=== PATIENT | female | born 1955 | race Caucasian/White ===

== ENCOUNTER 2017-12-24 11:31 | Inpatient (IN) | payer MEDICARE, OTHER ==
[~2017-12-24] VITALS: Ht 167.6 cm; Wt 54.0 kg
[~2017-12-24 11:31] MED LIST: ALBUTEROL SULF8.5 GM; BENZONATATE100 MG PO; CENESTIN0.625 MG; CIALIS10 MG PO; CITALOPRAM HBR10 MG PO; CITALOPRAM HBR20 MG PO; DOXYCYCLINE HY100 M2 IV; LINZESS PO; MEDROXYPROGEST2.5 MG; MIRALAX; PREDNISONE20 MG PO; VITAMIN D3 PO; ZEGERID 20 MG1 EACH PO; ZEGRID; [UNRECOGNIZED DRUG - OTHER]
--- OUTSIDE RECORDS SUMMARY | 2017-12-24 11:34 | XMS REPORT | Clinical Summary ---
Author Author [facility] Address Unknown Phone Unavailable Care Team Providers Care Civil Engineering Director Name Role Phone PCP Unavailable Allergies Not on File Current Medications Not on file Active Problems Not on file Social History Tobacco Use Types Packs/Day Years Used Date Never Assessed Sex Assigned at Date Recorded Not on file Last Filed Vital Signs Not on file Plan of Treatment Not on file Results Not on fileafter 12/23/2016
[2017-12-24] MEDS ORDERED: GLUCAGON FOR INJ 1 MG VIAL IV ONE (11:45)
[2017-12-24] MEDS ORDERED: LIDOCAINE VISC 2% SOLN 15 ML UDC ONE (12:06)
[2017-12-24] MEDS ORDERED: BELLADONNA ALK/PHENOBARBITAL 5 ML UDC ONE (12:06)
[2017-12-24] MEDS ORDERED: MAGNESIUM/ALUMINUM/SIMETHICONE 30 ML UDC ONE (12:07)
[2017-12-24] MEDS ORDERED: DONNATAL/LIDOCAINE/MAALOX 30 ML SUSP PO ONE (12:20)
[2017-12-24] MEDS ORDERED: ONDANSETRON HCL INJ 2 MG/ML VIAL IV STA (13:05)
[2017-12-24 13:23] LABS: BASOPHILS # (AUTO) 0.1 (0.0-0.1); BASOPHILS % 0.4 % (0.0-1.0); EOSINOPHILS % 0.1 % (0.0-6.0); HEMATOCRIT 50.1 % (34.2-44.1); HEMOGLOBIN 17.1 g/dL (12.0-16.0); LYMPHOCYTES # (AUTO) 0.8 (1.0-3.2); MEAN CORPUSCULAR HEMOGLOBIN 32.4 pg (28-32); MEAN CORPUSCULAR HGB CONC 34.1 g/dL (31-35); MEAN CORPUSCULAR VOLUME 94.9 fL (81-99); MONOCYTES # (AUTO) 0.7 (0.2-0.8); MONOCYTES % 3.6 % (4.4-11.3); NEUTROPHILS # (AUTO) 17.8 (2.1-6.9); NEUTROPHILS % 91.3 % (38.7-80.0); PLATELET COUNT 260 x10e3/uL (140-360); RED BLOOD COUNT 5.28 x10e6/uL (3.6-5.1); RED CELL DISTRIBUTION WIDTH 15.1 % (11.7-14.4)
[2017-12-24] MEDS: MORPHINE SULFATE INJ 4 MG/ML INJ IV PRN ×3 (13:37→19:40)
[2017-12-24 13:42] LABS: ALANINE AMINOTRANSFERASE 28 IU/L (0-55); ALBUMIN/GLOBULIN RATIO 1.3 (0.8-2.0); ALKALINE PHOSPHATASE 158 IU/L (40-150); ANION GAP 15.8 mmol/L (8-16); BLOOD UREA NITROGEN 11 mg/dL (7-26); BUN/CREATININE RATIO 12 (6-25); CALCIUM 10.5 mg/dL (8.4-10.2); CARBON DIOXIDE 23 mmol/L (22-29); CHLORIDE 101 mmol/L (98-107); CREATINE KINASE 40 IU/L (29-168); EST GLOMERULAR FILTRATION RATE > 60 ML/MIN (60-); GLUCOSE 222 mg/dL (74-118); POTASSIUM 3.8 mmol/L (3.5-5.1); SODIUM 136 mmol/L (136-145)
[2017-12-24] MEDS ORDERED: MORPHINE SULFATE 2 MG/ML SYR IV NR (15:22)
[2017-12-24] MEDS ORDERED: PROMETHAZINE 12.5MG/ NACL 0.9% 12.5 MG/50 ML BAG IV NR (15:30)
--- NOTE | 2017-12-24 17:22 | Diagnostic Imaging Report ---
EXAM: CT Abdomen and Pelvis WITH contrast INDICATION: Abdominal pain. Acid reflux. ^abd pain COMPARISON: None. TECHNIQUE: Abdomen and pelvis were scanned utilizing a multidetector helical scanner from the lung base to the pubic symphysis after administration of IV contrast. Coronal and sagittal reformations were obtained. Routine protocol was performed. Scan was performed during portal venous phase. IV CONTRAST: 100 mL of Isovue-370 ORAL CONTRAST: Water COMPLICATIONS: None RADIATION DOSE: Total DLP: 168.2 mGy*cm Estimated effective dose: (DLP x 0.015 x size factor) mSv CTDIvol has been reviewed. It is below the limits set by the Radiation Protocol Committee (RPC). FINDINGS: LINES and TUBES: None. LOWER THORAX: Left lower lobe calcified granuloma. HEPATOBILIARY: No focal hepatic lesions. No biliary ductal dilation. GALLBLADDER: Absent SPLEEN: No splenomegaly. PANCREAS: Low attenuating 2 cm lesion measures 43 HU and located in the pancreatic neck, indeterminate. No ductal dilatation. ADRENALS: No adrenal nodules KIDNEYS/URETERS: Kidneys enhance symmetrically. No hydronephrosis. No cystic or solid mass lesions. No stones. GI TRACT: Fluid within the esophagus which may be related to reflux or incomplete passage of water enteric contrast to the stomach. No abnormal distention, wall thickening, or evidence of bowel obstruction. Moderate amount of stool in the colon. Appendix is not clearly identified. There is however no fat stranding or adenopathy in the right lower quadrant to suggest appendicitis. PELVIC ORGANS/BLADDER: No evidence of the left gonadal vein and adnexal vessels which can be seen with pelvic congestion. LYMPH NODES: No lymphadenopathy. VESSELS: There is moderate atherosclerotic disease in the aorta and major arterial branches. Fusiform nonaneurysmal dilatation of the infrarenal abdominal aorta. Severe narrowing of the left common iliac artery at its origin. PERITONEUM / RETROPERITONEUM: Small amount of free fluid within the pelvis, unexpected in a postmenopausal patient but nonspecific. No free air. BONES: Hemangioma in the L3 vertebral body. No acute osseous lesions. SOFT TISSUES: Unremarkable. IMPRESSION: 1. No acute abnormalities in the abdomen and pelvis. 2. Low attenuating 2 cm pancreatic lesion is indeterminate. Recommend further evaluation with CT abdomen (pancreas protocol) for further evaluation. 3. Small amount of free fluid in the pelvis, unexpected in a postmenopausal patient but nonspecific. Signed by: DR. Oscar Parker MD on 12/24/2017 5:18 PM
[2017-12-24] MEDS ORDERED: DONNATAL/LIDOCAINE/MAALOX 30 ML SUSP PO NR (18:45)
[2017-12-24] MEDS ORDERED: MORPHINE SULFATE 2 MG/ML SYR IV PRN (18:45)
--- OUTSIDE RECORDS SUMMARY | 2017-12-24 18:45 | XMS REPORT ---
Author Author [facility] Address Unknown Phone Unavailable Care Team Providers Care Lathing Supervisor Name Role Phone Feliciano DIAZ Unavailable Unavailable Problems This patient has no known problems. Allergies, Adverse Reactions, Alerts This patient has no known allergies or adverse reactions. Medications This patient has no known medications. Results Test Description Test Time Test Comments Text Results Atomic Results Result Comments CT ABDOMEN/PELVIS W 2017-12-24 17:05:00 [place] [id number] Patient Name: ESTRELLA MCKEON MR #: [id number] : 1955 Age/Sex: 62/F Req #: [id number] [facility] Physician: Ordered by: CURLY DIAZ MD Report #: [id number] Location: ER Room/Bed: Procedure: [id number] CT/CT ABDOMEN/PELVIS W Exam Date: Exam Time: REPORT STATUS: Signed EXAM: CT Abdomen and Pelvis WITH contrast INDICATION: Abdominal pain. Acid reflux. abd pain COMPARISON: None. TECHNIQUE: Abdomen and pelvis were scanned utilizing a multidetector helical scanner from the lung base to the pubic symphysis after administration of IV contrast. Coronal and sagittal reformations were obtained. Routine protocol was performed. Scan was performed during portal venous phase. IV CONTRAST: 100 mL of Isovue- 370 ORAL CONTRAST: Water COMPLICATIONS: None RADIATION DOSE: Total DLP: 168.2 mGy*cm Estimated effective dose: (DLP x 0.015 x size factor) mSv CTDIvol has been reviewed. It is below the limits set by the Radiation Protocol Committee (RPC). FINDINGS: LINES and TUBES: None. LOWER THORAX: Left lower lobe calcified granuloma. HEPATOBILIARY: No focal hepatic lesions. No biliary ductal dilation. GALLBLADDER: Absent SPLEEN: No splenomegaly. PANCREAS: Low attenuating 2 cm lesion measures 43 HU and located in the pancreatic neck, indeterminate. No ductal dilatation. ADRENALS: No adrenal nodules KIDNEYS/URETERS: Kidneys enhance symmetrically. No hydronephrosis. No cystic or solid mass lesions. No stones. GI TRACT: Fluid within the esophagus which may be related to reflux or incomplete passage of water enteric contrast to the stomach. No abnormal distention, wall thickening, or evidence of bowel obstruction. Moderate amount of stool in the colon. Appendix is not clearly identified. There is however no fat stranding or adenopathy in the right lower quadrant to suggest appendicitis. PELVIC ORGANS/BLADDER: No evidence of the left gonadal vein and adnexal vessels which can be seen with pelvic congestion. LYMPH NODES: No lymphadenopathy. VESSELS: There is moderate atherosclerotic disease in the aorta and major arterial branches. Fusiform nonaneurysmal dilatation of the infrarenal abdominal aorta. Severe narrowing of the left common iliac artery at its origin. PERITONEUM / RETROPERITONEUM: Small amount of free fluid within the pelvis, unexpected in a postmenopausal patient but nonspecific. No free air. BONES: Hemangioma in the L3 vertebral body. No acute osseous lesions. SOFT TISSUES: Unremarkable. IMPRESSION: 1. No acute abnormalities in the abdomen and pelvis. 2. Low attenuating 2 cm pancreatic lesion is indetermi sharon. Recommend further evaluation with CT abdomen (pancreas protocol) for further evaluation. 3. Small amount of free fluid in the pelvis, unexpected in a postmenopausal patient but nonspecific. Signed by: DR. Oscar Ochoa MD on 12/24/2017 5:18 PM Dictated By: OSCAR OCHOA MD 17 Transcribed By: DANIEL on 12/24/171717 COPY TO: CURLY DIAZ MD
--- OUTSIDE RECORDS SUMMARY | 2017-12-24 18:45 | XMS REPORT | Clinical Summary ---
Author Author [facility] Address Unknown Phone Unavailable Care Team Providers Care Data Processing Supervisor Name Role Phone PCP Unavailable Allergies Not on File Current Medications Not on file Active Problems Not on file Social History Tobacco Use Types Packs/Day Years Used Date Never Assessed Sex Assigned at Date Recorded Not on file Last Filed Vital Signs Not on file Plan of Treatment Not on file Results Not on fileafter 12/23/2016
[2017-12-24] MEDS: ONDANSETRON HCL INJ 2 MG/ML VIAL IV PRN (19:40)
[2017-12-24 21:00] VITALS: BP 170/79
[2017-12-24 21:50] VITALS: BP 170/79
[2017-12-24] MEDS ORDERED: SODIUM CHLORIDE 0.9% 50ML 50 ML ONE (22:31)
[2017-12-24] MEDS ORDERED: IOPAMIDOL 370 MG/ML 200 ML INFUS..BTL INJ ONE (22:31)
[2017-12-24] MEDS ORDERED: PANTOPRAZOLE SOD 40 MG TABEC PO ONE (22:45)
[2017-12-24] MEDS: HYDROMORPHONE 2MG/ML 2 MG/ML ML IV PRN (22:55)
[2017-12-24] MEDS ORDERED: MIRALAX17 GM PO (23:38)
[2017-12-24] MEDS ORDERED: ZANTAC300 MG PO (23:38)
[2017-12-24] MEDS ORDERED: CIALIS20 MG PO (23:38)
[2017-12-25] VITALS (9 sets, daily range): BP systolic 57–119; BP diastolic 50–62
[2017-12-25] MEDS: ONDANSETRON HCL INJ 2 MG/ML VIAL IV PRN ×2 (03:53→11:30)
[2017-12-25] MEDS: HYDROMORPHONE 2MG/ML 2 MG/ML ML IV PRN (03:53)
[2017-12-25] MEDS ORDERED: NON-FORMULARY MEDICATION (Ranitidine Hcl (Zantac) 300 MG) PO PRN (04:00)
[2017-12-25] MEDS ORDERED: FAMOTIDINE 20 MG TAB PO PRN (04:15)
[2017-12-25] MEDS ORDERED: PROMETHAZINE 25MG/ NS 50ML (IV) IV PRN (05:15)
[2017-12-25 05:21] LABS: BASOPHILS # (AUTO) 0.1 (0.0-0.1); BASOPHILS % 0.4 % (0.0-1.0); EOSINOPHILS % 0.1 % (0.0-6.0); HEMATOCRIT 46.8 % (34.2-44.1); HEMOGLOBIN 15.9 g/dL (12.0-16.0); LYMPHOCYTES # (AUTO) 1.5 (1.0-3.2); LYMPHOCYTES % 9.2 % (18.0-39.1); MEAN CORPUSCULAR HEMOGLOBIN 32.3 pg (28-32); MEAN CORPUSCULAR VOLUME 95.1 fL (81-99); MONOCYTES # (AUTO) 1.5 (0.2-0.8); MONOCYTES % 9.4 % (4.4-11.3); NEUTROPHILS # (AUTO) 13.3 (2.1-6.9); NEUTROPHILS % 80.5 % (38.7-80.0); PLATELET COUNT 263 x10e3/uL (140-360); RED BLOOD COUNT 4.92 x10e6/uL (3.6-5.1); RED CELL DISTRIBUTION WIDTH 15.5 % (11.7-14.4)
[2017-12-25 05:49] LABS: ALBUMIN 3.9 g/dL (3.5-5.0); ALBUMIN/GLOBULIN RATIO 1.3 (0.8-2.0); ANION GAP 18.1 mmol/L (8-16); CALCIUM 10.4 mg/dL (8.4-10.2); CREATININE, SERUM 1.22 mg/dL (0.57-1.11); POTASSIUM 4.1 mmol/L (3.5-5.1)
[2017-12-25] MEDS ORDERED: SODIUM CHLORIDE 0.9% 1000ML 1,000 ML IV SCH ×2 (08:30)
[2017-12-25] MEDS: CITALOPRAM HYDROBROMIDE 20 MG TAB PO SCH (08:31)
[2017-12-25] MEDS: POLYETHYLENE GLYCOL 3350 17 GM PACK PO SCH (08:32)
[2017-12-25] MEDS: PANTOPRAZOLE SODIUM 40 MG SUSPDR.PKT PO SCH ×2 (08:32→16:22)
[2017-12-25] MEDS: TADALAFIL 20 MG PO SCH (08:32)
[2017-12-25] MEDS ORDERED: SODIUM BICARBONATE PO SCH (09:00)
[2017-12-25] MEDS ORDERED: NON-FORMULARY MEDICATION (Citalopram Hydrobromide (Citalopram Hbr) 10 MG) PO SCH (09:00)
[2017-12-25] MEDS ORDERED: OMEPRAZOLE PO SCH (09:00)
[2017-12-25] MEDS ORDERED: POLYETHYLENE GLYCOL PO SCH (09:00)
[2017-12-25] MEDS: MORPHINE SULFATE INJ 4 MG/ML INJ IV PRN (11:30)
--- NOTE | 2017-12-25 15:22 | Consultation ---
DATE OF CONSULTATION: December 25, 2017 GASTROENTEROLOGY CONSULTATION HISTORY OF PRESENT ILLNESS: This is a 62-year-old who presented to the hospital because of abdominal pain along with some nausea and vomiting. Patient denies any bleeding along with this problem. Her workup so far revealed that her liver enzymes were okay. Her WBC was high at 19,000 on admission. It is down to 16,000. She did have a CAT scan of the abdomen and pelvis which shows a 2 cm pancreatic lesion in the neck of the pancreas. There is small free fluid and air in the pelvis suspected. She has a history of scleroderma. ALLERGIES: NONE. CURRENT MEDICATIONS: Including morphine, MiraLAX, Protonix and Pepcid. SOCIAL HISTORY: No alcohol use. FAMILY HISTORY: Noncontributory. REVIEW OF SYSTEMS: Denies any chest pain or shortness of breath. Denies any dysphagia or odynophagia. Denies any dysuria, hematuria, or any kind of syncopal episode. PHYSICAL EXAMINATION GENERAL: The patient is awake, alert, appears to be stable. VITAL SIGNS: Afebrile currently. HEAD, EYES, EARS, NOSE AND THROAT: Normocephalic and atraumatic. Sclera is anicteric. NECK: Supple. HEART: Exam is regular. LUNGS: Exam clear. ABDOMEN: Soft. There is some tenderness in the epigastric area. There is no rebound or mass. EXTREMITIES: No clubbing or cyanosis. LAB VALUES: Significant for CMP appears to be normal, BUN of ____, ____ ____. WBC 16.46, hemoglobin of 15.9, hematocrit of 46.8. IMPRESSION 1. Abdominal pain, nausea and vomiting. 2. Pancreatic lesion. 3. Scleroderma. RECOMMENDATIONS: Continue on the current care at this point. I will add some Carafate at this point. Obtain CA19-9 and CEA. Patient will need to have an EGD and possible EUS with FNA. Job#: [id number] EV cc:NEGRA ROWE MD
[2017-12-25] MEDS ORDERED: DIPHENHYDRAMINE HCL 25 MG CAP PO ONE (16:15)
[2017-12-25] MEDS: SUCRALFATE 1 GM TAB PO SCH ×2 (16:22→20:25)
[2017-12-26] VITALS (8 sets, daily range): BP systolic 105–135; BP diastolic 56–73
[2017-12-26] MEDS: MORPHINE SULFATE INJ 4 MG/ML INJ IV PRN ×3 (00:52→19:22)
[2017-12-26] MEDS: ONDANSETRON HCL INJ 2 MG/ML VIAL IV PRN ×3 (00:52→19:22)
[2017-12-26 05:19] LABS: BASOPHILS # (AUTO) 0.1 (0.0-0.1); BASOPHILS % 0.8 % (0.0-1.0); EOSINOPHILS # (AUTO) 0.5 (0.0-0.4); EOSINOPHILS % 4.2 % (0.0-6.0); HEMATOCRIT 40.5 % (34.2-44.1); HEMOGLOBIN 13.6 g/dL (12.0-16.0); LYMPHOCYTES # (AUTO) 2.3 (1.0-3.2); LYMPHOCYTES % 19.7 % (18.0-39.1); MEAN CORPUSCULAR HEMOGLOBIN 32.5 pg (28-32); MEAN CORPUSCULAR HGB CONC 33.6 g/dL (31-35); MEAN CORPUSCULAR VOLUME 96.7 fL (81-99); MONOCYTES # (AUTO) 1.5 (0.2-0.8); MONOCYTES % 12.5 % (4.4-11.3); NEUTROPHILS # (AUTO) 7.4 (2.1-6.9); NEUTROPHILS % 62.5 % (38.7-80.0); PLATELET COUNT 185 x10e3/uL (140-360); RED BLOOD COUNT 4.19 x10e6/uL (3.6-5.1); RED CELL DISTRIBUTION WIDTH 15.5 % (11.7-14.4)
[2017-12-26] MEDS: SUCRALFATE 1 GM TAB PO SCH ×2 (07:30→12:24)
[2017-12-26] MEDS: TADALAFIL 20 MG PO SCH (09:00)
[2017-12-26] MEDS: CITALOPRAM HYDROBROMIDE 20 MG TAB PO SCH (09:57)
[2017-12-26] MEDS: PANTOPRAZOLE SODIUM 40 MG SUSPDR.PKT PO SCH ×2 (09:57→17:47)
[2017-12-26] MEDS: POLYETHYLENE GLYCOL 3350 17 GM PACK PO SCH (09:57)
--- NOTE | 2017-12-26 19:16 | Progress Note ---
DATE: December 26, 2017 SUBJECTIVE: Patient reports no vomiting; however, she still continues to have intermittent nausea. She is able to tolerate cardiac diet. REVIEW OF SYSTEMS GENERAL: No fever or chills. CVS: No chest pain or palpitation. RESPIRATORY: No cough or expectoration. MEDICATIONS: Reviewed as per MAY. She is on sucralfate, polyethylene glycol, pantoprazole 40 mg twice daily, citalopram, morphine sulfate 4 mg IV q.4 hours as needed, Zofran, famotidine 40 mg p.o. daily as needed. PHYSICAL EXAMINATION VITAL SIGNS: Temperature 98.6, pulse 84, respirations 18, and pulse ox 94 on room air. GENERAL: Not in any acute distress. HEENT: Oral mucosa is moist. Anicteric sclerae. ABDOMEN: Soft. Mild epigastric tenderness on deep palpation without rebound, rigidity, or guarding. Positive bowel sounds. LABS: WBC has come down to 11.89, hemoglobin 13.6, hematocrit 40.5, and platelet count 185. Sodium 138, potassium 4.1, chloride 102, bicarb 22, BUN 17, creatinine 1.22, and glucose 110. Liver enzymes normal. CT of the abdomen and pelvis with IV and oral contrast done on December 24, 2017 showed low attenuating 2 cm pancreatic lesion, located in the pancreatic neck, this is indeterminate. No acute intra-abdominal pathology. IMPRESSION 1. Nausea, vomiting, and epigastric pain. Nausea has resolved. Esophagogastroduodenoscopy has been planned on Thursday. Patient told me that she is taking 2 to 3 pills of ibuprofen every day for headache for any months. This puts her at risk of developing peptic ulcer disease. 2. A 2 cm hypoattenuating lesion in the pancreatic neck. This certainly needs further evaluation with endoscopic ultrasound and fine-needle aspiration cytology. This can be done electively as an outpatient. 3. Patient is on sucralfate, Zofran as well as morphine. This put her at the risk of constipation. Therefore, she should be on extending bowel regimen. Patient is also on famotidine as well as pantoprazole. I do not feel the need to continue on both; therefore, discontinuing famotidine. PLAN: Continue present management. Advance diet as tolerated. EGD on Thursday. NPO past Thursday midnight. EGD on Thursday by Dr. Dover. Job#: [id number] YOLANDA
[2017-12-26] MEDS: SENNA-S TABLET PO SCH (20:20)
[2017-12-27] VITALS (9 sets, daily range): BP systolic 114–141; BP diastolic 58–68
[2017-12-27] MEDS: POLYETHYLENE GLYCOL 3350 17 GM PACK PO SCH (08:40)
[2017-12-27] MEDS: MORPHINE SULFATE INJ 4 MG/ML INJ IV PRN ×3 (08:40→19:30)
[2017-12-27] MEDS: ONDANSETRON HCL INJ 2 MG/ML VIAL IV PRN ×3 (08:40→19:30)
[2017-12-27] MEDS: CITALOPRAM HYDROBROMIDE 20 MG TAB PO SCH (08:40)
[2017-12-27] MEDS: TADALAFIL 20 MG PO SCH (09:00)
[2017-12-27] MEDS: PANTOPRAZOLE SODIUM 40 MG SUSPDR.PKT PO SCH ×2 (09:00→16:42)
--- NOTE | 2017-12-27 20:00 | Progress Note ---
DATE: December 27, 2017 GI PROGRESS NOTE SUBJECTIVE: Patient reports occasional nausea without any vomiting. She was able to tolerate full liquid diet. Has had a very small bowel movement yesterday. REVIEW OF SYSTEMS GENERAL: No fever or chills. RESPIRATORY: No cough or expectoration. CVS: No chest pain or palpitation. MEDICATIONS: Pantoprazole 40 mg IV twice daily, morphine 4 mg IV q.4 hours as needed, Zofran 4 mg IV q.4 hours as needed, MiraLax 17 g daily, citalopram 10 mg daily, Senna with docusate 2 pills q.h.s. PHYSICAL EXAMINATION VITAL SIGNS: Temperature 96.8, pulse 71, respirations 18, blood pressure 141/67, oxygen saturation 97% on room air. GENERAL: Not in any acute distress. Oral mucosa is moist. Anicteric sclerae. ABDOMEN: Soft. Mild palpable epigastric tenderness. No other mass or hernia. Positive bowel sounds. IMPRESSION 1. Nausea and vomiting has resolved. 2. Epigastric pain, high suspicion of peptic ulcer disease given regular chronic use of ibuprofen. 3. Constipation, likely slow transit in nature. PLAN: Agreed to continue PPI twice daily. Avoid NSAIDs. Daily stranding bowel regimen to ensure 1 or 2 bowel movements daily. N.p.o. past midnight. EGD tomorrow by Dr. Dover. Job#: [id number] RTY
[2017-12-27] MEDS: SENNA-S TABLET PO SCH (20:40)
[2017-12-28] VITALS (7 sets, daily range): BP systolic 101–121; BP diastolic 51–65
[2017-12-28] MEDS: PANTOPRAZOLE SODIUM 40 MG SUSPDR.PKT PO SCH ×2 (09:00→17:00)
[2017-12-28] MEDS: POLYETHYLENE GLYCOL 3350 17 GM PACK PO SCH (09:00)
[2017-12-28] MEDS: TADALAFIL 20 MG PO SCH (09:00)
[2017-12-28] MEDS: CITALOPRAM HYDROBROMIDE 20 MG TAB PO SCH (09:00)
[2017-12-28] MEDS: MORPHINE SULFATE INJ 4 MG/ML INJ IV PRN ×3 (09:13→20:18)
[2017-12-28] MEDS: ONDANSETRON HCL INJ 2 MG/ML VIAL IV PRN ×2 (09:13→20:18)
[2017-12-28] MEDS ORDERED: MIDAZOLAM HCL 2 MG/2 ML VIAL ONE (18:28)
[2017-12-28] MEDS ORDERED: PROPOFOL IV EMULSION 10 MG/ML 20 ML VIAL ONE (19:03)
[2017-12-28] MEDS: SENNA-S TABLET PO SCH (20:17)
[2017-12-29] VITALS (7 sets, daily range): BP systolic 109–161; BP diastolic 55–82
[2017-12-29] MEDS: MORPHINE SULFATE INJ 4 MG/ML INJ IV PRN ×4 (07:49→21:49)
[2017-12-29] MEDS: POLYETHYLENE GLYCOL 3350 17 GM PACK PO SCH (09:00)
[2017-12-29] MEDS: PANTOPRAZOLE SODIUM 40 MG SUSPDR.PKT PO SCH ×2 (09:00→17:00)
[2017-12-29] MEDS: TADALAFIL 20 MG PO SCH (09:00)
[2017-12-29] MEDS: CITALOPRAM HYDROBROMIDE 20 MG TAB PO SCH (09:00)
[2017-12-29] MEDS: SENNA-S TABLET PO SCH (21:00)
[2017-12-29] MEDS: ONDANSETRON HCL INJ 2 MG/ML VIAL IV PRN (21:48)
[2017-12-30] VITALS: BP 96/56
[2017-12-30 04:00] VITALS: BP 120/66
[2017-12-30 06:14] LABS: BASOPHILS # (AUTO) 0.1 (0.0-0.1); BASOPHILS % 0.9 % (0.0-1.0); EOSINOPHILS # (AUTO) 0.4 (0.0-0.4); EOSINOPHILS % 6.5 % (0.0-6.0); HEMATOCRIT 41.5 % (34.2-44.1); HEMOGLOBIN 13.8 g/dL (12.0-16.0); LYMPHOCYTES # (AUTO) 1.8 (1.0-3.2); LYMPHOCYTES % 26.5 % (18.0-39.1); MEAN CORPUSCULAR HEMOGLOBIN 32.3 pg (28-32); MEAN CORPUSCULAR HGB CONC 33.3 g/dL (31-35); MEAN CORPUSCULAR VOLUME 97.2 fL (81-99); MONOCYTES # (AUTO) 0.6 (0.2-0.8); MONOCYTES % 8.7 % (4.4-11.3); NEUTROPHILS # (AUTO) 3.8 (2.1-6.9); NEUTROPHILS % 57.2 % (38.7-80.0); PLATELET COUNT 196 x10e3/uL (140-360); RED BLOOD COUNT 4.27 x10e6/uL (3.6-5.1); RED CELL DISTRIBUTION WIDTH 14.6 % (11.7-14.4)
[2017-12-30 06:40] LABS: ALANINE AMINOTRANSFERASE 26 IU/L (0-55); ALBUMIN 3.1 g/dL (3.5-5.0); ALBUMIN/GLOBULIN RATIO 1.2 (0.8-2.0); ALKALINE PHOSPHATASE 116 IU/L (40-150); ANION GAP 11.9 mmol/L (8-16); BLOOD UREA NITROGEN 6 mg/dL (7-26); BUN/CREATININE RATIO 8 (6-25); CALCIUM 9.5 mg/dL (8.4-10.2); CARBON DIOXIDE 24 mmol/L (22-29); CHLORIDE 104 mmol/L (98-107); CREATININE, SERUM 0.71 mg/dL (0.57-1.11); EST GLOMERULAR FILTRATION RATE > 60 ML/MIN (60-); GLUCOSE 81 mg/dL (74-118); POTASSIUM 3.9 mmol/L (3.5-5.1); SODIUM 136 mmol/L (136-145)
[2017-12-30 07:15] VITALS: BP 127/69
[2017-12-30] MEDS: PANTOPRAZOLE SODIUM 40 MG SUSPDR.PKT PO SCH (09:00)
[2017-12-30] MEDS: TADALAFIL 20 MG PO SCH (09:00)
[2017-12-30] MEDS: CITALOPRAM HYDROBROMIDE 20 MG TAB PO SCH (09:00)
[2017-12-30] MEDS: POLYETHYLENE GLYCOL 3350 17 GM PACK PO SCH (09:00)
[2017-12-30 09:06] VITALS: BP 127/69
[2017-12-30] MEDS: ONDANSETRON HCL INJ 2 MG/ML VIAL IV PRN (10:07)
[2017-12-30] MEDS: MORPHINE SULFATE INJ 4 MG/ML INJ IV PRN (10:08)
[2017-12-30 11:20] VITALS: BP 133/73
[2017-12-30 12:46] LABS: PLATELET ESTIMATE ADEQUATE; PLATELET MORPHOLOGY COMMENT FEW LARGE; RBC MORPHOLOGY COMMENT NORMAL
--- NOTE | 2018-03-06 19:43 | Discharge Summary ---
DISCHARGE DIAGNOSES 1. Abdominal pain. 2. Scleroderma. HISTORY OF PRESENT ILLNESS AND HOSPITAL COURSE: Patient is a 62-year-old with history of scleroderma, who presents with significant abdominal pain that was affecting her p.o. intake. She was brought in, placed on pain control, seen by GI who performed an EGD that just shows some mild gastritis, but otherwise unremarkable exam. He did some biopsies. I also did an upper GI. Please see report for full details. At the time of discharge, patient was feeling significantly better, being on a proton pump inhibitor. So, she was discharged home with continuation of that medication and follow up in 1 to 2 weeks with me as well as 1 [address] Dover of GI. Please see hospital chart for full details. Job#: [id number] CHIRAG
== END 2017-12-30 11:53 | disposition home or self-care (01) | DRG 384 ==
LOC: ER 11:31 → ERHOLD 18:32 → IMCU 20:52 → OBSVTOIN 12-27 06:53 → MED/SURG3 12-27 10:01
PROVIDERS: ADMIT Internal Medicine; ATTEND Internal Medicine
PROC: 0DB68ZX Excision of Stomach, Via Natural or Artificial Opening Endoscopic, Diagnostic (ICD-10-PCS; principal; 2017-12-27)
DX: K27.9 Peptic ulcer, site unspecified, unspecified as acute or chronic, without hemorrhage or perforation (principal); E44.1 Mild protein-calorie malnutrition; Z68.1 Body mass index [BMI] 19.9 or less, adult; R14.0 Abdominal distension (gaseous); K21.9 Gastro-esophageal reflux disease without esophagitis; K59.00 Constipation, unspecified; N18.3 Chronic kidney disease, stage 3 (moderate); M34.9 Systemic sclerosis, unspecified
CPT/HCPCS: 36415; 43239; 74177; 80053; 82378; 82550; 82553; 83690; 83735; 84484; 85025; 86301; 88305; 88312; 96374; 96375; 96376; 99284; G0378; J1610; J2250; J2270; J2405; J2550; J7030; Q9967

== ENCOUNTER → 2018-01-20 | Outpatient (CLI) | payer MEDICARE ==
[~2018-01-20] MED LIST changes: +CIALIS20 MG PO; +MIRALAX17 GM PO; +ZANTAC300 MG PO
--- NOTE | 2018-01-20 19:43 | Diagnostic Imaging Report ---
Solid-phase gastric emptying study Reason for examination: 62 F with scleroderma; persistent complaint of food gets stuck in her throat. Reports narrowing of the esophagus and dysfunction of the lower esophageal sphincter. The protocol used for this study is based on the Consensus Recommendations for Gastric Scintigraphy by the [place] [employer] Society and the Society of Nuclear Medicine. Clinical information: The patient is not diabetic. The patient has not had prior gastrointestinal surgery other than cholecystectomy in 1978. The patient is not on any medications expected to affect gastric motility. The patient has been fasting for at least 6 hours prior to this exam. Radiopharmaceutical: Tc-99m sulfur colloid 1 mCi Report: The radiopharmaceutical was added to 1/2 cup egg whites that were then prepared and served with 2 pieces of white bread toasted, 30 grams of jam and 4 ounces of water. The patient took the meal orally without difficulty. Images were obtained of the abdomen in the anterior and posterior projections at 10 minutes post the meal and at 1, 2, 3, and 4 hours. Uptake was determined from the geometric mean of the anterior and posterior counts and the counts were corrected for decay of the radiolabel. The percent gastric retention of the labeled meal at: 1 hour was 40% (normal 30-90%) 2 hours was 16% (normal <60%) 3 hours was 4% (normal <30%) 4 hours was 3% (normal <10%) Some tracer is seen in the esophagus on the initial baseline image and persists through one hour but is not present at 2 hours. Impression: Normal gastric emptying pattern. The findings do not support the clinical diagnosis of gastroparesis. Esophageal retention of some of the labeled meal is seen at baseline and decreases by one hour and is gone by the second hour. Signed by: Dr. Shakila Fiore M.D. on 01/20/2018 7:40 PM
== END ==
LOC: NM 09:46
PROVIDERS: ATTEND Internal Medicine Gastroenterology
DX: R10.13 Epigastric pain (principal); R19.09 Other intra-abdominal and pelvic swelling, mass and lump; Z68.1 Body mass index [BMI] 19.9 or less, adult
CPT/HCPCS: 78264; A9541

== ENCOUNTER 2018-12-01 12:19 | Emergency (ER) | payer MEDICARE, OTHER ==
[~2018-12-01] VITALS: Ht 167.6 cm; Wt 54.0 kg
--- OUTSIDE RECORDS SUMMARY | 2018-12-01 12:23 | XMS REPORT | Clinical Summary ---
Author Author [facility] Address Unknown Phone Unavailable Care Team Providers Care Aerial Gunner Superintendent Name Role Phone PCP Unavailable Allergies Not on File Medications Not on file Active Problems Not on file Social History Date Tobacco Use Types Packs/Day Years Used Never Assessed Sex Assigned at Date Recorded Not on file Industry Job Start Date Occupation Not on file Not on file Not on file Travel End Travel History Travel Start No recent travel history available. Last Filed Vital Signs Not on file Plan of Treatment Not on file Results Not on fileafter 11/30/2017
[2018-12-01 13:10] LABS: BASOPHILS # (AUTO) 0.1 (0.0-0.1); BASOPHILS % 1.1 % (0.0-1.0); EOSINOPHILS # (AUTO) 0.1 (0.0-0.4); EOSINOPHILS % 1.8 % (0.0-6.0); HEMATOCRIT 41.7 % (34.2-44.1); HEMOGLOBIN 13.6 g/dL (12.0-16.0); LYMPHOCYTES # (AUTO) 1.2 (1.0-3.2); MEAN CORPUSCULAR HEMOGLOBIN 30.1 pg (28-32); MEAN CORPUSCULAR HGB CONC 32.6 g/dL (31-35); MEAN CORPUSCULAR VOLUME 92.3 fL (81-99); MONOCYTES # (AUTO) 0.5 (0.2-0.8); MONOCYTES % 7.7 % (4.4-11.3); NEUTROPHILS # (AUTO) 4.7 (2.1-6.9); NEUTROPHILS % 71.2 % (38.7-80.0); PLATELET COUNT 240 x10e3/uL (140-360); RED BLOOD COUNT 4.52 x10e6/uL (3.6-5.1); RED CELL DISTRIBUTION WIDTH 15.5 % (11.7-14.4)
[2018-12-01 13:22] LABS: INR 0.94; PROTHROMBIN TIME 13.1 seconds (11.9-14.5)
[2018-12-01 13:23] LABS: PARTIAL THROMBOPLASTIN TIME 30.3 seconds (23.8-35.5)
[2018-12-01 13:48] LABS: ALANINE AMINOTRANSFERASE 40 IU/L (0-55); ALBUMIN 3.3 g/dL (3.5-5.0); ALBUMIN/GLOBULIN RATIO 0.9 (0.8-2.0); ALKALINE PHOSPHATASE 133 IU/L (40-150); ANION GAP 14.7 mmol/L (8-16); BLOOD UREA NITROGEN 14 mg/dL (7-26); BUN/CREATININE RATIO 18 (6-25); CALCIUM 9.4 mg/dL (8.4-10.2); CARBON DIOXIDE 22 mmol/L (22-29); CHLORIDE 102 mmol/L (98-107); CREATINE KINASE 45 IU/L (29-168); CREATININE, SERUM 0.79 mg/dL (0.57-1.11); EST GLOMERULAR FILTRATION RATE > 60 ML/MIN (60-); GLUCOSE 90 mg/dL (74-118); SODIUM 133 mmol/L (136-145)
[2018-12-01 13:59] LABS: POTASSIUM 5.7 mmol/L (3.5-5.1)
--- NOTE | 2018-12-01 14:53 | Diagnostic Imaging Report ---
EXAMINATION: CHEST 2 VIEWS INDICATION: Cough COMPARISON: Chest radiograph of 05/22/2016 FINDINGS: LINES/TUBES:None LUNGS:The lungs are well-inflated. No focal consolidation or pulmonary edema. Unchanged left lower lobe calcified granuloma PLEURA:No pleural effusion or pneumothorax. MEDIASTINUM:The cardiomediastinal silhouette appears normal in size and shape. Atherosclerotic calcifications of the thoracic aorta. BONES/SOFT TISSUES:No acute osseous injury. ABDOMEN:No free air under the diaphragm. IMPRESSION: No focal pneumonia or pulmonary edema. Signed by: Cristal Luz MD on 12/01/2018 2:49 PM
[2018-12-01] MEDS ORDERED: IPRATROPIUM BROMIDE 0.02% 2.5 ML NEB NEB STA (15:10)
[2018-12-01] MEDS ORDERED: METHYLPREDNISOLONE SOD SUCC 125 MG/2ML VIAL IV STA (15:10)
[2018-12-01] MEDS ORDERED: ALBUTEROL SULF 0.083% NEB SOLN 3 ML NEB NEB STA (15:10)
[2018-12-01] MEDS ORDERED: SODIUM CHLORIDE 0.9% 1000ML 1,000 ML IV STA (15:12)
[2018-12-01] MEDS ORDERED: SODIUM CHLORIDE 0.9% 1000ML 1,000 ML ONE (15:17)
== END 2018-12-01 17:20 | disposition home or self-care (01) ==
LOC: ER 12:19
DX: R05 Cough (principal); R06.02 Shortness of breath; J20.9 Acute bronchitis, unspecified; J44.9 Chronic obstructive pulmonary disease, unspecified; M34.9 Systemic sclerosis, unspecified; I73.00 Raynaud's syndrome without gangrene; F17.210 Nicotine dependence, cigarettes, uncomplicated
CPT/HCPCS: 36415; 71046; 80053; 82550; 82553; 84132; 84484; 85025; 85610; 85730; 87400; 94640; 99284; J2930; J7030

== ENCOUNTER 2019-07-01 12:24 | Inpatient (IN) | payer MEDICARE, OTHER ==
[~2019-07-01] VITALS: Ht 167.6 cm; Wt 54.1 kg
[2019-07-01 12:59] LABS: BASOPHILS # (AUTO) 0.1 (0.0-0.1); BASOPHILS % 0.6 % (0.0-1.0); EOSINOPHILS # (AUTO) 0.1 (0.0-0.4); EOSINOPHILS % 0.5 % (0.0-6.0); HEMATOCRIT 40.8 % (34.2-44.1); HEMOGLOBIN 13.5 g/dL (12.0-16.0); LYMPHOCYTES # (AUTO) 1.9 (1.0-3.2); MEAN CORPUSCULAR HEMOGLOBIN 28.2 pg (28-32); MEAN CORPUSCULAR HGB CONC 33.1 g/dL (31-35); MEAN CORPUSCULAR VOLUME 85.4 fL (81-99); MONOCYTES # (AUTO) 0.5 (0.2-0.8); MONOCYTES % 4.7 % (4.4-11.3); NEUTROPHILS # (AUTO) 8.5 (2.1-6.9); NEUTROPHILS % 76.8 % (38.7-80.0); PLATELET COUNT 303 x10e3/uL (140-360); RED BLOOD COUNT 4.78 x10e6/uL (3.6-5.1); RED CELL DISTRIBUTION WIDTH 15.8 % (11.7-14.4)
[2019-07-01] MEDS: MORPHINE SULFATE INJ 4 MG/ML INJ 1ML IV PRN ×3 (13:10→21:09)
[2019-07-01] MEDS: ONDANSETRON HCL INJ 2MG/ML 2ML 2 MG/ML VIAL IV PRN ×2 (13:10→21:08)
[2019-07-01 13:18] LABS: ALANINE AMINOTRANSFERASE 17 IU/L (0-55); ALBUMIN 3.8 g/dL (3.5-5.0); ALBUMIN/GLOBULIN RATIO 1.1 (0.8-2.0); ALKALINE PHOSPHATASE 139 IU/L (40-150); BLOOD UREA NITROGEN 12 mg/dL (7-26); BUN/CREATININE RATIO 16 (6-25); CALCIUM 10.3 mg/dL (8.4-10.2); CARBON DIOXIDE 26 mmol/L (22-29); CHLORIDE 100 mmol/L (98-107); CREATINE KINASE 67 IU/L (29-168); CREATININE, SERUM 0.77 mg/dL (0.57-1.11); EST GLOMERULAR FILTRATION RATE > 60 ML/MIN (60-); GLUCOSE 104 mg/dL (74-118); SODIUM 133 mmol/L (136-145)
[2019-07-01] MEDS ORDERED: FENTANYL CITRATE/PF 100MCG/2 ML INJ IV ONE (14:30)
[2019-07-01] MEDS ORDERED: FENTANYL CITRATE/PF 100MCG/2 ML INJ ONE (14:37)
--- NOTE | 2019-07-01 14:40 | NUR ---
ARRIVED VIA WC FROM ER, AA&OX3, RA, LUNCH TRAY SET UP, PT STATES "ONGOING PAIN ON LEFT FINGER", ORIENTED TO ROOM AND CALL LIGHT SYSTEM, CALL LIGHT WITHIN REACH
[2019-07-01 16:48] VITALS: BP 146/75
--- NOTE | 2019-07-01 17:00 | NUR ---
Dr. Moreau notified that the radiologist is reluctant to perform the ordered CTA and he was provided the radiolgy number and he will call and speak to them.
[2019-07-01] MEDS ORDERED: HEPARIN SOD (PORCINE) 5,000 UNIT/ML VIAL IV NR (17:45)
[2019-07-01] MEDS ORDERED: NIFEDIPINE CR 30 MG TAB PO SCH (18:15)
[2019-07-01 18:24] VITALS: BP 169/92
[2019-07-01 19:12] LABS: BASOPHILS # (AUTO) 0.1 (0.0-0.1); BASOPHILS % 0.7 % (0.0-1.0); EOSINOPHILS # (AUTO) 0.1 (0.0-0.4); EOSINOPHILS % 0.9 % (0.0-6.0); HEMATOCRIT 35.5 % (34.2-44.1); HEMOGLOBIN 11.7 g/dL (12.0-16.0); LYMPHOCYTES # (AUTO) 2.1 (1.0-3.2); LYMPHOCYTES % 25.3 % (18.0-39.1); MEAN CORPUSCULAR HEMOGLOBIN 28.1 pg (28-32); MEAN CORPUSCULAR VOLUME 85.3 fL (81-99); MONOCYTES # (AUTO) 0.8 (0.2-0.8); MONOCYTES % 9.6 % (4.4-11.3); NEUTROPHILS # (AUTO) 5.2 (2.1-6.9); NEUTROPHILS % 63.3 % (38.7-80.0); PLATELET COUNT 252 x10e3/uL (140-360); RED BLOOD COUNT 4.16 x10e6/uL (3.6-5.1); RED CELL DISTRIBUTION WIDTH 15.9 % (11.7-14.4)
--- NOTE | 2019-07-01 19:25 | NUR ---
Report to the oncoming nurse.
--- NOTE | 2019-07-01 19:30 | NUR ---
RECEIVED THE PATIENT IN REPORT.LYEING IN THE BED.BED LOCKED AND IN LOWEST POSITION.STABLE CONDITION.
[2019-07-01 20:00] VITALS: BP 136/74
[2019-07-01 20:08] LABS: INR 0.89; PARTIAL THROMBOPLASTIN TIME 30.4 seconds (23.8-35.5); PROTHROMBIN TIME 12.6 seconds (11.9-14.5)
[2019-07-01] MEDS: DEXTROSE 5% IV SCH (21:00)
[2019-07-01] MEDS: HEPARIN IV SCH (21:00)
--- NOTE | 2019-07-01 21:00 | NUR ---
HEPARIN DRIP STARTED @9.5 ML/HR.STABLE CONDITION.ASSESSMENT DONE.NO RESP.DISTRESS.PHONE AND CALL LIGHT WITHIN REACH.INSTRUCTED TO CALL FOR ASSISTANCE NEEDED.
[2019-07-01 21:01] VITALS: BP 136/74
--- NOTE | 2019-07-01 23:10 | Consultation ---
DATE OF CONSULTATION: 07/01/2019 Cardiology Consultation REQUESTING PHYSICIAN: Chon Reese MD. REASON FOR CONSULTATION: Ischemia of the right hand. HISTORY OF PRESENT ILLNESS: This is a 64-year-old woman with history of emphysema, scleroderma, and Raynaud, who presents with complaints of right middle finger pain and swelling. She states this began approximately one month ago. She was given oral antibiotics without improvement in her symptoms. She notes that she has had pallor and discoloration of the right middle finger for a couple of weeks, worse in the last few days. She therefore was sent to the ER for further evaluation. She denies any chest pain, shortness of breath, palpitations, edema, orthopnea or PND. REVIEW OF SYSTEMS: Negative except as per HPI. PAST MEDICAL HISTORY: 1. Emphysema. 2. Scleroderma. 3. Raynaud. PAST SURGICAL HISTORY: 1. 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 2. Tubal ligation. ALLERGIES: PLEASE SEE EMR. MEDICATIONS: Please see medication list. SOCIAL HISTORY: Smokes approximately 4 cigarettes a month. Denies any alcohol or illicit drugs. FAMILY HISTORY: Denies. PHYSICAL EXAMINATION: VITAL SIGNS: Temperature 97.8 degrees, pulse 67, respiratory rate 20, blood pressure 146/75, oxygen saturation 94%. GENERAL: Well-developed, thin woman, in no acute distress. Awake and alert. HEENT: Normocephalic, atraumatic. Pupils equal. No scleral icterus. NECK: Supple. No thyromegaly or cervical lymphadenopathy. No carotid bruits. LUNGS: Clear to auscultation bilaterally. No wheezes or crackles. HEART: Normal rate, regular rhythm. No murmur. Normal S1, S2. ABDOMEN: Soft, nontender. EXTREMITIES: No edema. Multiple finger amputations are noted. The right middle finger is noted to be pale and cool to palpation with discoloration of the tip. LABORATORY DATA: WBC 11.09, hemoglobin 13.5, hematocrit 40.8, platelets 303. Sodium 133, potassium 4, chloride 100, CO2 of 26, BUN 12, creatinine 0.77. IMPRESSION: 1. Ischemia of the right middle digit. 2. Scleroderma. 3. Raynaud. 4. Emphysema. RECOMMENDATIONS: Start the patient on heparin drip. We will obtain CT angiogram of the right upper extremity to evaluate for any stenosis or occlusion. The patient's blood pressure is elevated, we will start her on calcium channel blockers given her history of Raynaud. We will plan to start nifedipine. We would also like to place topical nitrates, however, the patient is on Cialis as an outpatient. We will avoid topical nitrates at this time. Monitor the hand. Further recommendations pending test results. Thank you for this consult. We will continue. Vanna Rowe MD ABS/MODL /[id number]
[2019-07-02] VITALS (7 sets, daily range): BP systolic 110–136; BP diastolic 61–83
[2019-07-02] MEDS: MORPHINE SULFATE INJ 4 MG/ML INJ 1ML IV PRN ×5 (01:20→17:47)
--- NOTE | 2019-07-02 03:30 | NUR ---
BLOOD TAHIR AND SENT TO THE LAB FOR PTT.
--- NOTE | 2019-07-02 05:00 | NUR ---
PTT IS 139.0.HELD HEPARIN INFUSION FOR 60 MTS.
[2019-07-02] MEDS: ONDANSETRON HCL INJ 2MG/ML 2ML 2 MG/ML VIAL IV PRN (05:02)
--- NOTE | 2019-07-02 06:00 | NUR ---
Heparin drip started 7.5 ml /hr.stable condition.
--- NOTE | 2019-07-02 07:04 | NUR ---
BED SIDE SHIFT REPORT GIVEN TO ONCOMING RN.STABLE CONDITION.
[2019-07-02] MEDS ORDERED: PROMETHAZINE 12.5MG/ NACL 0.9% 12.5 MG/50 ML BAG IV PRN (08:15)
[2019-07-02] MEDS: PROMETHAZINE HCL 25 MG TAB PO PRN ×3 (08:56→17:49)
[2019-07-02] MEDS: NIFEDIPINE CR 30 MG TAB PO SCH (09:00)
--- NOTE | 2019-07-02 10:30 | NUR ---
RECD PT IN BED ,C/O LT HAND PAIN LEVEL 3,
--- NOTE | 2019-07-02 10:36 | Progress Note ---
DATE: Cardiology Progress Note SUBJECTIVE: The patient continues to have pain in her right hand 3rd digit. She states this pain is quite severe and has kept her awake most of the night. Also, endorses some occasional fluttering of her heart. Denies any chest pain or shortness of breath. OBJECTIVE: VITAL SIGNS: Temperature 98.3, pulse 66, respiratory rate 16, blood pressure 118/65, oxygen saturation 91% on room air. GENERAL: Alert and oriented x3. Resting comfortably in bed. NECK: Supple. No JVD noted. LUNGS: Diminished breath sounds throughout. No wheezing. No rhonchi or crackles. CARDIOVASCULAR: Normal rate and rhythm. No murmurs, no gallops. ABDOMEN: Soft, nontender. EXTREMITIES: Lower extremity, no edema. Upper extremity, multiple finger amputations noted on the left hand. Right hand missing the 2nd digit. The 3rd digit on the right hand noted to be pale and cool on palpation and discoloration of the tip of it and severe pain upon touching. CARDIOVASCULAR MEDICATIONS: 1. Heparin IV drip. 2. Nifedipine 30 mg p.o. daily. LABORATORY DATA: Labs, PTT 139. IMPRESSION: 1. Ischemia of the right middle digit. 2. Scleroderma. 3. Raynaud syndrome. 4. Emphysema. RECOMMENDATIONS: Continue heparin drip. Plans to obtain a CT angiogram of the right upper extremity to evaluate any stenosis or occlusion. Ultrasound to her right upper extremity is pending. Order will be changed to be urgent. Continue calcium channel ameena, given her history of Raynaud and also elevated blood pressure. We would also like to place on topical nitrates, however, the patient is on Cialis outpatient. She reports her last dose was 2 days ago. Further recommendations will follow after testing. Dictated by Mikey Moreau MD MD LAKISHA Joe/BLAISEL /[id number]
--- NOTE | 2019-07-02 10:46 | Progress Note ---
DATE: SUBJECTIVE: The patient is a 64-year-old female, who came in with Raynaud's phenomenon with peripheral arterial disease. The patient has pain in the left middle digit, tender, 10/10 in intensity. She has been taking pain medications every 4 hours, asking for more, also nausea. Ongoing patient's current medication, heparin drip, nifedipine, Zofran and morphine. OBJECTIVE: VITAL SIGNS: Temperature is 98.3, pulse of 66, respirations 16, blood pressure is 118/65, pulse oximetry of 91% on room air. HEENT: Normocephalic, atraumatic. Pupils are reactive. CVS: S1 and S2 normal. Regular rate and rhythm. ABDOMEN: Nontender nondistended. EXTREMITIES: Multiple digits are missing in the upper extremities. Currently, the left upper extremity middle finger with tenderness. Small amount of increased hyperpigmentation with decreased pulses in the extremities. The patient is due for an arteriogram today and continues to been in pain. LABORATORY VALUES: White count is down to 18.5, hemoglobin of 11.7, hematocrit 35.3. Chemistry; sodium 133, potassium 4.0, calcium of 10.3. Arteriogram is pending. ASSESSMENT: Ms. Jennifer Waldrop with: 1. Raynaud's phenomenon. 2. Chronic obstructive pulmonary disease. 3. Scleroderma. 4. Emphysema. 5. Ischemia of the right middle digit. PLAN: Continue with heparin drip. CT angiogram to be done today. Calcium channel blockers and heparin on board. The patient continues to be in pain and will go and increase the pain medication every 3 hours and also replace Zofran and alternate with Phenergan. MD MEDINA NoyolaJ/MODL /[id number]
[2019-07-02 11:42] LABS: BASOPHILS # (AUTO) 0.1 (0.0-0.1); BASOPHILS % 0.5 % (0.0-1.0); EOSINOPHILS # (AUTO) 0.1 (0.0-0.4); EOSINOPHILS % 0.5 % (0.0-6.0); HEMATOCRIT 38.8 % (34.2-44.1); HEMOGLOBIN 12.6 g/dL (12.0-16.0); LYMPHOCYTES # (AUTO) 1.7 (1.0-3.2); LYMPHOCYTES % 14.5 % (18.0-39.1); MEAN CORPUSCULAR HEMOGLOBIN 28.1 pg (28-32); MEAN CORPUSCULAR HGB CONC 32.5 g/dL (31-35); MEAN CORPUSCULAR VOLUME 86.6 fL (81-99); MONOCYTES # (AUTO) 0.9 (0.2-0.8); MONOCYTES % 7.4 % (4.4-11.3); NEUTROPHILS # (AUTO) 8.9 (2.1-6.9); NEUTROPHILS % 76.8 % (38.7-80.0); PLATELET COUNT 264 x10e3/uL (140-360); RED BLOOD COUNT 4.48 x10e6/uL (3.6-5.1); RED CELL DISTRIBUTION WIDTH 15.9 % (11.7-14.4)
--- NOTE | 2019-07-02 12:00 | NUR ---
PTT 59,NO CHANGE IN RATE,ANOTHER PTT TO BE DRAWN AT 1800
--- NOTE | 2019-07-02 12:40 | NUR ---
PT C/O PAIN MEDICATED.
--- NOTE | 2019-07-02 17:04 | NUR ---
PT UP IN BED ,NO FUTHER C/O PAIN.
[2019-07-02] MEDS: DEXTROSE 5% IV SCH (17:45)
[2019-07-02] MEDS: HEPARIN IV SCH (17:45)
[2019-07-02] MEDS ORDERED: HEPARIN 25,000 UNIT DRIP IV ONE (17:57)
--- NOTE | 2019-07-02 18:59 | NUR ---
ptt 64.9 no changes ptt to be drawn at 0800 07/02
--- NOTE | 2019-07-02 20:02 | NUR ---
Received change of shift report from AM nurse. Walking rounds completed.
[2019-07-03] VITALS (8 sets, daily range): BP systolic 104–157; BP diastolic 59–81
--- NOTE | 2019-07-03 | NUR ---
Patient AAOx3. Nitro bid placed on mid finger right hand. Patient received pain meds as ordered by MD. Heprin drip at7.5 with a daily lab.IV intact to left FA. Continue monitor.
[2019-07-03] MEDS: MORPHINE SULFATE INJ 4 MG/ML INJ 1ML IV PRN ×3 (00:18→13:29)
[2019-07-03] MEDS: PROMETHAZINE HCL 25 MG TAB PO PRN ×4 (00:18→21:27)
--- NOTE | 2019-07-03 03:37 | NUR ---
Patient resting quitly at this time. Continue monitor.
[2019-07-03] MEDS: NITROGLYCERIN 2% OINT 1 GM PKT TOP SCH ×4 (05:13→19:04)
--- NOTE | 2019-07-03 07:10 | NUR ---
PT UP IN BED ,PAIN LEVEL 3 ,NO DISTRESS NOTED
[2019-07-03 08:06] LABS: BASOPHILS # (AUTO) 0.1 (0.0-0.1); BASOPHILS % 0.6 % (0.0-1.0); EOSINOPHILS # (AUTO) 0.1 (0.0-0.4); EOSINOPHILS % 0.5 % (0.0-6.0); HEMATOCRIT 39.5 % (34.2-44.1); HEMOGLOBIN 12.8 g/dL (12.0-16.0); LYMPHOCYTES # (AUTO) 2.1 (1.0-3.2); LYMPHOCYTES % 22.3 % (18.0-39.1); MEAN CORPUSCULAR HEMOGLOBIN 28.1 pg (28-32); MEAN CORPUSCULAR HGB CONC 32.4 g/dL (31-35); MEAN CORPUSCULAR VOLUME 86.8 fL (81-99); MONOCYTES # (AUTO) 0.9 (0.2-0.8); MONOCYTES % 9.3 % (4.4-11.3); NEUTROPHILS # (AUTO) 6.3 (2.1-6.9); NEUTROPHILS % 67.1 % (38.7-80.0); PLATELET COUNT 247 x10e3/uL (140-360); RED BLOOD COUNT 4.55 x10e6/uL (3.6-5.1); RED CELL DISTRIBUTION WIDTH 16.1 % (11.7-14.4)
[2019-07-03] MEDS: NIFEDIPINE CR 30 MG TAB PO SCH (09:00)
--- NOTE | 2019-07-03 09:59 | Progress Note ---
DATE: SUBJECTIVE: A 64-year-old female, who came in with Raynaud's phenomenon with peripheral arterial disease. The patient had right index finger ischemia. The patient has a Nitro-Bid paste on it. The patient is currently feeling better. Nausea is better. Pain is better on pain medication and also on nausea medications. No chest pain. No shortness of breath. PHYSICAL EXAMINATION: VITAL SIGNS: Temperature is 98.8, pulse of 76, respirations of 16, blood pressure is 126/70, and pulse oximetry of 95%. HEENT: Normocephalic, atraumatic. Pupils reactive to light and accommodation. CVS: S1 and S2 normal. Regular rate and rhythm. ABDOMEN: Nontender and nondistended. EXTREMITIES: Multiple missing digits on the right hand, index finger is tender, but decreased tenderness seen since yesterday. ASSESSMENT: 1. Ischemia of right middle digit. 2. Scleroderma. 3. Raynaud's phenomenon. 4. History of chronic obstructive pulmonary disease. PLAN: 1. Continue heparin drip. CT of the angiogram was not done yet. Upper extremity ultrasound studies pending. Plan, continue with Nitro-Bid paste. 2. Continue with heparin. 3. Pain medication, pain management, and further recommendation per clinical course and also depending on arteriogram. MD BIB Noyola/MODL /[id number]
--- NOTE | 2019-07-03 10:24 | Progress Note ---
DATE: SUBJECTIVE: The patient continues to have severe pain to her right middle finger. She is in tears this morning explaining how bad the pain is. Denies any chest pain or shortness of breath. OBJECTIVE: VITAL SIGNS: Temperature 98.6, pulse 79, respiratory rate 22, blood pressure 157/80, and oxygen saturation 93% on room air. GENERAL: Alert and oriented x3. Resting on the chair. Endorses pain at this time. NECK: Supple. No JVD noted. LUNGS: Diminished breath sounds throughout. No wheezing. No rhonchi or crackles. CARDIOVASCULAR: Normal rate and rhythm. No murmurs, no gallops. ABDOMEN: Soft and nontender. EXTREMITIES: Lower extremity, no edema. Upper extremity, multiple finger amputation on the left hand. On right hand, missing the 2nd digit. The 3rd digit on the right hand has noted to be improving in color, however, still remains slightly pale and also some ulcerated areas and noticed especially around the nail bed. Pain continues upon touching. CARDIOVASCULAR MEDICATIONS: Nitroglycerin topical every 6 hours, nifedipine 30 mg p.o. daily, and heparin IV drip. LABORATORY DATA: WBC 9.38, hemoglobin 12.8, hematocrit 39.5, platelets 247. Sodium 133, potassium 4.0, BUN 12, creatinine 0.77, PTT 56.6. IMAGING STUDIES: Right upper extremity ultrasound negative for any artery stenosis. IMPRESSION: 1. Ischemia of the right middle finger. 2. Scleroderma. 3. Raynaud's syndrome. 4. Emphysema. RECOMMENDATION: Continue heparin drip. At this point, there is no indication to obtain a CT angiogram, given ultrasound of the right upper extremity was negative for any stenosis or occlusion. We will continue medical therapy. Continue topical nitroglycerin and also pain management per primary care. If pain continues and no improvement of symptoms, we will recommend consulting a hand surgeon. Also repeat chest x-ray on her finger, monitor any indication of infection under the nail bed. Dictated by Lindsey Corey, [employer] MD ELDON JoeV/BLAISEL /[id number]
--- NOTE | 2019-07-03 11:08 | Diagnostic Imaging Report ---
RIGHT HAND X-RAY - 3 VIEWS HISTORY: ^R/O INFECTION RT INDEX FINGER ^[id number] ^[id number] ^Y COMPARISON: None available. FINDINGS: Bones: No acute displaced fracture. Status post amputation of the second digit with adjacent mild soft tissue swelling. No cortical irregularity at the stump to suggest osteomyelitis. Joints: The joint spaces are well-maintained. Soft tissues: 3 mm radiopaque foreign body/loose body within the soft tissues adjacent to the dorsal aspect of the distal right first and third digits with surrounding moderate soft tissue swelling. IMPRESSION: Status post amputation of the second digit with adjacent mild soft tissue swelling. No cortical irregularity at the stump to suggest osteomyelitis. Signed by: Dr. Lisy Fernandes M.D. on 07/03/2019 11:05 AM
--- NOTE | 2019-07-03 17:24 | NUR ---
PT IN BED RESTING NO S/S DISCOMFORT
--- NOTE | 2019-07-03 20:00 | NUR ---
Received change of shift report from AM nurse. Walking rounds completed.
[2019-07-03] MEDS: HYDROMORPHONE 1MG/1ML INJ IV PRN (21:26)
[2019-07-04] VITALS (8 sets, daily range): BP systolic 109–141; BP diastolic 65–91
[2019-07-04] MEDS: HYDROMORPHONE 1MG/1ML INJ IV PRN ×6 (01:05→20:54)
[2019-07-04] MEDS: PROMETHAZINE HCL 25 MG TAB PO PRN ×5 (01:05→16:18)
--- NOTE | 2019-07-04 04:10 | NUR ---
Received change of shift report from JUDI ford Walking rounds completed. Addendum: 07/04/19 at 2770 by Mary Jane Chacon RN error
[2019-07-04] MEDS: CEFEPIME 1GM/NS 0.9% 50 ML 50 ML IV SCH ×2 (05:30→18:16)
[2019-07-04 05:48] LABS: BASOPHILS # (AUTO) 0.1 (0.0-0.1); BASOPHILS % 0.4 % (0.0-1.0); EOSINOPHILS % 0.3 % (0.0-6.0); HEMATOCRIT 35.4 % (34.2-44.1); HEMOGLOBIN 11.6 g/dL (12.0-16.0); LYMPHOCYTES # (AUTO) 1.8 (1.0-3.2); LYMPHOCYTES % 14.7 % (18.0-39.1); MEAN CORPUSCULAR HGB CONC 32.8 g/dL (31-35); MEAN CORPUSCULAR VOLUME 85.3 fL (81-99); MONOCYTES # (AUTO) 1.4 (0.2-0.8); MONOCYTES % 11.3 % (4.4-11.3); NEUTROPHILS # (AUTO) 8.7 (2.1-6.9); PLATELET COUNT 231 x10e3/uL (140-360); RED BLOOD COUNT 4.15 x10e6/uL (3.6-5.1); RED CELL DISTRIBUTION WIDTH 15.7 % (11.7-14.4)
[2019-07-04] MEDS: NITROGLYCERIN 2% OINT 1 GM PKT TOP SCH ×4 (06:00→18:16)
--- NOTE | 2019-07-04 06:56 | NUR ---
Received bedside shift report from off going nurse. Patient is resting in bed. No acute distress noted. Call light within reach. Bed in the lowest position.
--- NOTE | 2019-07-04 07:50 | NUR ---
PTT 42.6, heparin rate increased by 100 units or 1 mL. New rate is 8.5. Repeat PTT in 6 hours.
[2019-07-04] MEDS: NIFEDIPINE CR 30 MG TAB PO SCH (08:36)
[2019-07-04] MEDS: HEPARIN IV SCH ×2 (12:05→17:45)
[2019-07-04] MEDS: DEXTROSE 5% IV SCH ×2 (12:05→17:45)
[2019-07-04] MEDS ORDERED: POLYETHYLENE GLYCOL 3350 17 GM PACK PO PRN (12:45)
--- NOTE | 2019-07-04 14:55 | NUR ---
PTT is 50.8, no new changes.
--- NOTE | 2019-07-04 19:15 | NUR ---
patient receivewd awake, alert, lying quietly in bed. vss. no c/o pain noted. pm assessment complete. patient instructed to call for assistance when needed.
--- NOTE | 2019-07-04 19:33 | NUR ---
Bedside shift report given to oncoming nurse. Patient is resting in bed. No acute distress noted. Call light within reach. Bed in the lowest position.
[2019-07-04] MEDS: ONDANSETRON HCL INJ 2MG/ML 2ML 2 MG/ML VIAL IV PRN (20:54)
--- NOTE | 2019-07-04 20:54 | NUR ---
Patient medicated with dilaudid 1mg and zofran 4mg ivp for c/o right hand pain 8/ to the right ac 22 gauge saline lock. patient c/o burning at site when pain medication was given. no signs of redness/swelling noted. offered to place another iv but patient refuses. will continue to monitor.
--- NOTE | 2019-07-04 21:42 | NUR ---
ptt 41.7 heparin drip increaed by 100 units/hr. next ptt in 6 hrs per heparin protocol.
[2019-07-05] VITALS (9 sets, daily range): BP systolic 109–162; BP diastolic 57–81
[2019-07-05] MEDS: HYDROMORPHONE 1MG/1ML INJ IV PRN ×6 (01:06→23:08)
[2019-07-05] MEDS: ONDANSETRON HCL INJ 2MG/ML 2ML 2 MG/ML VIAL IV PRN ×6 (01:06→23:08)
--- NOTE | 2019-07-05 01:07 | NUR ---
patient medicated with dilaudid 1mg and zofran 4mg ivp for c/o right hand pain 7/10 at this time to the right ac 22 gauge iv without difficulty.
--- NOTE | 2019-07-05 04:19 | NUR ---
ptt 66.5 no changes made in rate and next ptt in 6 hrs.
[2019-07-05] MEDS ORDERED: SODIUM CHLORIDE 0.9% 250ML 250 ML ONE (05:30)
[2019-07-05] MEDS: CEFEPIME 1GM/NS 0.9% 50 ML 50 ML IV SCH ×2 (05:30→17:38)
--- NOTE | 2019-07-05 05:30 | NUR ---
patient medicated with dilaudid 1mg and zofran 4mg ivp for c/o right hand pain 7/10 at this time.
[2019-07-05] MEDS: NITROGLYCERIN 2% OINT 1 GM PKT TOP SCH ×4 (05:45→17:41)
[2019-07-05 05:56] LABS: BASOPHILS # (AUTO) 0.1 (0.0-0.1); BASOPHILS % 0.8 % (0.0-1.0); EOSINOPHILS # (AUTO) 0.1 (0.0-0.4); HEMATOCRIT 38.4 % (34.2-44.1); HEMOGLOBIN 12.6 g/dL (12.0-16.0); LYMPHOCYTES % 28.7 % (18.0-39.1); MEAN CORPUSCULAR HEMOGLOBIN 28.5 pg (28-32); MEAN CORPUSCULAR HGB CONC 32.8 g/dL (31-35); MEAN CORPUSCULAR VOLUME 86.9 fL (81-99); MONOCYTES # (AUTO) 0.8 (0.2-0.8); MONOCYTES % 11.2 % (4.4-11.3); NEUTROPHILS # (AUTO) 4.1 (2.1-6.9); NEUTROPHILS % 57.9 % (38.7-80.0); PLATELET COUNT 228 x10e3/uL (140-360); RED BLOOD COUNT 4.42 x10e6/uL (3.6-5.1); RED CELL DISTRIBUTION WIDTH 15.9 % (11.7-14.4)
--- NOTE | 2019-07-05 07:00 | NUR ---
BESIDE SHIFT REPORT RECEIVED FROM FACILITY SERVICE MANAGER RN. PT DENIES NEEDS AT THIS TIME.
[2019-07-05] MEDS: NIFEDIPINE CR 30 MG TAB PO SCH (09:00)
[2019-07-05] MEDS: DEXTROSE 5% IV SCH (17:38)
[2019-07-05] MEDS: HEPARIN IV SCH (17:38)
--- NOTE | 2019-07-05 19:12 | NUR ---
RECEIVED BEDSIDE SHIFT REPORT FROM PREVIOUS NURSE. CALL LIGHT WITHIN REACH. PATIENT SITTING IN BED. PATIENT IN NO DISTRESS.
--- NOTE | 2019-07-05 23:26 | NUR ---
PATIENT'S PTT CAME BACK 57.5 SO WILL NO CHANGE THE RATE OF THE HEPARIN.
[2019-07-06] VITALS (8 sets, daily range): BP systolic 102–122; BP diastolic 59–73
[2019-07-06] MEDS: NITROGLYCERIN 2% OINT 1 GM PKT TOP SCH ×5 (00:37→23:23)
--- NOTE | 2019-07-06 03:28 | NUR ---
DID HOURLY ROUNDING. PATIENT ASLEEP IN BED. CALL LIGHT WITHIN REACH.
[2019-07-06] MEDS: CEFEPIME 1GM/NS 0.9% 50 ML 50 ML IV SCH ×2 (05:25→17:33)
[2019-07-06] MEDS: ONDANSETRON HCL INJ 2MG/ML 2ML 2 MG/ML VIAL IV PRN ×4 (05:32→20:24)
[2019-07-06] MEDS: HYDROMORPHONE 1MG/1ML INJ IV PRN ×4 (05:32→20:24)
[2019-07-06 05:49] LABS: BASOPHILS # (AUTO) 0.1 (0.0-0.1); BASOPHILS % 0.7 % (0.0-1.0); EOSINOPHILS # (AUTO) 0.1 (0.0-0.4); EOSINOPHILS % 0.8 % (0.0-6.0); HEMATOCRIT 33.6 % (34.2-44.1); LYMPHOCYTES # (AUTO) 1.7 (1.0-3.2); LYMPHOCYTES % 22.7 % (18.0-39.1); MEAN CORPUSCULAR HEMOGLOBIN 27.6 pg (28-32); MEAN CORPUSCULAR HGB CONC 31.8 g/dL (31-35); MEAN CORPUSCULAR VOLUME 86.8 fL (81-99); MONOCYTES % 13.4 % (4.4-11.3); NEUTROPHILS # (AUTO) 4.8 (2.1-6.9); PLATELET COUNT 215 x10e3/uL (140-360); RED BLOOD COUNT 3.87 x10e6/uL (3.6-5.1); RED CELL DISTRIBUTION WIDTH 15.8 % (11.7-14.4)
[2019-07-06 06:25] LABS: HEMOGLOBIN 10.7 g/dL (12.0-16.0)
--- NOTE | 2019-07-06 06:34 | NUR ---
CALLED AND TALKED TO DR. ROWE ABOUT THE PATIENT'S HEMOGLOBIN BEING 10.7 TODAY AND IT WAS 12.6 YESTERDAY. HE DID NOT GIVE ANY ORDERS
--- NOTE | 2019-07-06 07:00 | NUR ---
BESIDE SHIFT REPORT RECEIVED FROM FITNESS PLAN COORDINATOR RN. PT DENIES NEEDS AT THIS TIME.
--- NOTE | 2019-07-06 07:06 | NUR ---
GAVE BEDSIDE SHIFT REPORT TO ONCOMING NURSE. CALL LIGHT WITHIN REACH. PATIENT IN BED.
[2019-07-06] MEDS: NIFEDIPINE CR 30 MG TAB PO SCH (08:59)
[2019-07-06] MEDS: DEXTROSE 5% IV SCH (17:35)
[2019-07-06] MEDS: HEPARIN IV SCH (17:35)
[2019-07-06] MEDS: ALPRAZOLAM 0.5 MG TAB PO PRN (18:48)
--- NOTE | 2019-07-06 18:52 | NUR ---
HEPARIN DRIP STOPPED AT THIS TIME.
--- NOTE | 2019-07-06 19:15 | NUR ---
RECEIVED REPORT FROM PREVIOUS NURSE. CALL LIGHT WITHIN REACH. PATIENT IN BED.
--- NOTE | 2019-07-06 20:56 | NUR ---
PATIENT COMPLAINING OF SHOOTING PAIN AFTER GIVEN DILAUDID AND WANTS SOMETHING ELSE FOR THE PAIN. CALLED AND TALKED TO DR. ROWE ABOUT THE PATIENT CONCERN AND HE ORDERED GABAPENTIN 100 MG TID.
[2019-07-06] MEDS: GABAPENTIN 100 MG CAP PO SCH (21:14)
--- NOTE | 2019-07-06 23:22 | NUR ---
PATIENT COMPLAINING OF PAIN THAT IS NOT GETTING BETTER AND WANTS A STRONGER PAIN MEDICATION. CALLED AND TALKED TO DR. ROWE AND HE ORDERED 2 MG Q3 DILAUDID.
[2019-07-06] MEDS: HYDROMORPHONE 2MG/ML 2 MG/ML ML IV PRN (23:27)
[2019-07-07] VITALS (9 sets, daily range): BP systolic 98–153; BP diastolic 55–93
--- NOTE | 2019-07-07 03:02 | NUR ---
DID HOURLY ROUNDING. PATIENT ASLEEP IN BED.
[2019-07-07] MEDS: ALPRAZOLAM 0.5 MG TAB PO PRN ×2 (04:10→21:25)
[2019-07-07] MEDS: ONDANSETRON HCL INJ 2MG/ML 2ML 2 MG/ML VIAL IV PRN ×2 (04:10→16:10)
[2019-07-07] MEDS: HYDROMORPHONE 2MG/ML 2 MG/ML ML IV PRN ×3 (04:10→16:10)
[2019-07-07] MEDS: CEFEPIME 1GM/NS 0.9% 50 ML 50 ML IV SCH ×2 (05:26→16:10)
[2019-07-07] MEDS: NITROGLYCERIN 2% OINT 1 GM PKT TOP SCH ×4 (05:40→21:25)
[2019-07-07 05:54] LABS: BASOPHILS # (AUTO) 0.1 (0.0-0.1); BASOPHILS % 0.7 % (0.0-1.0); EOSINOPHILS # (AUTO) 0.1 (0.0-0.4); EOSINOPHILS % 0.8 % (0.0-6.0); HEMOGLOBIN 11.4 g/dL (12.0-16.0); LYMPHOCYTES # (AUTO) 1.4 (1.0-3.2); LYMPHOCYTES % 19.8 % (18.0-39.1); MEAN CORPUSCULAR HEMOGLOBIN 27.7 pg (28-32); MEAN CORPUSCULAR HGB CONC 31.7 g/dL (31-35); MEAN CORPUSCULAR VOLUME 87.4 fL (81-99); MONOCYTES # (AUTO) 1.1 (0.2-0.8); MONOCYTES % 15.7 % (4.4-11.3); NEUTROPHILS # (AUTO) 4.5 (2.1-6.9); NEUTROPHILS % 62.7 % (38.7-80.0); PLATELET COUNT 228 x10e3/uL (140-360); RED BLOOD COUNT 4.12 x10e6/uL (3.6-5.1); RED CELL DISTRIBUTION WIDTH 15.9 % (11.7-14.4)
--- NOTE | 2019-07-07 07:00 | NUR ---
received bedside report. pt is alert sitting up in bed, no s/s of distress. pt c/o pain, dilaudid can be given in 15 min. call light within reach and instructed pt to call RN for help
--- NOTE | 2019-07-07 07:05 | NUR ---
GAVE BEDSIDE SHIFT REPORT TO ONCOMING NURSE. CALL LIGHT WITHIN REACH. PATIENT IN BED.
--- NOTE | 2019-07-07 08:58 | NUR ---
OR is on the unit to take patient for procedure
[2019-07-07] MEDS: GABAPENTIN 100 MG CAP PO SCH ×3 (09:00→21:24)
[2019-07-07] MEDS: NIFEDIPINE CR 30 MG TAB PO SCH (09:00)
[2019-07-07] MEDS ORDERED: MUPIROCIN 2% OINT 22 GM TUBE ONE (10:24)
[2019-07-07] MEDS ORDERED: BUPIVACAINE HCL 0.5% INJ 30 ML VIAL INJ ONE (10:24)
[2019-07-07] MEDS ORDERED: FENTANYL CITRATE/PF 100MCG/2 ML INJ ONE ×2 (11:40→18:34)
--- NOTE | 2019-07-07 12:55 | Operative Report ---
DATE OF PROCEDURE: 07/07/2019 SURGEON: Aron Johnston MD PREOPERATIVE DIAGNOSIS: Gangrene, right long finger. POSTOPERATIVE DIAGNOSIS: Gangrene, right long finger. PROCEDURE: Ray amputation, right long finger. ANESTHESIA: General. HISTORY: The patient is a 64-year-old female with severe ischemic necrosis of the right long finger to vaso-occlusive disorders. Risks, benefits, and alternatives of treatment were discussed with the patient and she is prepared to undergo the procedure as outlined. PROCEDURE IN DETAIL: The patient was marked preoperatively in the holding area. She was brought to the operating theater and after the induction of adequate general anesthesia, she was prepped and draped in a supine position and a time-out was performed. The right upper extremity was elevated for several minutes and then, the tourniquet inflated to a pressure of 250 mmHg. A racquet-type incision was marked out around the base of the right long finger. The incisions were made through the skin and subcutaneous tissue. Venous tributaries were controlled with the bipolar cautery. On the volar aspect of the finger, the radial and ulnar nerve vascular bundles were identified. The digital nerves are placed on stretch. They were transected sharply and the proximal ends were allowed to retract into the substance of the hand. The digital arteries are clamped and then transected and tied with 4-0 Vicryl sutures. At this point, the flexor tendon was transected and the tendon allowed to retract into the palm of the hand. Dorsally, the extensor tendon was transected and it was also allowed to retract. At this point, the collateral ligaments on both the radial and ulnar side of the MP joint are released from the base of the proximal phalanx and then the entire ray digit was removed and sent for permanent pathologic examination. The wound was irrigated with bacteriostatic saline and then the skin was closed with 4-0 nylon in an interrupted horizontal mattress fashion. A Marcaine field block was performed at the operative site. Tourniquet was deflated. The remaining fingers pinked up nicely and a sterile bulking conforming bandage was applied. The patient returned to recovery room in satisfactory condition and then admitted to the hospital for further care and treatment. Aron Johnston MD ER/MODL /[id number]
--- NOTE | 2019-07-07 13:50 | Consultation ---
DATE OF CONSULTATION: 07/06/[address] Chon Reese. Consult requested to Aron Johnston MD, Hand Surgery. CHIEF COMPLAINT: Right long finger ischemia. HISTORY OF PRESENT ILLNESS: The patient is a 64-year-old [id number] female with a very long history of vascular occlusive diseases. She is status post amputations of the index, middle, and ring fingers on the left hand as well as amputations of the right index finger of the right hand. She carries a diagnosis of Raynaud disease and scleroderma. She is maintained on vasodilators. Her most recent event includes admission on 06/30, for severe pain and ischemia of the right long finger. Vascular studies were obtained and they show that the entire digit has significant small vessel disease with almost no flow. The patient has had sympathectomies in the past as well as vascular bypasses to try to improve the circulation to the digits. She states that she has been in severe pain for the past several weeks and it is increasing in severity. She went to the emergency room on the and was admitted. She was started on heparin, but despite all of these maneuvers, the finger remains very painful and symptomatic. Consultation is now requested by Hand Surgery for evaluation. PAST MEDICAL HISTORY: As noted above. PAST SURGICAL HISTORY: As noted above. PERTINENT PHYSICAL EXAMINATION: The right long finger is pale. It is mottled in appearance. It is cool to the touch. There is no capillary refill. There is no radial pulse. There is no ulnar pulse on the right side. LABORATORY DATA: White blood cell count is 7. IMPRESSION: Severe ischemic changes of the right long finger due to vaso-occlusive disease. PLAN: I have discussed with the patient the functional limitations that would be placed on the right hand if she were to lose the long finger ray. She is aware of this. States that the pain is significant and she can end up with amputation anyway, so she feels that she would like to go ahead and have the ray amputated in the a.m. We will keep the patient n.p.o. over midnight. We will stop the heparin and we will consent the patient. Thank you for allowing me to participate in the care your patient. Aron Johnston MD ER/MODL /[id number]
--- NOTE | 2019-07-07 15:47 | NUR ---
Nutrition Intervention Note RD Recommendation(s) for Physician: -Ensure Enlive BID for added nutrition -Recommend liberalizing diet to regular diet The patient meets criteria for MODERATE protein-calorie malnutrition. Plan of Care: RD following, monitoring for tolerance and adequacy Nutrition reason for involvement: Length of stay RD Assessment (07/07/19) Pt is a 64 year old female admitted with Raynauds syndrome. Pt had her right long middle finger amputated today. Pt reports eating <50% of her meals for >1 month. It is recorded that pt consumed 50% of meals yesterday. No weight loss reported and pt mentioned she usually weighs 120 lbs. No N/V/D/C or chewing/swallowing issues at this time. Pt mentioned she usually drinks 1-2 meal replacement shakes. Recommend Ensure Enlive BID for added nutrition and informed RN. Will continue to monitor. Principal Problems/Diagnoses: Raynauds syndrome PMH: emphysema, scleroderma, Raynauds syndrome GI: last recorded BM 07/05 Skin: intact Labs: (06/30) Na 133, Ca 10.3 Meds: cefepime, zofran, Miralax Ht: 66 inches Wt: 119 lbs BMI: 19.3 kg/m2 IBW: 130 lbs Malnutrition Evaluation (07/07/19) The patient meets criteria for MODERATE protein-calorie malnutrition. Energy intake: <75% of estimated energy requirements for >1 month per pt report Weight loss: No weight loss reported Fat loss: pt showed some fat loss in tricep region Muscle loss: pt showed signs of moderate muscle depletion in clavicle region and mild depletion in temporal region Supporting Evidence: Fluid accumulation: no edema per MD note Functional Status: unable to evaluate Nutrition Prescription (Diet Order): cardiac Estimated Nutritional Needs: [id number] calories/day (25-35 kcal/kg CBW) 54-81g protein/day (1.0-1.5 g pro/kg CBW) Diet Adequacy: Not meeting calorie needs, Not meeting protein needs Tolerance: Tolerating PO Diet Education Needs Assessment: Diet education not indicated Nutrition Care Level: low Nutrition Diagnosis: Moderate protein kcal-malnutrition related to h/o inadequate energy intake related pt meeting <75% of estimated energy needs for > 1 month and moderate muscle depletion and mild fat depletion. Goal: Patient will meet 75-100% of estimated needs by follow up Progress: N/A Interventions: -General healthful diet, Commercial beverage, Commercial food, Recommended Modifications, Collaboration with other providers Monitoring/Evaluation: -Total energy intake, Total protein intake, Liquid supplement, Weight change Signed: Angie Womack RD, LD
--- NOTE | 2019-07-07 15:49 | NUR ---
mobile development manager recommends Ensure Enlive BID with meals
[2019-07-07] MEDS ORDERED: PROPOFOL IV EMULSION 10 MG/ML 20 ML VIAL ONE (18:34)
[2019-07-07] MEDS ORDERED: KETOROLAC TROMETHAMINE 30 MG/ML VIAL ONE (18:34)
[2019-07-07] MEDS ORDERED: SEVOFLURANE INHAL SOLN 250 ML PEN BTL ONE (18:34)
[2019-07-07] MEDS ORDERED: ONDANSETRON HCL INJ 2MG/ML 2ML 2 MG/ML VIAL ONE (18:34)
[2019-07-07] MEDS ORDERED: MIDAZOLAM HCL 2 MG/2 ML VIAL ONE (18:34)
[2019-07-07] MEDS ORDERED: LIDOCAINE HCL 2% LOCAL INJ 5 ML SDV VIAL INJ ONE (18:34)
[2019-07-07] MEDS ORDERED: DEXAMETHASONE SOD PHOS INJ 4 MG/ML VIAL ONE (18:34)
[2019-07-08] MEDS: HYDROMORPHONE 2MG/ML 2 MG/ML ML IV PRN ×3 (00:27→10:20)
[2019-07-08 04:47] VITALS: BP 153/79
[2019-07-08] MEDS: CEFEPIME 1GM/NS 0.9% 50 ML 50 ML IV SCH (04:50)
[2019-07-08] MEDS: NITROGLYCERIN 2% OINT 1 GM PKT TOP SCH (04:51)
[2019-07-08 07:59] VITALS: BP 144/67
[2019-07-08 08:00] VITALS: BP 144/67
--- NOTE | 2019-07-08 09:00 | NUR ---
Dr. Johnston cleared the patient for discharge and left prescription. left instructions for pt to keep dressing clean and dry and to follow up in office next week
[2019-07-08] MEDS: GABAPENTIN 100 MG CAP PO SCH (09:27)
[2019-07-08] MEDS: NIFEDIPINE CR 30 MG TAB PO SCH (09:28)
[2019-07-08] MEDS: ALPRAZOLAM 0.5 MG TAB PO PRN (09:30)
--- NOTE | 2019-07-08 09:34 | NUR ---
informed Dr. Reese that Dr. Johnston has cleared the patient for discharge. waiting for orders
--- NOTE | 2019-07-08 09:41 | NUR ---
Dr. Reese approved patient to be discharged
--- NOTE | 2019-07-10 12:11 | Discharge Summary ---
DISCHARGE DIAGNOSES: 1. Ischemic right second finger. 2. Raynaud phenomenon. 3. Tobacco abuser. 4. Hypertension. HOSPITAL PROCEDURES: 1. The patient did have an amputation of the right second finger by Dr. Johnston, no complications. 2. Cellulitis of the right second finger. HISTORY OF PRESENT ILLNESS AND HOSPITAL COURSE: See hospital chart for full details. The patient is a lady with continuous smoking history despite having Raynaud phenomenon with history of prior amputations of the fingers on both hands, who presented with an ischemic right second finger as well as possible cellulitis. She was brought in and placed on IV antibiotics, given IV heparin and topical nitroglycerin. She had arterial studies done that showed no stenotic areas of the large vessels, and she was seen by Dr. Johnston, hand surgeon, who confirmed that the finger was the ischemic, the patient was adamant that she wanted to have it to be amputated, which was performed without complications with significant improvement in her overall pain, and then postoperatively the next day, the patient was able to be discharged home in good condition and will follow up with me in 1 to 2 weeks as well as Dr. Johnston. The patient states she will quit smoking at this time despite my previous multiple lectures and she will continue with her home medications. Please see hospital chart for full details. MD ABRAM Alfred/SHAY /[id number]
== END 2019-07-08 10:42 | disposition home or self-care (01) | DRG 256 ==
LOC: ER 12:24 → ERHOLD 12:53 → MED/SURG3 14:58
PROVIDERS: ADMIT Internal Medicine; ATTEND Internal Medicine
PROC: 0X6Q0Z0 Detachment at Right Middle Finger, Complete, Open Approach (ICD-10-PCS; principal; 2019-07-07 10:22)
DX: I99.8 Other disorder of circulatory system (principal); E44.1 Mild protein-calorie malnutrition; Z68.1 Body mass index [BMI] 19.9 or less, adult; I73.00 Raynaud's syndrome without gangrene; L03.011 Cellulitis of right finger; M34.9 Systemic sclerosis, unspecified; J43.9 Emphysema, unspecified; I10 Essential (primary) hypertension; F41.9 Anxiety disorder, unspecified; F17.200 Nicotine dependence, unspecified, uncomplicated; Z91.19 Patient's noncompliance with other medical treatment and regimen
CPT/HCPCS: 36415; 80053; 82550; 82553; 82948; 83605; 84484; 85025; 85610; 85730; 87040; 87635; 88304; 88305; 88311; 88313; 93930; 99284; J0692; J1100; J1170; J1644; J1885; J2001; J2250; J2270; J2405; J3010; J7050

== ENCOUNTER 2019-09-06 19:35 | Inpatient (IN) | payer MEDICARE, OTHER ==
[~2019-09-06] VITALS: Ht 167.6 cm; Wt 54.4 kg
[2019-09-06] MEDS ORDERED: CEFEPIME 1GM/NS 0.9% 50 ML 50 ML IV SCH (21:00)
--- NOTE | 2019-09-06 21:16 | Emergency Department Note ---
History of Present Illnes History of Present Illness Chief Complaint: General Medicine Complaints History of Present Illness This is a 64 year old female arrives to the ED with right hand pain after recent amputation. Patient with history of Raynaud's disease requiring multiple finger amputations. Onset (how long ago): day(s) Severity: mild Duration (how long): day(s) Timing of current episode: constant Progression: worsening Context: Reports recent surgery Relieving factors: none Exacerbating factors: none Past Medical/Family History Physician Review I have reviewed the patient's past medical and family history. Any updates have been documented here. Past Medical History Recent Fever: No Clinical Suspicion of Infectio: No New/Unexplained Change in Ment: No Past Medical History: COPD Other Medical History: SCLERODERMA, REYNAULD'S, OCCASSIONAL SMOKER (JUST WANTED) Past Surgical History: Cholecysctectomy Other Surgery: AMPUTATION 3 FINGERS ON L. HAND, R. INDEX FINGER, Family History Family history of heart diseas: No Other Last Tetanus: 2016 Review of Systems Review of Systems Constitutional: Reports no symptoms EENTM: Reports no symptoms Cardiovascular: Reports no symptoms Respiratory: Reports no symptoms Gastrointestinal: Reports no symptoms Genitourinary: Reports no symptoms Musculoskeletal: Reports as per HPI, Reports joint pain, Reports joint swelling Integumentary: Reports no symptoms Neurological: Reports no symptoms Psychological: Reports no symptoms Endocrine: Reports no symptoms Hematological/Lymphatic: Reports no symptoms Physical Exam Related Data Allergies: Coded Allergies: codeine (Verified Adverse Reaction, Unknown, nausea/vomiting, 07/01/19) Triage Vital Signs Vital Signs Date Time Temp Pulse Resp B/P (MAP) Pulse Ox O2 Delivery O2 Flow Rate FiO2 09/06/19 20:21 98.0 77 18 195/103 97 Vital signs reviewed: Yes Physical Exam CONSTITUTIONAL Constitutional: Present well-developed, Present well-nourished HENT HENT: Present normocephalic, Present atraumatic, Present oropharynx clear/m oist, Present nose normal HENT L/R: Present left ext ear normal, Present right ext ear normal EYES Eyes: Reports PERRL, Reports conjunctivae normal NECK Neck: Present ROM normal PULMONARY Pulmonary: Present effort normal, Present breath sounds normal CARDIOVASCULAR Cardiovascular: Present regular rhythm, Present heart sounds normal, Present capillary refill normal, Present normal rate GASTROINTESTINAL Abdominal: Present soft, Present nontender, Present bowel sounds normal GENITOURINARY Genitourinary: Present exam deferred SKIN Skin: Present warm, Present dry, Present other (discharge noted from amputation site of right middle index finger superimposed cellulitis) MUSCULOSKELETAL Musculoskeletal: Present ROM normal NEUROLOGICAL Neurological: Present alert, Present oriented x 3, Present no gross motor or sensory deficits PSYCHOLOGICAL Psychological: Present mood/affect normal, Present judgement normal Results Laboratory Lab results reviewed: Yes Assessment & Plan Medical Decision Making MDM 64-year-old female arrived to the ED with drainage and cellulitis over her amputation site several months ago. Patient's x-ray was concerning for some erosion which may be consistent with osteomyelitis. Patient is an active smoker, has extensive ischemia in her distal extremity secondary to Raynauds. Case discussed with Dr. Johnston who accepted consult on patient admitted for IV antibiotics. Assessment & Plan Final Impression: (1) Raynauds syndrome (2) Cellulitis of hand Last Vital Signs Date Time Temp Pulse Resp B/P (MAP) Pulse Ox O2 Delivery O2 Flow Rate FiO2 09/06/19 20:21 98.0 77 18 195/103 97 Home Meds Reported Medications Doxycycline Hyclate (DOXYCYCLINE HYCLATE) 100 Mg Capsule, 100 MG PO Q12H, CAP 09/10/19 Tadalafil (CIALIS) 10 Mg Tablet, 10 MG PO DAILY 09/07/19 Polyethylene Glycol 3350 (MIRALAX) 17 Gm Powd.pack, 1 EACH PO DAILY 12/24/17 Ranitidine Hcl (ZANTAC) 300 Mg Tablet, 300 MG PO DAILY PRN for INDIGESTION 12/24/17 [Vitamin D3] No Conflict Check, PO DAILY 10/29/16 Omeprazole/Sodium Bicarbonate (ZEGERID 20 MG CAPSULE) 1 Each Capsule, 20 MG PO Q12H 10/29/16 Discontinued Reported Medications Tadalafil (CIALIS) 20 Mg Tablet, 10 MG PO DAILY 12/24/17 Citalopram Hydrobromide (CITALOPRAM HBR) 10 Mg Tablet, 10 MG PO DAILY 10/29/16 CURLY QUINTANA DO Sep 06, 2019 21:16
--- NOTE | 2019-09-06 21:24 | Diagnostic Imaging Report ---
HAND 3+ VIEWS RIGHT - 3 views HISTORY: Pain. COMPARISON: 07/03/2019 FINDINGS: Bones: No fracture. Unchanged amputation of the second digit through the metacarpal bone. New amputation of the third digit at the MCP joint. Questionable subtle osseous erosion of the third metacarpal head. Joints: No new joint degenerative change. Soft tissues: Unchanged small soft tissue ossific densities. Nonspecific soft tissue swelling about the third digit. IMPRESSION: Interval amputation of the third digit at the MCP joint. Questionable erosion of the third metacarpal head. Further evaluation with follow-up radiographs versus MRI is suggested. Signed by: Ej Clark MD on 09/06/2019 9:21 PM
[2019-09-06 22:42] LABS: BASOPHILS # (AUTO) 0.1 (0.0-0.1); BASOPHILS % 1.2 % (0.0-1.0); EOSINOPHILS # (AUTO) 0.4 (0.0-0.4); HEMATOCRIT 40.5 % (34.2-44.1); HEMOGLOBIN 13.1 g/dL (12.0-16.0); LYMPHOCYTES # (AUTO) 2.7 (1.0-3.2); LYMPHOCYTES % 31.5 % (18.0-39.1); MEAN CORPUSCULAR HEMOGLOBIN 27.6 pg (28-32); MEAN CORPUSCULAR HGB CONC 32.3 g/dL (31-35); MEAN CORPUSCULAR VOLUME 85.3 fL (81-99); MONOCYTES # (AUTO) 0.9 (0.2-0.8); MONOCYTES % 10.3 % (4.4-11.3); NEUTROPHILS # (AUTO) 4.6 (2.1-6.9); NEUTROPHILS % 52.7 % (38.7-80.0); PLATELET COUNT 282 x10e3/uL (140-360); RED BLOOD COUNT 4.75 x10e6/uL (3.6-5.1); RED CELL DISTRIBUTION WIDTH 17.8 % (11.7-14.4)
[2019-09-06] MEDS ORDERED: KETOROLAC TROMETHAMINE 30 MG/ML VIAL IV STA (22:54)
[2019-09-06 23:01] LABS: ALANINE AMINOTRANSFERASE 20 IU/L (0-55); ALBUMIN 3.9 g/dL (3.5-5.0); ALBUMIN/GLOBULIN RATIO 1.2 (0.8-2.0); ALKALINE PHOSPHATASE 157 IU/L (40-150); ANION GAP 12.3 mmol/L (8-16); BLOOD UREA NITROGEN 6 mg/dL (7-26); BUN/CREATININE RATIO 8 (6-25); CARBON DIOXIDE 20 mmol/L (22-29); CHLORIDE 104 mmol/L (98-107); CREATININE, SERUM 0.71 mg/dL (0.57-1.11); EST GLOMERULAR FILTRATION RATE > 60 ML/MIN (60-); GLUCOSE 83 mg/dL (74-118); POTASSIUM 3.3 mmol/L (3.5-5.1); SODIUM 133 mmol/L (136-145)
[2019-09-06 23:37] VITALS: BP 168/93
[2019-09-06 23:41] VITALS: BP 168/93
[2019-09-07] VITALS (9 sets, daily range): BP systolic 132–168; BP diastolic 69–93
[2019-09-07] MEDS ORDERED: CIALIS10 MG PO (00:11)
[2019-09-07] MEDS ORDERED: VANCOMYCIN 1GM/NS 250 ML 250 ML IV STA (02:05)
--- NOTE | 2019-09-07 02:05 | NUR ---
Patient's EMAR showing one time dose of Vancomycin which was not administered per ER nurse. Was unable to pull medication because pyxis profile was not showing the medication. Pharmacy called and they entered the Medication into the profile to be administered once as ordered. Patient has no allergies to Vancomycin and medication will be administered as ordered x 1 at this time.
[2019-09-07] MEDS: VANCOMYCIN 1GM/NS 250 ML 250 ML IV STA ×2 (02:11→02:12)
--- NOTE | 2019-09-07 04:55 | NUR ---
Physician consultation Called Dr. Johnston's office to notify them of the Routine consult. Message left with answering service.
--- NOTE | 2019-09-07 04:56 | NUR ---
Physician consultation Called Dr. Carmona's office to notify them of the Routine consult . Spoke to the answering service about the consult.
[2019-09-07 06:01] LABS: BASOPHILS # (AUTO) 0.1 (0.0-0.1); EOSINOPHILS # (AUTO) 0.4 (0.0-0.4); EOSINOPHILS % 6.1 % (0.0-6.0); HEMATOCRIT 39.7 % (34.2-44.1); HEMOGLOBIN 12.7 g/dL (12.0-16.0); LYMPHOCYTES # (AUTO) 2.1 (1.0-3.2); LYMPHOCYTES % 33.9 % (18.0-39.1); MEAN CORPUSCULAR HEMOGLOBIN 27.5 pg (28-32); MEAN CORPUSCULAR VOLUME 85.9 fL (81-99); MONOCYTES # (AUTO) 0.7 (0.2-0.8); MONOCYTES % 11.4 % (4.4-11.3); NEUTROPHILS % 47.3 % (38.7-80.0); PLATELET COUNT 267 x10e3/uL (140-360); RED BLOOD COUNT 4.62 x10e6/uL (3.6-5.1); RED CELL DISTRIBUTION WIDTH 17.8 % (11.7-14.4)
[2019-09-07 06:30] LABS: ALANINE AMINOTRANSFERASE 19 IU/L (0-55); ALBUMIN 3.3 g/dL (3.5-5.0); ALBUMIN/GLOBULIN RATIO 1.2 (0.8-2.0); ALKALINE PHOSPHATASE 141 IU/L (40-150); ANION GAP 10.6 mmol/L (8-16); BLOOD UREA NITROGEN 6 mg/dL (7-26); BUN/CREATININE RATIO 8 (6-25); CALCIUM 9.2 mg/dL (8.4-10.2); CARBON DIOXIDE 21 mmol/L (22-29); CHLORIDE 108 mmol/L (98-107); CREATININE, SERUM 0.71 mg/dL (0.57-1.11); EST GLOMERULAR FILTRATION RATE > 60 ML/MIN (60-); GLUCOSE 78 mg/dL (74-118); POTASSIUM 3.6 mmol/L (3.5-5.1); SODIUM 136 mmol/L (136-145)
--- NOTE | 2019-09-07 06:56 | NUR ---
RECEIVED BEDSIDE SHIFT REPORT FROM OFF GOING NURSE. PATIENT IS RESTING IN BED. NO ACUTE DISTRESS NOTED. CALL LIGHT WITHIN REACH. BED IN THE LOWEST POSITION.
[2019-09-07] MEDS ORDERED: IBUPROFEN 600 MG TAB PO PRN (08:00)
[2019-09-07] MEDS ORDERED: ACETAMINOPHEN 325 MG TAB PO PRN (08:00)
[2019-09-07] MEDS: AMLODIPINE BESYLATE 5 MG TAB PO SCH (08:00)
[2019-09-07] MEDS ORDERED: PANTOPRAZOLE 40 MG 10ML VIAL IV SCH (09:00)
[2019-09-07] MEDS: ONDANSETRON HCL 4 MG ORAL DISINTEGRATING TAB PO PRN ×2 (12:20→18:36)
[2019-09-07] MEDS: HYDROCODONE/APAP 10MG-325MG TAB PO PRN ×3 (12:20→22:46)
--- NOTE | 2019-09-07 15:56 | NUR ---
Nutrition Screen Note RD Recommendation for Physician: - Continue current diet as ordered - If PO intake <50% of meals, offer Ensure Enlive Plan of Care: RD following, monitoring for tolerance and adequacy Nutrition reason for involvement: Nutrition Risk Trigger (MST 2) Primary Diagnose(s): cellulitis of hand PMH: emphysema, scleroderma, Raynauds syndrome Ht: 66 in Wt:119 lb BMI: 19.3 kg/m2 IBW:[address] Assessment: (09/07/19) Chart reviewed. Labs and meds reviewed. Pt is a 64 year old female admitted with cellulitis of her hand. Pt reports she typically eats 1 meal/day and drinks 2 nutrition supplements/day. Pt mentioned she ate almost all of her breakfast this morning. It is recorded that pt consumed 75% of breakfast. No weight loss reported and pt mentioned she usually weighs 122 lbs. Offered pt a nutrition supplement during admission, but pt declined. Will continue to monitor. Current Diet: cardiac Malnutrition Evaluation (09/07/19) The patient does not meet criteria for a specified degree of malnutrition at this time. Will re-evaluate at follow-up as appropriate. Energy intake: Adequate PO intake reported at this time Weight loss: No weight loss reported Fat loss: pt showed mild fat loss in tricep region Muscle loss: pt showed signs of moderate muscle depletion in clavicle region and mild depletion in temporal region Supporting Evidence: Fluid accumulation: unable to evaluate Functional Status: unable to evaluate Diet Education Needs Assessment: RD is available for diet education as needed Nutrition Care Level: low Signed: Angie Womack RD, SADIA
[2019-09-07] MEDS: PANTOPRAZOLE SOD 40 MG TABEC PO SCH (16:00)
--- NOTE | 2019-09-07 17:39 | NUR ---
PATIENT TRANSFERRED TO ROOM 206. REPORT GIVEN TO TAKING NURSE. PATIENT IS IN STABLE CONDITION. ALL PERSONAL ITEMS TAKEN TO ROOM.
--- NOTE | 2019-09-07 19:22 | NUR ---
PATIENT IS IN STABLE CONDITION WITH NO S/S OF RESPIRATORY DISTRESS. NO PAIN VOICED. TELEMETRY APPLIED. PATIENT REMINDED SHE WILL BE NPO AFTER MIDNIGHT. CALL LIGHT IS WITHIN REACH, PATIENT INSTRUCTED TO CALL FOR ASSISTANCE NEEDED. BEDSIDE REPORT GIVEN TO ONCOMING NURSE. REPORT GIVEN TO ONCOMING NURSE.
[2019-09-07] MEDS: CEFTRIAXONE SOD 1 GM/NS 50 ML 50 ML IV SCH (22:00)
--- NOTE | 2019-09-07 22:55 | Consultation ---
DATE OF CONSULTATION: REASON FOR CONSULTATION: Infection of the hand. HISTORY OF PRESENT ILLNESS: This patient is very pleasant but unfortunate 64-year-old, who has a history of severe scleroderma. She lost some of her fingers. She recently had amputation of the index finger and middle finger on the right, comes in with some drainage from the site of amputation. The patient is being admitted. She had an x-ray done, which showed amputation of the 3rd digit MCP joint with some erosion. The patient has had quite redness yesterday, but today she is doing better. She is going for debridement tomorrow. PHYSICAL EXAMINATION: GENERAL: She is currently alert, oriented. VITAL SIGNS: Stable. Currently afebrile. HEENT: She is not icteric. NECK: Supple. CHEST: Clear. HEART: S1 and S2. ABDOMEN: Soft. LABORATORY DATA: Reviewed. Chart reviewed. IMPRESSION: 1. Status post amputation, concerned about underlying osteomyelitis. She is currently on cefepime. There are really no bacteria at present time. I would suggest to give her Rocephin and vancomycin, get a PICC line, arrange for 2 weeks of IV antibiotic, obtain MRI of the hand, but she is going for surgery tomorrow, can probably proceed with obtaining a culture and biopsy to modify after. We will discuss with Hand Surgery. 2. Scleroderma. 3. We will follow. MD BETHANY Blevins/SHAY /[id number]
[2019-09-08] VITALS (8 sets, daily range): BP systolic 108–157; BP diastolic 60–96
[2019-09-08] MEDS: VANCOMYCIN 1GM/NS 250 ML 250 ML IV SCH (02:00)
[2019-09-08] MEDS: PANTOPRAZOLE SOD 40 MG TABEC PO SCH ×2 (07:30→16:08)
--- NOTE | 2019-09-08 07:40 | NUR ---
PATIENT OFF THE UNIT TO OR FOR PROCEDURE TODAY. PRIOR TO LEAVING THE UNIT, PATIENT IN STABLE CONDITION WITH NO S/S OF RESPIRATORY DISTRESS. NO PAIN VOICED. TELEMETRY APPLIED.
[2019-09-08] MEDS ORDERED: PROMETHAZINE HCL (IM) 25 MG/ML VIAL ONE (08:04)
[2019-09-08] MEDS ORDERED: BACITRACIN 50,000 UNIT VIAL ONE (08:15)
[2019-09-08] MEDS ORDERED: BUPIVACAINE HCL 0.5% INJ 30 ML VIAL INJ ONE (08:15)
[2019-09-08] MEDS ORDERED: MUPIROCIN 2% OINT 22 GM TUBE ONE (08:15)
[2019-09-08] MEDS ORDERED: FENTANYL CITRATE/PF 100MCG/2 ML INJ ONE ×2 (09:25→15:15)
[2019-09-08] MEDS ORDERED: HYDROMORPHONE 1MG/1ML INJ ONE (09:38)
[2019-09-08] MEDS: AMLODIPINE BESYLATE 5 MG TAB PO SCH (10:42)
[2019-09-08] MEDS: ONDANSETRON HCL 4 MG ORAL DISINTEGRATING TAB PO PRN ×2 (12:06→20:42)
[2019-09-08] MEDS: HYDROCODONE/APAP 10MG-325MG TAB PO PRN ×2 (12:06→20:42)
--- NOTE | 2019-09-08 12:49 | Operative Report ---
DATE OF PROCEDURE: 09/08/2019 SURGEON: Aron Johnston MD PREOPERATIVE DIAGNOSIS: Wound dehiscence, right hand. POSTOPERATIVE DIAGNOSIS: Wound dehiscence, right hand. PROCEDURE: Debridement and secondary to closure of wound dehiscence, right hand. ANESTHESIA: General. HISTORY: The patient is a 64-year-old female, right-hand dominant, who has severe vasculitis. She underwent a ray amputation of the right index finger approximately two months ago. She returned to the emergency room on September 05 with erythema of the surgical site and obvious wound dehiscence. She was admitted and started on intravenous antibiotics and Hand Surgery was consulted yesterday. The plan is to take it to the OR, debride the wound and perform a secondary closure. The risks, benefits, and alternatives of surgery were discussed with the patient. She is prepared to undergo the procedure as outlined. PROCEDURE IN DETAIL: The patient was marked preoperatively in the holding area. She was brought to the operating theater and after the induction of adequate general anesthesia, she was prepped and draped in a supine position. A time-out was performed. The wound and its devitalized edges were marked out with a 3 mm margin. The incision was then made through the skin and subcutaneous tissue. Bleeding was controlled with bipolar cautery. The skin was undermined in the deep subcutaneous plane and then the wound was irrigated with antibiotic containing solution. Cultures had been taken prior to the irrigation for aerobic and anaerobic studies. The wound was then closed with 4-0 nylon in interrupted horizontal mattress fashion. A Marcaine field block was performed at the operative site. Bactroban ointment, Xeroform gauze, and a sterile dressing were applied. The estimated blood loss of procedure was minimal. The patient returned to recovery room in satisfactory condition and readmitted to our hospital bed for further care and treatment. Aron Johnston MD ER/MODL /[id number]
[2019-09-08] MEDS: LORAZEPAM INJ 2 MG/ML VIAL IV PRN (13:46)
[2019-09-08] MEDS ORDERED: MIDAZOLAM HCL 2 MG/2 ML VIAL ONE (15:15)
--- NOTE | 2019-09-08 17:50 | Progress Note ---
DATE: SUBJECTIVE: The patient is seen and evaluated. Discussed with the patient. Please refer to chart for more information. Discussed with Dr. Carmona in details. REVIEW OF SYSTEMS: Complaining of pain at her right hand at the surgical site. PHYSICAL EXAMINATION: VITAL SIGNS: Temperature 97.9, pulse is 72, respiration 19, and blood pressure 131/96. GENERAL: Alert and oriented. No acute distress. CV: S1 and S2. CHEST: Equal expansion. Clear to auscultation. No acute distress. ABDOMEN: Soft and nontender. No distention. HEENT: Moist. No pallor. No JVD. EXTREMITIES: Right hand dressed, surgical site. The patient also has old amputation of the fingers on her left hand as well. MEDICATIONS: The patient remains on vancomycin IV and Rocephin. LABORATORY STUDIES: White count of 6.25 and platelet 267. Creatinine 0.71. Serology; coronavirus PCR pending. MICROBIOLOGY: Blood culture negative. Wound culture pending. IMAGING: No new radiology studies available. ASSESSMENT AND PLAN: 1. Status post amputation of fingers on the right hand. 2. Status post debridement and secondary closure of right hand amputation, dehisced area. 3. Pain. 4. History of Raynaud disease. 5. Hypertension. 6. Gastroesophageal reflux disease. Continue with antibiotics. Monitor the patient clinically and follow with the labs. Follow with vancomycin level. Please refer to chart for more information. Dictated by Mike Kelly PA-C (Al) Chelsea Carmona MD /MODL /[id number]
--- NOTE | 2019-09-08 19:10 | NUR ---
PATIENT IS IN STABLE CONDITION WITH NO S/S OF RESPIRATORY DISTRESS. NO PAIN VOICED. TELEMETRY APPLIED. RIGHT HAND WRAPPED IN HEIDY BANDAGE S/P PROCEDURE TODAY. CALL LIGHT IS WITHIN REACH, PATIENT INSTRUCTED TO CALL FOR ASSISTANCE NEEDED. BED ALARM APPLIED. REPORT GIVEN TO ONCOMING NURSE.
--- NOTE | 2019-09-08 19:10 | NUR ---
Received patient awake, not in distress, call light within easy reach, advised to call anytime when needed, will continue to monitor patient
[2019-09-08] MEDS ORDERED: PROPOFOL IV EMULSION 10 MG/ML 20 ML VIAL ONE (20:16)
[2019-09-08] MEDS ORDERED: LIDOCAINE HCL 2% LOCAL INJ 5 ML SDV VIAL INJ ONE (20:16)
[2019-09-08] MEDS ORDERED: ONDANSETRON HCL INJ 2MG/ML 2ML 2 MG/ML VIAL ONE (20:16)
[2019-09-08] MEDS ORDERED: SEVOFLURANE INHAL SOLN 250 ML PEN BTL ONE (20:16)
[2019-09-08] MEDS: CEFTRIAXONE SOD 1 GM/NS 50 ML 50 ML IV SCH (20:42)
[2019-09-09] VITALS (8 sets, daily range): BP systolic 102–131; BP diastolic 56–68
[2019-09-09] MEDS: HYDROMORPHONE 1MG/1ML INJ IV PRN ×3 (00:02→16:58)
[2019-09-09] MEDS: VANCOMYCIN 1GM/NS 250 ML 250 ML IV SCH (01:44)
[2019-09-09] MEDS ORDERED: KETOROLAC TROMETHAMINE 30 MG/ML VIAL IV STA (04:33)
[2019-09-09] MEDS: PANTOPRAZOLE SOD 40 MG TABEC PO SCH ×2 (08:45→16:58)
[2019-09-09] MEDS: LORAZEPAM INJ 2 MG/ML VIAL IV PRN (08:55)
[2019-09-09] MEDS: AMLODIPINE BESYLATE 5 MG TAB PO SCH (09:00)
--- NOTE | 2019-09-09 09:43 | Progress Note ---
DATE: SUBJECTIVE: The patient is seen and evaluated. Available labs and notes reviewed. Discussed with Dr. Carmona. Please refer to chart for more information. REVIEW OF SYSTEMS: Pain is better controlled today. No nausea, vomiting, fever, chills, chest pain, shortness of breath, headache, rash, or dysuria. PHYSICAL EXAMINATION: VITAL SIGNS: Temperature 97.2, pulse 72, respirations 16, and blood pressure 118/64. GENERAL: Alert and oriented. No acute distress. CV: S1 and S2. CHEST: Equal expansion. Clear to auscultation. No acute distress. ABDOMEN: Soft and nontender. No distention. HEENT: Moist. No pallor. No JVD. EXTREMITIES: Right has surgical site dressed with surgical dressing. MEDICATIONS: Reviewed and from ID point of view, the patient is on vancomycin IV and Rocephin. LABORATORY STUDIES: White count 6.25. Creatinine 0.71. Serology; coronavirus PCR pending. MICROBIOLOGY: Wound culture negative 24 hours from 09/08/2019. Blood culture negative from 09/06/2019. ASSESSMENT AND PLAN: 1. Status post amputation of right hand digits. 2. Status post debridement and secondary closure of the right hand amputation dehisced site. 3. Hypertension. 4. History of Raynaud disease. 5. Pain, better controlled. 6. Gastroesophageal reflux disease. 7. Continue with antibiotics. Discussed with staff. We will follow up with vancomycin trough. Please refer to chart for more information. Dictated by Mike Kelly PA-C (Al) Chelsea Carmona MD /MODL /[id number]
[2019-09-09] MEDS: HYDROCODONE/APAP 10MG-325MG TAB PO PRN ×2 (11:53→21:35)
[2019-09-09] MEDS: ONDANSETRON HCL 4 MG ORAL DISINTEGRATING TAB PO PRN (13:01)
--- NOTE | 2019-09-09 19:37 | NUR ---
Patient received sitting up in bed. AAO x 3. Patient had no complaints of pain. Respirations even and non-labored. Safety measures in place. Patient instructed to call for assistance when needed. Call light within reach.
[2019-09-09] MEDS: CEFTRIAXONE SOD 1 GM/NS 50 ML 50 ML IV SCH (21:27)
[2019-09-10] VITALS: BP 130/70
--- NOTE | 2019-09-10 01:54 | NUR ---
Blood sample sent to lab for analysis of vancomycin level.
[2019-09-10] MEDS: HYDROMORPHONE 1MG/1ML INJ IV PRN ×3 (01:55→13:59)
[2019-09-10] MEDS: VANCOMYCIN 1GM/NS 250 ML 250 ML IV SCH (03:06)
[2019-09-10 04:00] VITALS: BP 125/80
--- NOTE | 2019-09-10 07:52 | Progress Note ---
DATE: SUBJECTIVE: The patient comes in with cellulitis of the right hand, status post amputation by Dr. Johnston. The patient is doing well. No complaints. No chest pain. No shortness of breath. Wants to go home. MEDICATIONS: She is on vancomycin, hydromorphone, hydrocodone, Rocephin, Zofran, lorazepam, amlodipine, and acetaminophen. OBJECTIVE: VITAL SIGNS: Temperature is 98.6, pulse of 87, respirations of 20, and pulse oximetry of 94%. HEENT: Normocephalic and atraumatic. Pupils are reactive to light and accommodation. LUNGS: Good air entry. ABDOMEN: Soft. EXTREMITIES: Right hand in a guaze covered. The patient has no seepage noted. LABORATORY VALUES: White count is 6.25 on 09/06. Chemistries; sodium 136, CO2 of 21, BUN of 6, and creatinine of 0.71. Toxicology; vancomycin trough of 6.9 today. MICROBIOLOGY: Gram stain and blood cultures are negative. ASSESSMENT: Ms. Jennifer Waldrop with status post amputation of the right hand digits, status post debridement, history of Raynaud phenomenon with peripheral arterial disease and gastroesophageal reflux. PLAN: Continue with antibiotic. Continue with vancomycin. The patient can be discharged with PICC line when okay with ID and when okay with Dr. Johnston. This is Dr. Pantoja covering for Dr. Reese. MD BIB Noyola/BLAISEL /[id number]
[2019-09-10 07:57] VITALS: BP 134/70
[2019-09-10 08:20] VITALS: BP 134/70
[2019-09-10] MEDS: PANTOPRAZOLE SOD 40 MG TABEC PO SCH (08:44)
[2019-09-10] MEDS: HYDROCODONE/APAP 10MG-325MG TAB PO PRN ×2 (10:15→16:30)
[2019-09-10 11:24] VITALS: BP 128/69
[2019-09-10] MEDS ORDERED: VANCOMYCIN 1GM/NS 250 ML 250 ML IV SCH ×2 (11:30→14:00)
[2019-09-10] MEDS: AMLODIPINE BESYLATE 5 MG TAB PO SCH (13:50)
[2019-09-10 16:47] VITALS: BP 166/77
--- NOTE | 2019-09-10 17:56 | NUR ---
patient is requesting to be discharged or says she will leave AMA and "call Dr. Reese on Thursday". I explained to the patient that Dr Pantoja plans on discharging her in the morning. Patient insists on leaving tonight. Called and spoke again to Dr. Pantoja he said if there are prescriptions on the chart for abx then patient can dc home tonight.
--- NOTE | 2019-09-10 18:01 | NUR ---
RX in chart
[2019-09-10] MEDS ORDERED: DOXYCYCLINE HY100 MG PO (18:02)
--- NOTE | 2019-09-10 18:33 | NUR ---
Discharge instructions and prescriptions were given to the patient, she verbalized understanding. IV to the left forearm was removed with tip intact.
== END 2019-09-10 18:44 | disposition home or self-care (01) | DRG 513 ==
LOC: ER 23:10 → ERHOLD 23:13 → MED/SURG3 23:15 → MED/SURG2 09-07 17:20
PROVIDERS: ADMIT Internal Medicine; ATTEND Internal Medicine
PROC: 0JQJ0ZZ Repair Right Hand Subcutaneous Tissue and Fascia, Open Approach (ICD-10-PCS; principal; 2019-09-06)
DX: T87.81 Dehiscence of amputation stump (principal); M31.8 Other specified necrotizing vasculopathies; I73.00 Raynaud's syndrome without gangrene; K21.9 Gastro-esophageal reflux disease without esophagitis; F41.9 Anxiety disorder, unspecified; Z89.021 Acquired absence of right finger(s); L03.011 Cellulitis of right finger; F17.200 Nicotine dependence, unspecified, uncomplicated; I73.9 Peripheral vascular disease, unspecified; I10 Essential (primary) hypertension; Z11.59 Encounter for screening for other viral diseases; T87.41 Infection of amputation stump, right upper extremity; J44.9 Chronic obstructive pulmonary disease, unspecified
CPT/HCPCS: 36415; 80053; 80202; 83605; 85025; 87040; 87071; 87075; 87186; 87205; 87635; 99284; J0692; J0696; J1170; J1885; J2001; J2060; J2250; J2405; J2550; J3010; J3370; Q0162

== ENCOUNTER → 2019-10-11 | Day surgery (SDC) | payer MEDICARE, OTHER ==
[~2019-10-11] MED LIST changes: +BUPIVACAINE HCL 0.5% INJ 30 ML VIAL INJ ONE; +CEFAZOLIN SOD 1 GM/NS 50ML 50 ML IV ONE; +DEXAMETHASONE SOD PHOS INJ 4 MG/ML VIAL ONE; +DOXYCYCLINE HY100 MG PO; +KETOROLAC TROMETHAMINE 30 MG/ML VIAL ONE; +METOCLOPRAMIDE HCL 10 MG/2ML VIAL ONE; +MORPHINE SULFATE 2 MG/ML SYR 1ML ONE; +MULTI-VITAMIN1 EACH PO; +MUPIROCIN 2% OINT 22 GM TUBE ONE; +ONDANSETRON HCL INJ 2MG/ML 2ML 2 MG/ML VIAL ONE; +SEVOFLURANE INHAL SOLN 250 ML PEN BTL ONE; +VITAMIN A8000 UNIT PEG; +VITAMIN B122500 MCG PO
[2019-10-11 12:00] VITALS: BP 171/84
--- NOTE | 2019-10-11 13:43 | Operative Report ---
DATE OF PROCEDURE: 10/11/2019 SURGEON: Aron Johnston MD PREOPERATIVE DIAGNOSES: 1. Disruption of surgical incision, right hand. 2. 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 POSTOPERATIVE DIAGNOSES: 1. Disruption of surgical incision, right hand. 2. 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 PROCEDURES: Ray resection, right long finger metacarpal to a secondary closure of surgical wound. ANESTHESIA: General. HISTORY: The patient is a 64-year-old [id number] female, who underwent amputation of the right long finger in July. The patient presented to the office several days ago with complete dehiscence and disruption of the surgical incision with exposed metacarpal head. The metacarpal head is now has evidence of superficial colonization consistent with the beginning of osteomyelitis. The risks, benefits, and alternatives were discussed with the patient. She is prepared to undergo the procedure as outlined. PROCEDURE IN DETAIL: The patient was marked preoperatively in the holding area. She was brought to the operating theater and after the induction of adequate general anesthesia, she was prepped and draped in a supine position and a time-out was performed. The right upper extremity was exsanguinated and the tourniquet was inflated to a pressure of 250 mmHg. The remaining portion of the surgical incision was incised through the skin and subcutaneous tissues. Bleeding was controlled using the bipolar cautery. The dissection continues directly onto the remaining head of the metacarpal and metacarpal neck and shaft. At this point, the dorsal and volar structures were incised directly onto the metacarpal shaft and neck and then are excised. The interface between the shaft and the metacarpal neck was then sawed with a Powered Sagittal saw and the head of the metacarpal were completely removed. The end of the metacarpal shaft was then rasped until the end was smoothed around. At this point, the wound was copiously irrigated with an antibiotic containing solution. Several 100 mL were used. At this point, the skin and soft tissues are sharply debrided of devitalized colonized tissue and then closed with 4-0 PDS suture in an interrupted horizontal mattress fashion. A Marcaine field block was performed at the operative site. The tourniquet was deflated. The remaining fingers pinked up nicely and a sterile bulky conforming bandage was applied. The patient tolerated the procedure well and was brought to recovery room in satisfactory condition and discharged with a postoperative instruction sheet as well as a followup appointment. MD ARJUN Coronel/SHAY /[id number]
== END | disposition home or self-care (01) ==
LOC: OR 08:40
PROVIDERS: ATTEND Plastic Surgery
DX: T81.33XA Disruption of traumatic injury wound repair, initial encounter (principal); M86.9 Osteomyelitis, unspecified; Z89.021 Acquired absence of right finger(s); M34.9 Systemic sclerosis, unspecified; I73.00 Raynaud's syndrome without gangrene; J44.9 Chronic obstructive pulmonary disease, unspecified; Y83.8 Other surgical procedures as the cause of abnormal reaction of the patient, or of later complication, without mention of misadventure at the time of the procedure; Z88.6 Allergy status to analgesic agent; Z01.810 Encounter for preprocedural cardiovascular examination; Z01.812 Encounter for preprocedural laboratory examination; Z11.59 Encounter for screening for other viral diseases; Z87.891 Personal history of nicotine dependence
CPT/HCPCS: 26910; 93005; J0690; J1100; J1885; J2270; J2405; J2765; U0002

== ENCOUNTER 2020-03-25 14:29 | Emergency (ER) | payer MEDICARE ==
[~2020-03-25] VITALS: Ht 167.6 cm; Wt 54.4 kg
[~2020-03-25 14:29] MED LIST changes: -BUPIVACAINE HCL 0.5% INJ 30 ML VIAL INJ ONE; -CEFAZOLIN SOD 1 GM/NS 50ML 50 ML IV ONE; -DEXAMETHASONE SOD PHOS INJ 4 MG/ML VIAL ONE; -KETOROLAC TROMETHAMINE 30 MG/ML VIAL ONE; -METOCLOPRAMIDE HCL 10 MG/2ML VIAL ONE; -MORPHINE SULFATE 2 MG/ML SYR 1ML ONE; -MUPIROCIN 2% OINT 22 GM TUBE ONE; -ONDANSETRON HCL INJ 2MG/ML 2ML 2 MG/ML VIAL ONE; -SEVOFLURANE INHAL SOLN 250 ML PEN BTL ONE
[2020-03-25] MEDS ORDERED: BACTRIM DS TAB1 EACH PO (15:48)
[2020-03-25] MEDS ORDERED: NORCO 7.5-3251 EACH PO (15:48)
[2020-03-25 16:05] VITALS: BP 127/74
[2020-03-25] MEDS ORDERED: HYDROCODONE/APAP 10MG-325MG TAB PO ONE (16:30)
[2020-03-25] MEDS ORDERED: PROMETHAZINE HCL 25 MG TAB PO ONE (16:30)
== END 2020-03-25 16:06 | disposition home or self-care (01) ==
LOC: ER 15:49
DX: L03.011 Cellulitis of right finger (principal); I73.00 Raynaud's syndrome without gangrene; J44.9 Chronic obstructive pulmonary disease, unspecified; M34.9 Systemic sclerosis, unspecified
CPT/HCPCS: 99282

== ENCOUNTER → 2020-05-03 | Day surgery (SDC) | payer MEDICARE ==
[~2020-05-03] MED LIST changes: +BACTRIM DS TAB1 EACH PO; +CEFAZOLIN SOD 1 GM/NS 50ML 50 ML IV ONE; +DEXAMETHASONE SOD PHOS INJ 4 MG/ML VIAL ONE; +FENTANYL CITRATE/PF 100MCG/2 ML INJ ONE; +HYDROCODON-ACE1 EA12 PO; +LIDOCAINE HCL 2% LOCAL INJ 5 ML SDV VIAL INJ ONE; +MIDAZOLAM HCL 2 MG/2 ML VIAL ONE; +MUPIROCIN 2% OINT 22 GM TUBE ONE; +NIFEDIPINE10 MG PO; +NORCO 7.5-3251 EACH PO; +ONDANSETRON HCL INJ 2MG/ML 2ML 2 MG/ML VIAL ONE; +PROAIR HFA INH8.5 GM INH; +PROMETHAZINE12.5 M1 PO; +PROPOFOL IV EMULSION 10 MG/ML 20 ML VIAL ONE; +SCOPOLAMINE 1.5 MG PATCH ONE; +SEVOFLURANE INHAL SOLN 250 ML PEN BTL ONE; +VICODIN HP 10-1 EAC1 PO; -VITAMIN A8000 UNIT PEG; +VITAMIN A8000 UNIT PO
[2020-05-03 08:48] VITALS: BP 138/71
== END | disposition home or self-care (01) ==
LOC: OR 05:32
PROVIDERS: ATTEND Plastic Surgery
DX: I73.01 Raynaud's syndrome with gangrene (principal); M34.9 Systemic sclerosis, unspecified; J44.9 Chronic obstructive pulmonary disease, unspecified; I10 Essential (primary) hypertension; F41.9 Anxiety disorder, unspecified; Z01.812 Encounter for preprocedural laboratory examination; Z01.818 Encounter for other preprocedural examination; Z20.822 Contact with and (suspected) exposure to COVID-19; Z87.891 Personal history of nicotine dependence
CPT/HCPCS: 26952; 71046; 88305; 88311; J0690; J1100; J2001; J2405; J2704; U0002; 88304; J2250; J3010

== ENCOUNTER → 2020-06-05 | Day surgery (SDC) | payer MEDICARE ==
[2020-06-01 12:13] LABS: BASOPHILS # (AUTO) 0.1 (0.0-0.1); BASOPHILS % 1.1 % (0.0-1.0); EOSINOPHILS # (AUTO) 0.3 (0.0-0.4); EOSINOPHILS % 3.2 % (0.0-6.0); HEMATOCRIT 42.6 % (34.2-44.1); HEMOGLOBIN 13.2 g/dL (12.0-16.0); LYMPHOCYTES # (AUTO) 1.6 (1.0-3.2); LYMPHOCYTES % 17.5 % (18.0-39.1); MEAN CORPUSCULAR HEMOGLOBIN 26.4 pg (28-32); MEAN CORPUSCULAR VOLUME 85.2 fL (81-99); MONOCYTES # (AUTO) 0.6 (0.2-0.8); MONOCYTES % 6.3 % (4.4-11.3); NEUTROPHILS # (AUTO) 6.6 (2.1-6.9); NEUTROPHILS % 71.5 % (38.7-80.0); PLATELET COUNT 88 x10e3/uL (140-360)
[2020-06-01 13:29] LABS: EOSINOPHILS % (MANUAL) 3 % (0-7); LYMPHOCYTES % (MANUAL) 15 % (19-48); MONOCYTES % (MANUAL) 6 % (3.4-9.0); NEUTROPHILS % (MANUAL) 76 % (40-74)
[~2020-06-05] MED LIST changes: +BUPIVACAINE HCL 0.5% INJ 30 ML VIAL INJ ONE; -LIDOCAINE HCL 2% LOCAL INJ 5 ML SDV VIAL INJ ONE; +METOCLOPRAMIDE HCL 10 MG/2ML VIAL ONE; -PROPOFOL IV EMULSION 10 MG/ML 20 ML VIAL ONE
[2020-06-05 08:48] VITALS: BP 126/68
== END | disposition home or self-care (01) ==
LOC: OR 05:25
PROVIDERS: ATTEND Plastic Surgery
DX: I73.01 Raynaud's syndrome with gangrene (principal); M34.9 Systemic sclerosis, unspecified; J44.9 Chronic obstructive pulmonary disease, unspecified; I10 Essential (primary) hypertension; F17.210 Nicotine dependence, cigarettes, uncomplicated; F41.9 Anxiety disorder, unspecified; Z88.6 Allergy status to analgesic agent; Z01.812 Encounter for preprocedural laboratory examination; Z20.822 Contact with and (suspected) exposure to COVID-19; Z89.429 Acquired absence of other toe(s), unspecified side
CPT/HCPCS: 26910; 36415; 85025; 88304; 88311; 93005; J0690; J1100; J2250; J2405; J2765; J3010; U0002

== ENCOUNTER 2020-08-30 08:54 | Inpatient (IN) | payer MEDICARE ==
[~2020-08-30] VITALS: Ht 167.6 cm; Wt 51.3 kg
[~2020-08-30 08:54] MED LIST changes: -BUPIVACAINE HCL 0.5% INJ 30 ML VIAL INJ ONE; -CEFAZOLIN SOD 1 GM/NS 50ML 50 ML IV ONE; -DEXAMETHASONE SOD PHOS INJ 4 MG/ML VIAL ONE; -FENTANYL CITRATE/PF 100MCG/2 ML INJ ONE; -METOCLOPRAMIDE HCL 10 MG/2ML VIAL ONE; -MIDAZOLAM HCL 2 MG/2 ML VIAL ONE; -MUPIROCIN 2% OINT 22 GM TUBE ONE; -ONDANSETRON HCL INJ 2MG/ML 2ML 2 MG/ML VIAL ONE; -SCOPOLAMINE 1.5 MG PATCH ONE; -SEVOFLURANE INHAL SOLN 250 ML PEN BTL ONE
[2020-08-30] MEDS ORDERED: MAGNESIUM/ALUMINUM/SIMETHICONE 30 ML UDC PO ONE (09:30)
[2020-08-30] MEDS ORDERED: BELLADONNA ALK/PHENOBARBITAL 5 ML UDC PO ONE (09:30)
[2020-08-30] MEDS ORDERED: LIDOCAINE VISC 2% SOLN 15 ML UDC PO ONE (09:30)
[2020-08-30 09:53] LABS: BASOPHILS # (AUTO) 0.1 (0.0-0.1); BASOPHILS % 0.5 % (0.0-1.0); EOSINOPHILS # (AUTO) 0.1 (0.0-0.4); EOSINOPHILS % 0.5 % (0.0-6.0); HEMATOCRIT 32.7 % (34.2-44.1); HEMOGLOBIN 10.5 g/dL (12.0-16.0); LYMPHOCYTES # (AUTO) 0.7 (1.0-3.2); LYMPHOCYTES % 5.5 % (18.0-39.1); MEAN CORPUSCULAR HEMOGLOBIN 25.9 pg (28-32); MEAN CORPUSCULAR HGB CONC 32.1 g/dL (31-35); MEAN CORPUSCULAR VOLUME 80.7 fL (81-99); MONOCYTES # (AUTO) 1.2 (0.2-0.8); MONOCYTES % 8.9 % (4.4-11.3); NEUTROPHILS # (AUTO) 11.2 (2.1-6.9); NEUTROPHILS % 84.1 % (38.7-80.0); PLATELET COUNT 367 x10e3/uL (140-360); RED BLOOD COUNT 4.05 x10e6/uL (3.6-5.1); RED CELL DISTRIBUTION WIDTH 18.4 % (11.7-14.4)
[2020-08-30] MEDS ORDERED: ONDANSETRON HCL INJ 2MG/ML 2ML 2 MG/ML VIAL IV STA (10:21)
[2020-08-30] MEDS ORDERED: MORPHINE SULFATE INJ 4 MG/ML INJ 1ML IV STA (10:21)
[2020-08-30 10:25] LABS: ANION GAP 11.4 mmol/L (8-16); CALCIUM 8.9 mg/dL (8.4-10.2); CREATININE, SERUM 1.06 mg/dL (0.57-1.11); POTASSIUM 4.4 mmol/L (3.5-5.1)
[2020-08-30 10:29] LABS: MAGNESIUM 1.9 MG/DL (1.3-2.1)
[2020-08-30 10:35] LABS: CREATINE KINASE MB 1.3 ng/mL (0-5.0)
[2020-08-30 10:48] LABS: INR 0.99; PROTHROMBIN TIME 13.7 seconds (11.9-14.5)
[2020-08-30 10:49] LABS: PARTIAL THROMBOPLASTIN TIME 29.2 seconds (23.8-35.5)
[2020-08-30] MEDS ORDERED: ENOXAPARIN SOD INJ 60 MG/0.6 ML SYR SC ONE (11:00)
[2020-08-30] MEDS ORDERED: SODIUM CHLORIDE 0.9% 500ML 500 ML IV ONE (11:00)
[2020-08-30] MEDS ORDERED: IOPAMIDOL 370 MG/ML 200 ML INFUS..BTL INJ ONE ×2 (11:22→20:36)
[2020-08-30] MEDS ORDERED: SODIUM CHLORIDE 0.9% 50ML 50 ML ONE ×2 (11:22→20:35)
[2020-08-30] MEDS: FAMOTIDINE 20 MG/2 ML VIAL IV SCH ×2 (11:52→21:33)
[2020-08-30 13:51] VITALS: BP 153/72
[2020-08-30 15:35] VITALS: BP 136/75
[2020-08-30] MEDS: MORPHINE SULFATE INJ 2 MG/ML SYR IV PRN ×2 (16:01→21:40)
[2020-08-30] MEDS: ONDANSETRON HCL INJ 2MG/ML 2ML 2 MG/ML VIAL IV PRN ×2 (16:01→21:57)
[2020-08-30 17:13] LABS: CREATINE KINASE MB 1.3 ng/mL (0-5.0)
[2020-08-30 17:15] VITALS: BP 136/75
[2020-08-30 20:05] VITALS: BP 121/60
[2020-08-30 21:00] VITALS: BP 121/60
[2020-08-31] VITALS (7 sets, daily range): BP systolic 106–158; BP diastolic 55–75
[2020-08-31 05:31] LABS: BASOPHILS # (AUTO) 0.1 (0.0-0.1); BASOPHILS % 1.2 % (0.0-1.0); EOSINOPHILS # (AUTO) 0.2 (0.0-0.4); EOSINOPHILS % 2.1 % (0.0-6.0); HEMATOCRIT 30.3 % (34.2-44.1); HEMOGLOBIN 9.5 g/dL (12.0-16.0); LYMPHOCYTES # (AUTO) 2.1 (1.0-3.2); MEAN CORPUSCULAR HEMOGLOBIN 25.9 pg (28-32); MEAN CORPUSCULAR HGB CONC 31.4 g/dL (31-35); MEAN CORPUSCULAR VOLUME 82.6 fL (81-99); MONOCYTES % 12.5 % (4.4-11.3); NEUTROPHILS # (AUTO) 4.3 (2.1-6.9); NEUTROPHILS % 55.9 % (38.7-80.0); PLATELET COUNT 299 x10e3/uL (140-360); RED BLOOD COUNT 3.67 x10e6/uL (3.6-5.1); RED CELL DISTRIBUTION WIDTH 18.4 % (11.7-14.4)
[2020-08-31] MEDS ORDERED: HYDROCODONE/APAP 7.5MG-325MG 1 EA TAB PO PRN (05:45)
[2020-08-31] MEDS: MORPHINE SULFATE INJ 2 MG/ML SYR IV PRN ×3 (05:54→22:58)
[2020-08-31 05:58] LABS: ALBUMIN 2.5 g/dL (3.5-5.0); ALBUMIN/GLOBULIN RATIO 0.9 (0.8-2.0); ANION GAP 10.4 mmol/L (8-16); CALCIUM 8.6 mg/dL (8.4-10.2); CHOL/HDL RATIO 3.7 (3.0-3.6); CREATININE, SERUM 1.01 mg/dL (0.57-1.11); POTASSIUM 4.4 mmol/L (3.5-5.1)
[2020-08-31] MEDS ORDERED: NIFEDIPINE 10 MG CAP PO SCH (09:00)
[2020-08-31] MEDS ORDERED: ASPIRIN 81 MG ENTERIC COATED PO SCH (09:00)
[2020-08-31] MEDS ORDERED: CITALOPRAM HYDROBROMIDE 20 MG TAB PO SCH (09:00)
[2020-08-31] MEDS: FAMOTIDINE 20 MG/2 ML VIAL IV SCH ×2 (10:20→21:00)
[2020-08-31] MEDS ORDERED: REGADENOSON 0.4 MG/5 ML SYR IV ONE (14:35)
[2020-09-01] VITALS: BP 140/74
[2020-09-01 04:00] VITALS: BP 162/78
[2020-09-01 08:00] VITALS: BP 141/83
[2020-09-01 08:38] VITALS: BP 141/83
[2020-09-01] MEDS ORDERED: CLOPIDOGREL BISULFATE 75 MG TAB PO SCH (09:00)
[2020-09-01] MEDS ORDERED: NIFEDIPINE CR 30 MG TAB PO SCH (21:00)
[2020-09-01] MEDS ORDERED: ATORVASTATIN 20 MG TAB PO SCH (21:00)
== END 2020-09-01 11:41 | disposition home or self-care (01) | DRG 313 ==
LOC: ER 09:41 → ERHOLD 11:04 → MED/SURG2 13:25
PROVIDERS: ADMIT Internal Medicine; ATTEND Internal Medicine
PROC: 02HV33Z Insertion of Infusion Device into Superior Vena Cava, Percutaneous Approach (ICD-10-PCS; principal; 2020-08-30)
DX: R07.89 Other chest pain (principal); E44.1 Mild protein-calorie malnutrition; Z68.1 Body mass index [BMI] 19.9 or less, adult; M34.0 Progressive systemic sclerosis; I10 Essential (primary) hypertension; J44.9 Chronic obstructive pulmonary disease, unspecified; K21.9 Gastro-esophageal reflux disease without esophagitis; K22.4 Dyskinesia of esophagus; I73.00 Raynaud's syndrome without gangrene; Z88.5 Allergy status to narcotic agent; Z82.49 Family history of ischemic heart disease and other diseases of the circulatory system; D64.9 Anemia, unspecified; Z89.021 Acquired absence of right finger(s); Z20.822 Contact with and (suspected) exposure to COVID-19; I25.10 Atherosclerotic heart disease of native coronary artery without angina pectoris
CPT/HCPCS: 36415; 36569; 71045; 71260; 78452; 80053; 80061; 82550; 82553; 83690; 83735; 83880; 84484; 85025; 85379; 85610; 85730; 93005; 93017; 93306; 99284; A9502; J1650; J2270; J2405; J7040; Q9967; U0002

== ENCOUNTER → 2020-10-25 | Day surgery (SDC) | payer MEDICARE ==
[~2020-10-25] MED LIST changes: +AMLODIPINE BESYL5 MG PO; +BUMETANIDE2 MG PO; +BUPIVACAINE HC 0.75% PF 10ML VIAL INJ ONE; +CITALOPRAM HBR40 MG PO; +FENTANYL CITRATE/PF 100MCG/2 ML INJ ONE; +HYDROCODON-ACE1 EAC9 PO; +LIDOCAINE HCL 1% LOCAL INJ 20 ML VIAL ONE; +MUPIROCIN 2% OINT 22 GM TUBE ONE; +SODIUM CHLORIDE 0.9% 50ML 50 ML ONE; +VIAGRA25 MG PO
[2020-10-25 09:40] VITALS: BP 130/63
== END | disposition home or self-care (01) ==
LOC: OR 06:54
PROVIDERS: ATTEND Plastic Surgery
DX: I73.01 Raynaud's syndrome with gangrene (principal); J44.9 Chronic obstructive pulmonary disease, unspecified; I10 Essential (primary) hypertension; K21.9 Gastro-esophageal reflux disease without esophagitis; M34.9 Systemic sclerosis, unspecified; F41.9 Anxiety disorder, unspecified; F17.210 Nicotine dependence, cigarettes, uncomplicated; Z88.6 Allergy status to analgesic agent; Z01.812 Encounter for preprocedural laboratory examination; Z20.822 Contact with and (suspected) exposure to COVID-19; Z89.022 Acquired absence of left finger(s); Z89.021 Acquired absence of right finger(s)
CPT/HCPCS: 26910; 88305; 88311; 93005; J0690; J3010; U0002; 88304; J2001

== ENCOUNTER → 2020-12-27 | Day surgery (SDC) | payer MEDICARE ==
[~2020-12-27] MED LIST changes: -BUPIVACAINE HC 0.75% PF 10ML VIAL INJ ONE; -FENTANYL CITRATE/PF 100MCG/2 ML INJ ONE; -LIDOCAINE HCL 1% LOCAL INJ 20 ML VIAL ONE; -MUPIROCIN 2% OINT 22 GM TUBE ONE; -SODIUM CHLORIDE 0.9% 50ML 50 ML ONE
[2020-12-27 08:40] VITALS: BP 112/55
== END | disposition home or self-care (01) ==
LOC: OR 06:32
PROVIDERS: ATTEND Internal Medicine Gastroenterology
DX: T18.128A Food in esophagus causing other injury, initial encounter (principal); K44.9 Diaphragmatic hernia without obstruction or gangrene; K29.50 Unspecified chronic gastritis without bleeding; K20.90 Esophagitis, unspecified without bleeding; K31.89 Other diseases of stomach and duodenum; K21.9 Gastro-esophageal reflux disease without esophagitis; M34.9 Systemic sclerosis, unspecified; J44.9 Chronic obstructive pulmonary disease, unspecified; I73.00 Raynaud's syndrome without gangrene; I10 Essential (primary) hypertension; F41.9 Anxiety disorder, unspecified; F17.210 Nicotine dependence, cigarettes, uncomplicated; X58.XXXA Exposure to other specified factors, initial encounter; Z88.6 Allergy status to analgesic agent; Z01.812 Encounter for preprocedural laboratory examination; Z20.822 Contact with and (suspected) exposure to COVID-19
CPT/HCPCS: 43233; 43239; U0002

== ENCOUNTER 2022-01-05 13:50 | Inpatient (IN) | payer MEDICARE ==
[~2022-01-05] VITALS: Ht 167.6 cm; Wt 54.4 kg
[~2022-01-05 13:50] MED LIST changes: +CEPHALEXIN500 MG PO; +ULTRAM 50MG50 MG PO
[2022-01-05 15:02] LABS: BASOPHILS # (AUTO) 0.1 (0.0-0.1); BASOPHILS % 1.1 % (0.0-1.0); EOSINOPHILS # (AUTO) 0.1 (0.0-0.4); EOSINOPHILS % 0.8 % (0.0-6.0); HEMOGLOBIN 10.6 g/dL (12.0-16.0); LYMPHOCYTES # (AUTO) 1.2 (1.0-3.2); LYMPHOCYTES % 13.3 % (18.0-39.1); MEAN CORPUSCULAR HEMOGLOBIN 24.5 pg (28-32); MEAN CORPUSCULAR HGB CONC 30.3 g/dL (31-35); MONOCYTES # (AUTO) 0.3 (0.2-0.8); MONOCYTES % 3.6 % (4.4-11.3); NEUTROPHILS # (AUTO) 7.4 (2.1-6.9); NEUTROPHILS % 80.9 % (38.7-80.0); PLATELET COUNT 426 x10e3/uL (140-360); RED BLOOD COUNT 4.32 x10e6/uL (3.6-5.1); RED CELL DISTRIBUTION WIDTH 22.3 % (11.7-14.4)
[2022-01-05 15:16] LABS: INR 0.95; PROTHROMBIN TIME 13.6 seconds (11.9-14.5)
[2022-01-05 15:26] LABS: ALBUMIN 3.9 g/dL (3.5-5.0); CREATININE, SERUM 1.81 mg/dL (0.57-1.11)
[2022-01-05 15:33] LABS: CREATINE KINASE MB 5.8 ng/mL (0-5.0)
[2022-01-05 16:32] LABS: CLARITY,URINE CLEAR (CLEAR); COLOR,URINE YELLOW (YELLOW); KETONES,URINE NEGATIVE (NEGATIVE); LEUKOCYTE ESTERASE ,URINE NEGATIVE (NEGATIVE); NITRITE,URINE NEGATIVE (NEGATIVE); PROTEIN,URINE DIPSTICK NEGATIVE (NEGATIVE); URINE UROBILINOGEN 0.2 mg/dL (0.2 - 1)
[2022-01-05 16:42] LABS: WBC,URINE (MAN) 0-5 /HPF (0-5)
[2022-01-05 16:43] LABS: BACTERIA,URINE RARE /HPF; EPITHELIAL CELLS,URINE RARE /LPF
[2022-01-05] MEDS ORDERED: ALBUTEROL/IPRATROPIUM 3 ML NEB NEB STA (16:52)
[2022-01-05] MEDS ORDERED: ASPIRIN 81 MG CHEW TAB PO STA (16:52)
[2022-01-05] MEDS ORDERED: METHYLPREDNISOLONE SOD SUCC 125 MG/2ML VIAL IV STA (16:52)
[2022-01-05] MEDS ORDERED: ONDANSETRON HCL INJ 2MG/ML 2ML 2 MG/ML VIAL IV PRN (17:00)
[2022-01-05] MEDS: FAMOTIDINE 20 MG/2 ML VIAL IV SCH (17:16)
[2022-01-05] MEDS: ALBUTEROL/IPRATROPIUM 3 ML NEB NEB SCH ×2 (18:01→22:30)
[2022-01-05] MEDS: HYDROCODONE/APAP 10MG-325MG TAB PO PRN (19:26)
[2022-01-05 19:44] LABS: CREATINE KINASE MB 4.8 ng/mL (0-5.0)
[2022-01-05 21:00] VITALS: BP 151/77
[2022-01-05 23:20] VITALS: BP 151/77
[2022-01-05 23:51] VITALS: BP 151/77
[2022-01-06] VITALS (9 sets, daily range): BP systolic 138–170; BP diastolic 76–97
[2022-01-06] MEDS: HYDROCODONE/APAP 10MG-325MG TAB PO PRN ×3 (01:13→14:09)
[2022-01-06] MEDS ORDERED: CIALIS10 MG (02:05)
[2022-01-06] MEDS: ALBUTEROL/IPRATROPIUM 3 ML NEB NEB SCH ×6 (03:10→22:55)
[2022-01-06 03:49] LABS: CREATINE KINASE MB 4.4 ng/mL (0-5.0)
[2022-01-06] MEDS ORDERED: FUROSEMIDE INJ 10 MG/ML 2 ML VIAL IV ONE (04:00)
[2022-01-06] MEDS: FAMOTIDINE 20 MG/2 ML VIAL IV SCH ×2 (05:23→18:00)
[2022-01-06 06:03] LABS: ALBUMIN 3.3 g/dL (3.5-5.0); ANION GAP 18.3 mmol/L (8-16); CALCIUM 9.5 mg/dL (8.4-10.2); CHOL/HDL RATIO 2.5 (3.0-3.6); CREATININE, SERUM 2.04 mg/dL (0.57-1.11); POTASSIUM 4.3 mmol/L (3.5-5.1)
[2022-01-06 06:27] LABS: CREATINE KINASE MB 4.8 ng/mL (0-5.0)
[2022-01-06 06:28] LABS: BASOPHILS % 0.2 % (0.0-1.0); HEMATOCRIT 26.3 % (34.2-44.1); LYMPHOCYTES # (AUTO) 0.6 (1.0-3.2); LYMPHOCYTES % 12.9 % (18.0-39.1); MEAN CORPUSCULAR HEMOGLOBIN 24.4 pg (28-32); MEAN CORPUSCULAR HGB CONC 31.6 g/dL (31-35); MONOCYTES # (AUTO) 0.1 (0.2-0.8); MONOCYTES % 2.5 % (4.4-11.3); NEUTROPHILS # (AUTO) 4.1 (2.1-6.9); NEUTROPHILS % 84.2 % (38.7-80.0); PLATELET COUNT 289 x10e3/uL (140-360); RED CELL DISTRIBUTION WIDTH 21.4 % (11.7-14.4)
[2022-01-06 06:29] LABS: HEMOGLOBIN 8.3 g/dL (12.0-16.0); MEAN CORPUSCULAR VOLUME 77.4 fL (81-99)
[2022-01-06] MEDS ORDERED: ONDANSETRON HCL 4 MG ORAL DISINTEGRATING TAB PO PRN (09:45)
[2022-01-06] MEDS: ASPIRIN 81 MG ENTERIC COATED PO SCH (09:49)
[2022-01-06] MEDS: CITALOPRAM HYDROBROMIDE 20 MG TAB PO SCH (09:49)
[2022-01-06] MEDS: AMLODIPINE BESYLATE 5 MG TAB PO SCH (09:50)
[2022-01-06] MEDS: ONDANSETRON HCL 4 MG ORAL DISINTEGRATING TAB SL PRN (14:12)
[2022-01-06] MEDS ORDERED: DIPHENHYDRAMINE HCL 25 MG CAP PO PRN (14:15)
[2022-01-06] MEDS ORDERED: POLYETHYLENE GLYCOL 3350 17 GM PACK PO PRN (20:15)
[2022-01-06] MEDS ORDERED: PROMETHAZINE 25MG/ NS 50ML (IV) IV PRN (20:15)
[2022-01-07] VITALS (7 sets, daily range): BP systolic 141–151; BP diastolic 75–92
[2022-01-07] MEDS: ALBUTEROL/IPRATROPIUM 3 ML NEB NEB SCH ×6 (03:02→20:00)
[2022-01-07] MEDS: FAMOTIDINE 20 MG/2 ML VIAL IV SCH ×2 (06:09→18:00)
[2022-01-07 06:34] LABS: BASOPHILS # (AUTO) 0.1 (0.0-0.1); BASOPHILS % 0.9 % (0.0-1.0); EOSINOPHILS # (AUTO) 0.2 (0.0-0.4); EOSINOPHILS % 2.8 % (0.0-6.0); HEMATOCRIT 23.7 % (34.2-44.1); HEMOGLOBIN 7.7 g/dL (12.0-16.0); LYMPHOCYTES # (AUTO) 1.8 (1.0-3.2); LYMPHOCYTES % 22.5 % (18.0-39.1); MEAN CORPUSCULAR HEMOGLOBIN 26.4 pg (28-32); MEAN CORPUSCULAR HGB CONC 32.5 g/dL (31-35); MEAN CORPUSCULAR VOLUME 81.2 fL (81-99); MONOCYTES # (AUTO) 0.6 (0.2-0.8); NEUTROPHILS # (AUTO) 5.3 (2.1-6.9); NEUTROPHILS % 66.4 % (38.7-80.0); PLATELET COUNT 290 x10e3/uL (140-360); RED BLOOD COUNT 2.92 x10e6/uL (3.6-5.1); RED CELL DISTRIBUTION WIDTH 23.2 % (11.7-14.4)
[2022-01-07] MEDS: HYDROCODONE/APAP 10MG-325MG TAB PO PRN (06:57)
[2022-01-07 07:06] LABS: ALBUMIN 3.2 g/dL (3.5-5.0); ANION GAP 15.3 mmol/L (8-16); CALCIUM 8.9 mg/dL (8.4-10.2); CREATININE, SERUM 2.11 mg/dL (0.57-1.11); MAGNESIUM 2.1 MG/DL (1.3-2.1); POTASSIUM 4.3 mmol/L (3.5-5.1)
[2022-01-07 07:07] LABS: ALBUMIN/GLOBULIN RATIO 1.2 (0.8-2.0)
[2022-01-07] MEDS: CITALOPRAM HYDROBROMIDE 20 MG TAB PO SCH (09:09)
[2022-01-07] MEDS: ASPIRIN 81 MG ENTERIC COATED PO SCH (09:09)
[2022-01-07] MEDS: AMLODIPINE BESYLATE 5 MG TAB PO SCH (09:10)
[2022-01-07 11:16] LABS: % IRON SATURATION 3 % (15-50); IRON 11 ug/dL (50-170); TOTAL IRON BINDING CAPACITY 402 ug/dL (261-478); TRANSFERRIN 287 mg/dL (180-382)
[2022-01-07] MEDS: FUROSEMIDE INJ 10 MG/ML 4 ML VIAL IV SCH ×2 (11:45→21:52)
[2022-01-07] MEDS ORDERED: AZITHROMYCIN 250 MG TAB PO ONE (15:00)
[2022-01-07] MEDS ORDERED: SODIUM CHLORIDE 0.9% 0 ML ONE (16:11)
[2022-01-07] MEDS: IRON SUCROSE 100 MG in SODIUM CHLORIDE 0.9% 100 ML IV SCH (17:41)
[2022-01-07] MEDS: ATORVASTATIN 10 MG TAB PO SCH (21:52)
[2022-01-07] MEDS: METHYLPREDNISOLONE SOD SUCC 125 MG/2ML VIAL IV SCH (21:53)
[2022-01-08] VITALS (7 sets, daily range): BP systolic 138–164; BP diastolic 74–93
[2022-01-08] MEDS: ALBUTEROL/IPRATROPIUM 3 ML NEB NEB SCH ×6 (01:15→21:20)
[2022-01-08] MEDS: FAMOTIDINE 20 MG/2 ML VIAL IV SCH ×2 (06:24→17:45)
[2022-01-08 07:04] LABS: BASOPHILS % 0.2 % (0.0-1.0); HEMATOCRIT 26.2 % (34.2-44.1); LYMPHOCYTES # (AUTO) 0.2 (1.0-3.2); MEAN CORPUSCULAR HEMOGLOBIN 23.9 pg (28-32); MEAN CORPUSCULAR HGB CONC 30.5 g/dL (31-35); MONOCYTES % 0.6 % (4.4-11.3); NEUTROPHILS % 95.4 % (38.7-80.0); PLATELET COUNT 281 x10e3/uL (140-360); RED BLOOD COUNT 3.35 x10e6/uL (3.6-5.1); RED CELL DISTRIBUTION WIDTH 21.7 % (11.7-14.4)
[2022-01-08 07:06] LABS: MEAN CORPUSCULAR VOLUME 78.2 fL (81-99)
[2022-01-08 07:51] LABS: ALBUMIN 3.3 g/dL (3.5-5.0); ALBUMIN/GLOBULIN RATIO 1.2 (0.8-2.0); CALCIUM 9.2 mg/dL (8.4-10.2); CREATININE, SERUM 2.07 mg/dL (0.57-1.11)
[2022-01-08 08:04] LABS: LYMPHOCYTES % (MANUAL) 5 % (19-48); MONOCYTES % (MANUAL) 1 % (3.4-9.0); NEUTROPHILS % (MANUAL) 94 % (40-74)
[2022-01-08 08:05] LABS: ANISOCYTOSIS MODERATE; HYPOCHROMASIA MODERATE; MICROCYTOSIS MODERATE; OVALOCYTES FEW; PLATELET ESTIMATE ADEQUATE; PLATELET MORPHOLOGY COMMENT NORMAL; POLYCHROMASIA FEW; RBC MORPHOLOGY COMMENT ABNORMAL; TARGET CELLS FEW
[2022-01-08] MEDS ORDERED: METOPROLOL SUCCINATE 25 MG TAB XL PO SCH (09:00)
[2022-01-08] MEDS: FUROSEMIDE INJ 10 MG/ML 4 ML VIAL IV SCH ×2 (09:17→20:28)
[2022-01-08] MEDS: ASPIRIN 81 MG ENTERIC COATED PO SCH (09:18)
[2022-01-08] MEDS: METHYLPREDNISOLONE SOD SUCC 125 MG/2ML VIAL IV SCH (09:18)
[2022-01-08] MEDS: CITALOPRAM HYDROBROMIDE 20 MG TAB PO SCH (09:18)
[2022-01-08] MEDS: AZITHROMYCIN 250 MG TAB PO SCH (09:18)
[2022-01-08] MEDS: AMLODIPINE BESYLATE 5 MG TAB PO SCH (09:25)
[2022-01-08] MEDS: GUAIFENESIN 600 MG TAB PO SCH ×2 (10:41→17:45)
[2022-01-08] MEDS: HYDROCODONE/APAP 10MG-325MG TAB PO PRN (12:49)
[2022-01-08] MEDS: IRON SUCROSE 100 MG in SODIUM CHLORIDE 0.9% 100 ML IV SCH (16:25)
[2022-01-08] MEDS: MELATONIN 5 MG TABLET PO PRN (20:28)
[2022-01-08] MEDS: ATORVASTATIN 10 MG TAB PO SCH (20:28)
[2022-01-08] MEDS: METHYLPREDNISOLONE SOD SUCC 40 MG/ML VIAL 1ML IV SCH (20:28)
[2022-01-09] VITALS (7 sets, daily range): BP systolic 121–150; BP diastolic 79–89
[2022-01-09] MEDS: GUAIFENESIN 600 MG TAB PO SCH ×4 (00:39→18:00)
[2022-01-09] MEDS: FAMOTIDINE 20 MG/2 ML VIAL IV SCH (05:58)
[2022-01-09] MEDS: HYDROCODONE/APAP 10MG-325MG TAB PO PRN ×2 (05:58→18:13)
[2022-01-09] MEDS: ALBUTEROL/IPRATROPIUM 3 ML NEB NEB SCH ×5 (06:50→23:50)
[2022-01-09] MEDS ORDERED: ALPRAZOLAM 0.25 MG TAB PO PRN (07:00)
[2022-01-09 07:51] LABS: BASOPHILS % 0.1 % (0.0-1.0); HEMATOCRIT 26.5 % (34.2-44.1); LYMPHOCYTES # (AUTO) 0.8 (1.0-3.2); LYMPHOCYTES % 9.3 % (18.0-39.1); MEAN CORPUSCULAR HEMOGLOBIN 24.2 pg (28-32); MEAN CORPUSCULAR HGB CONC 30.2 g/dL (31-35); MEAN CORPUSCULAR VOLUME 80.3 fL (81-99); MONOCYTES # (AUTO) 0.6 (0.2-0.8); MONOCYTES % 6.4 % (4.4-11.3); NEUTROPHILS # (AUTO) 7.2 (2.1-6.9); NEUTROPHILS % 83.7 % (38.7-80.0); PLATELET COUNT 315 x10e3/uL (140-360)
[2022-01-09 08:00] LABS: ALBUMIN 3.5 g/dL (3.5-5.0); ALBUMIN/GLOBULIN RATIO 1.1 (0.8-2.0); ANION GAP 18.2 mmol/L (8-16); CALCIUM 9.8 mg/dL (8.4-10.2); CREATININE, SERUM 2.2 mg/dL (0.57-1.11); POTASSIUM 4.2 mmol/L (3.5-5.1)
[2022-01-09] MEDS: AZITHROMYCIN 250 MG TAB PO SCH (09:19)
[2022-01-09] MEDS: CITALOPRAM HYDROBROMIDE 20 MG TAB PO SCH (09:19)
[2022-01-09] MEDS: METOPROLOL SUCCINATE 25 MG TAB XL PO SCH (09:20)
[2022-01-09] MEDS: ASPIRIN 81 MG ENTERIC COATED PO SCH (09:21)
[2022-01-09] MEDS: METHYLPREDNISOLONE SOD SUCC 40 MG/ML VIAL 1ML IV SCH ×2 (09:21→21:50)
[2022-01-09] MEDS: FUROSEMIDE INJ 10 MG/ML 4 ML VIAL IV SCH ×2 (09:21→21:50)
[2022-01-09] MEDS: AMLODIPINE BESYLATE 5 MG TAB PO SCH (09:22)
[2022-01-09] MEDS: IRON SUCROSE 100 MG in SODIUM CHLORIDE 0.9% 100 ML IV SCH (16:00)
[2022-01-09] MEDS: FAMOTIDINE 20 MG TAB PO SCH (18:13)
[2022-01-09] MEDS: ATORVASTATIN 10 MG TAB PO SCH (21:50)
[2022-01-10] VITALS (8 sets, daily range): BP systolic 133–150; BP diastolic 65–81
[2022-01-10] MEDS: HYDROCODONE/APAP 10MG-325MG TAB PO PRN ×3 (00:52→21:42)
[2022-01-10] MEDS: ALBUTEROL/IPRATROPIUM 3 ML NEB NEB SCH ×6 (03:55→23:00)
[2022-01-10] MEDS: GUAIFENESIN 600 MG TAB PO SCH ×4 (05:08→17:23)
[2022-01-10] MEDS: FAMOTIDINE 20 MG TAB PO SCH ×2 (05:15→17:24)
[2022-01-10 06:17] LABS: BASOPHILS % 0.2 % (0.0-1.0); HEMOGLOBIN 7.8 g/dL (12.0-16.0); LYMPHOCYTES # (AUTO) 0.6 (1.0-3.2); LYMPHOCYTES % 8.9 % (18.0-39.1); MEAN CORPUSCULAR HEMOGLOBIN 24.7 pg (28-32); MEAN CORPUSCULAR HGB CONC 31.2 g/dL (31-35); MEAN CORPUSCULAR VOLUME 79.1 fL (81-99); MONOCYTES # (AUTO) 0.2 (0.2-0.8); NEUTROPHILS # (AUTO) 5.5 (2.1-6.9); NEUTROPHILS % 87.3 % (38.7-80.0); PLATELET COUNT 309 x10e3/uL (140-360); RED BLOOD COUNT 3.16 x10e6/uL (3.6-5.1); RED CELL DISTRIBUTION WIDTH 21.9 % (11.7-14.4)
[2022-01-10 06:39] LABS: ALBUMIN 3.4 g/dL (3.5-5.0); ALBUMIN/GLOBULIN RATIO 1.4 (0.8-2.0); ANION GAP 15.8 mmol/L (8-16); CALCIUM 9.2 mg/dL (8.4-10.2); CREATININE, SERUM 2.07 mg/dL (0.57-1.11); POTASSIUM 3.8 mmol/L (3.5-5.1)
[2022-01-10] MEDS: FUROSEMIDE INJ 10 MG/ML 4 ML VIAL IV SCH ×2 (09:00→20:51)
[2022-01-10] MEDS: METOPROLOL SUCCINATE 25 MG TAB XL PO SCH (09:00)
[2022-01-10] MEDS: AMLODIPINE BESYLATE 5 MG TAB PO SCH (09:00)
[2022-01-10] MEDS: AZITHROMYCIN 250 MG TAB PO SCH (09:00)
[2022-01-10] MEDS: ASPIRIN 81 MG ENTERIC COATED PO SCH (09:00)
[2022-01-10] MEDS: CITALOPRAM HYDROBROMIDE 20 MG TAB PO SCH (09:00)
[2022-01-10] MEDS: METHYLPREDNISOLONE SOD SUCC 40 MG/ML VIAL 1ML IV SCH ×2 (10:00→20:51)
[2022-01-10] MEDS ORDERED: SODIUM CHLORIDE 0.9% 250ML 250 ML ONE (14:13)
[2022-01-10] MEDS ORDERED: MIDAZOLAM HCL 2 MG/2 ML VIAL ONE (14:17)
[2022-01-10] MEDS ORDERED: FENTANYL CITRATE/PF 100MCG/2 ML INJ ONE (14:18)
[2022-01-10] MEDS ORDERED: CEFTRIAXONE 1 GM VIAL ONE (14:42)
[2022-01-10] MEDS: MELATONIN 5 MG TABLET PO PRN (20:51)
[2022-01-10] MEDS: ATORVASTATIN 10 MG TAB PO SCH (20:51)
[2022-01-11] VITALS (8 sets, daily range): BP systolic 137–167; BP diastolic 63–83
[2022-01-11] MEDS: GUAIFENESIN 600 MG TAB PO SCH ×4 (00:10→17:07)
[2022-01-11] MEDS: ALBUTEROL/IPRATROPIUM 3 ML NEB NEB SCH ×6 (03:00→23:00)
[2022-01-11] MEDS: HYDROCODONE/APAP 10MG-325MG TAB PO PRN ×4 (03:09→18:25)
[2022-01-11] MEDS: FAMOTIDINE 20 MG TAB PO SCH ×2 (06:11→17:07)
[2022-01-11] MEDS: METOPROLOL SUCCINATE 25 MG TAB XL PO SCH (09:00)
[2022-01-11] MEDS: AZITHROMYCIN 250 MG TAB PO SCH (09:00)
[2022-01-11] MEDS: AMLODIPINE BESYLATE 5 MG TAB PO SCH (09:00)
[2022-01-11] MEDS: METHYLPREDNISOLONE SOD SUCC 40 MG/ML VIAL 1ML IV SCH (09:00)
[2022-01-11] MEDS: ASPIRIN 81 MG ENTERIC COATED PO SCH (09:00)
[2022-01-11] MEDS: CITALOPRAM HYDROBROMIDE 20 MG TAB PO SCH (09:00)
[2022-01-11 11:16] LABS: BASOPHILS % 0.1 % (0.0-1.0); HEMATOCRIT 29.5 % (34.2-44.1); HEMOGLOBIN 8.7 g/dL (12.0-16.0); LYMPHOCYTES # (AUTO) 1.2 (1.0-3.2); LYMPHOCYTES % 15.4 % (18.0-39.1); MEAN CORPUSCULAR HEMOGLOBIN 24.4 pg (28-32); MEAN CORPUSCULAR HGB CONC 29.5 g/dL (31-35); MEAN CORPUSCULAR VOLUME 82.6 fL (81-99); MONOCYTES # (AUTO) 0.7 (0.2-0.8); MONOCYTES % 8.5 % (4.4-11.3); NEUTROPHILS # (AUTO) 5.9 (2.1-6.9); NEUTROPHILS % 75.6 % (38.7-80.0); PLATELET COUNT 353 x10e3/uL (140-360); RED BLOOD COUNT 3.57 x10e6/uL (3.6-5.1); RED CELL DISTRIBUTION WIDTH 23.4 % (11.7-14.4)
[2022-01-11 11:31] LABS: ANION GAP 16.6 mmol/L (8-16); CALCIUM 9.5 mg/dL (8.4-10.2); CREATININE, SERUM 1.89 mg/dL (0.57-1.11); POTASSIUM 3.6 mmol/L (3.5-5.1)
[2022-01-11] MEDS: FUROSEMIDE 40 MG TAB PO SCH (17:08)
[2022-01-11] MEDS: ATORVASTATIN 10 MG TAB PO SCH (21:36)
[2022-01-11] MEDS: HYDROMORPHONE 1MG/1ML INJ IV PRN (22:57)
[2022-01-11] MEDS: ONDANSETRON HCL 4 MG ORAL DISINTEGRATING TAB SL PRN (22:58)
[2022-01-11] MEDS: MELATONIN 5 MG TABLET PO PRN (22:58)
[2022-01-12] VITALS (8 sets, daily range): BP systolic 113–159; BP diastolic 60–85
[2022-01-12] MEDS: ALBUTEROL/IPRATROPIUM 3 ML NEB NEB SCH ×6 (01:49→22:18)
[2022-01-12] MEDS: GUAIFENESIN 600 MG TAB PO SCH ×4 (01:55→17:10)
[2022-01-12] MEDS: FUROSEMIDE 40 MG TAB PO SCH ×2 (05:58→17:10)
[2022-01-12] MEDS: METHYLPREDNISOLONE SOD SUCC 40 MG/ML VIAL 1ML IV SCH (05:58)
[2022-01-12] MEDS: FAMOTIDINE 20 MG TAB PO SCH ×2 (05:58→17:10)
[2022-01-12 07:14] LABS: ALBUMIN 3.4 g/dL (3.5-5.0); ALBUMIN/GLOBULIN RATIO 1.3 (0.8-2.0); ANION GAP 15.5 mmol/L (8-16); CALCIUM 9.1 mg/dL (8.4-10.2); CREATININE, SERUM 1.65 mg/dL (0.57-1.11); POTASSIUM 3.5 mmol/L (3.5-5.1)
[2022-01-12] MEDS ORDERED: METHYLPREDNISOLONE SOD SUCC 40 MG/ML VIAL 1ML IV SCH (07:30)
[2022-01-12 07:44] LABS: BASOPHILS % 0.4 % (0.0-1.0); EOSINOPHILS # (AUTO) 0.2 (0.0-0.4); EOSINOPHILS % 1.9 % (0.0-6.0); HEMATOCRIT 30.8 % (34.2-44.1); HEMOGLOBIN 8.9 g/dL (12.0-16.0); LYMPHOCYTES # (AUTO) 0.9 (1.0-3.2); LYMPHOCYTES % 10.7 % (18.0-39.1); MEAN CORPUSCULAR HEMOGLOBIN 24.3 pg (28-32); MEAN CORPUSCULAR HGB CONC 28.9 g/dL (31-35); MEAN CORPUSCULAR VOLUME 84.2 fL (81-99); MONOCYTES # (AUTO) 0.5 (0.2-0.8); MONOCYTES % 5.8 % (4.4-11.3); NEUTROPHILS # (AUTO) 6.7 (2.1-6.9); PLATELET COUNT 231 x10e3/uL (140-360); RED BLOOD COUNT 3.66 x10e6/uL (3.6-5.1); RED CELL DISTRIBUTION WIDTH 23.2 % (11.7-14.4)
[2022-01-12] MEDS: ASPIRIN 81 MG ENTERIC COATED PO SCH (10:00)
[2022-01-12] MEDS: AZITHROMYCIN 250 MG TAB PO SCH (10:00)
[2022-01-12] MEDS: AMLODIPINE BESYLATE 5 MG TAB PO SCH (10:00)
[2022-01-12] MEDS: METOPROLOL SUCCINATE 25 MG TAB XL PO SCH (10:00)
[2022-01-12] MEDS: CITALOPRAM HYDROBROMIDE 20 MG TAB PO SCH (10:02)
[2022-01-12] MEDS: HYDROCODONE/APAP 10MG-325MG TAB PO PRN ×2 (10:10→14:40)
[2022-01-12 17:09] LABS: DURATION, URINE COLLECTION 24 hrs
[2022-01-12 17:58] LABS: TOTAL VOLUME, URINE 700 ml/24hr (800-2000)
[2022-01-12 18:46] LABS: CREATININE 24 HOUR,URINE 35 mg/24hr (600-1800); CREATININE,URINE RANDOM < 5.00 mg/dL (47-110)
[2022-01-12] MEDS: HYDROMORPHONE 1MG/1ML INJ IV PRN (18:52)
[2022-01-12] MEDS: ATORVASTATIN 10 MG TAB PO SCH (22:06)
[2022-01-13] VITALS (7 sets, daily range): BP systolic 133–159; BP diastolic 66–86
[2022-01-13] MEDS: HYDROMORPHONE 1MG/1ML INJ IV PRN (01:30)
[2022-01-13] MEDS: ALBUTEROL/IPRATROPIUM 3 ML NEB NEB SCH ×6 (03:00→23:00)
[2022-01-13] MEDS: GUAIFENESIN 600 MG TAB PO SCH ×4 (05:59→17:07)
[2022-01-13] MEDS: METHYLPREDNISOLONE SOD SUCC 40 MG/ML VIAL 1ML IV SCH (05:59)
[2022-01-13] MEDS: FUROSEMIDE 40 MG TAB PO SCH ×2 (05:59→17:07)
[2022-01-13] MEDS: FAMOTIDINE 20 MG TAB PO SCH ×2 (05:59→17:07)
[2022-01-13 06:25] LABS: BASOPHILS % 0.3 % (0.0-1.0); EOSINOPHILS # (AUTO) 0.2 (0.0-0.4); EOSINOPHILS % 1.7 % (0.0-6.0); HEMATOCRIT 30.3 % (34.2-44.1); LYMPHOCYTES # (AUTO) 1.8 (1.0-3.2); LYMPHOCYTES % 21.1 % (18.0-39.1); MEAN CORPUSCULAR HEMOGLOBIN 24.9 pg (28-32); MEAN CORPUSCULAR HGB CONC 29.7 g/dL (31-35); MEAN CORPUSCULAR VOLUME 83.7 fL (81-99); MONOCYTES # (AUTO) 0.8 (0.2-0.8); MONOCYTES % 8.7 % (4.4-11.3); NEUTROPHILS # (AUTO) 5.9 (2.1-6.9); NEUTROPHILS % 67.7 % (38.7-80.0); PLATELET COUNT 257 x10e3/uL (140-360); RED BLOOD COUNT 3.62 x10e6/uL (3.6-5.1); RED CELL DISTRIBUTION WIDTH 23.6 % (11.7-14.4)
[2022-01-13 06:42] LABS: ALBUMIN 3.4 g/dL (3.5-5.0); ALBUMIN/GLOBULIN RATIO 1.4 (0.8-2.0); CALCIUM 8.9 mg/dL (8.4-10.2); CREATININE, SERUM 1.64 mg/dL (0.57-1.11); MAGNESIUM 1.9 MG/DL (1.3-2.1)
[2022-01-13] MEDS ORDERED: POTASSIUM CHLORIDE 20MEQ/100ML 100 ML IV ONE (09:00)
[2022-01-13] MEDS ORDERED: POTASSIUM CHLORIDE 20 MEQ TAB CR PO ONE (09:00)
[2022-01-13 09:09] LABS: ANISOCYTOSIS SLIGHT; PLATELET ESTIMATE ADEQUATE; PLATELET MORPHOLOGY COMMENT NORMAL; POIKILOCYTOSIS SLIGHT; RBC MORPHOLOGY COMMENT NORMAL
[2022-01-13] MEDS: ASPIRIN 81 MG ENTERIC COATED PO SCH (09:27)
[2022-01-13] MEDS: CITALOPRAM HYDROBROMIDE 20 MG TAB PO SCH (09:28)
[2022-01-13] MEDS: METOPROLOL SUCCINATE 25 MG TAB XL PO SCH (09:29)
[2022-01-13] MEDS: AMLODIPINE BESYLATE 5 MG TAB PO SCH (09:29)
[2022-01-13] MEDS: AZITHROMYCIN 250 MG TAB PO SCH (09:30)
[2022-01-13] MEDS: HYDROCODONE/APAP 10MG-325MG TAB PO PRN ×3 (09:31→21:53)
[2022-01-13] MEDS: MELATONIN 5 MG TABLET PO PRN (21:53)
[2022-01-13] MEDS: ATORVASTATIN 10 MG TAB PO SCH (21:53)
[2022-01-14] VITALS (7 sets, daily range): BP systolic 123–153; BP diastolic 62–88
[2022-01-14] MEDS: ALBUTEROL/IPRATROPIUM 3 ML NEB NEB SCH ×5 (03:00→23:05)
[2022-01-14 05:02] LABS: BASOPHILS % 0.1 % (0.0-1.0); EOSINOPHILS # (AUTO) 0.1 (0.0-0.4); EOSINOPHILS % 1.6 % (0.0-6.0); HEMATOCRIT 27.7 % (34.2-44.1); HEMOGLOBIN 8.5 g/dL (12.0-16.0); LYMPHOCYTES # (AUTO) 1.5 (1.0-3.2); LYMPHOCYTES % 22.2 % (18.0-39.1); MEAN CORPUSCULAR HEMOGLOBIN 24.9 pg (28-32); MEAN CORPUSCULAR HGB CONC 30.7 g/dL (31-35); MONOCYTES # (AUTO) 0.7 (0.2-0.8); NEUTROPHILS # (AUTO) 4.5 (2.1-6.9); NEUTROPHILS % 65.8 % (38.7-80.0); PLATELET COUNT 261 x10e3/uL (140-360); RED BLOOD COUNT 3.42 x10e6/uL (3.6-5.1); RED CELL DISTRIBUTION WIDTH 23.5 % (11.7-14.4)
[2022-01-14 05:33] LABS: ALBUMIN 3.1 g/dL (3.5-5.0); ALBUMIN/GLOBULIN RATIO 1.2 (0.8-2.0); ANION GAP 14.6 mmol/L (8-16); CALCIUM 9.2 mg/dL (8.4-10.2); CREATININE, SERUM 1.62 mg/dL (0.57-1.11); POTASSIUM 3.6 mmol/L (3.5-5.1)
[2022-01-14] MEDS: GUAIFENESIN 600 MG TAB PO SCH ×4 (06:00→17:18)
[2022-01-14] MEDS: FAMOTIDINE 20 MG TAB PO SCH ×2 (06:00→17:19)
[2022-01-14] MEDS: FUROSEMIDE 40 MG TAB PO SCH ×2 (06:00→17:18)
[2022-01-14] MEDS: ASPIRIN 81 MG ENTERIC COATED PO SCH (08:21)
[2022-01-14] MEDS: AZITHROMYCIN 250 MG TAB PO SCH (08:21)
[2022-01-14] MEDS: CITALOPRAM HYDROBROMIDE 20 MG TAB PO SCH (08:22)
[2022-01-14] MEDS: METOPROLOL SUCCINATE 25 MG TAB XL PO SCH (08:22)
[2022-01-14] MEDS: AMLODIPINE BESYLATE 5 MG TAB PO SCH (08:22)
[2022-01-14] MEDS: SODIUM CHLORIDE 0.9% 1000ML 1,000 ML IV SCH (10:21)
[2022-01-14] MEDS ORDERED: VERAPAMIL HCL 2.5 MG/ML 2 ML VIAL ONE (14:21)
[2022-01-14] MEDS ORDERED: HEPARIN SOD/SOD CHLORIDE 2,000 ML ONE (14:21)
[2022-01-14] MEDS ORDERED: HEPARIN SOD (PORCINE) 1000 UNIT/ML 30ML ONE (14:21)
[2022-01-14] MEDS ORDERED: SODIUM CHLORIDE 0.9% 500ML 500 ML ONE (14:22)
[2022-01-14] MEDS ORDERED: LIDOCAINE HCL 1% LOCAL INJ 20 ML VIAL ONE (14:22)
[2022-01-14] MEDS ORDERED: IOPAMIDOL 370 MG/ML 100 ML INFUS..BTL INJ ONE (14:22)
[2022-01-14] MEDS ORDERED: FENTANYL CITRATE/PF 100MCG/2 ML INJ ONE (14:49)
[2022-01-14] MEDS ORDERED: MIDAZOLAM HCL 2 MG/2 ML VIAL ONE ×2 (14:49→15:35)
[2022-01-14] MEDS: HYDROCODONE/APAP 10MG-325MG TAB PO PRN ×2 (17:20→22:12)
[2022-01-14] MEDS: ACETYLCYSTEINE 20% INHAL SOLN 30 ML VIAL PO SCH (21:00)
[2022-01-14] MEDS: ATORVASTATIN 10 MG TAB PO SCH (21:05)
[2022-01-14] MEDS: ONDANSETRON HCL 4 MG ORAL DISINTEGRATING TAB SL PRN (22:12)
[2022-01-15 00:37] VITALS: BP 144/64
[2022-01-15] MEDS: MELATONIN 5 MG TABLET PO PRN (00:44)
[2022-01-15] MEDS: SODIUM CHLORIDE 0.9% 1000ML 1,000 ML IV SCH ×2 (00:44→13:55)
[2022-01-15] MEDS: GUAIFENESIN 600 MG TAB PO SCH ×3 (00:44→13:12)
[2022-01-15 04:00] VITALS: BP 136/66
[2022-01-15] MEDS: ALBUTEROL/IPRATROPIUM 3 ML NEB NEB SCH ×4 (04:00→15:00)
[2022-01-15] MEDS: HYDROCODONE/APAP 10MG-325MG TAB PO PRN ×2 (05:04→13:14)
[2022-01-15] MEDS: FAMOTIDINE 20 MG TAB PO SCH (05:05)
[2022-01-15] MEDS: FUROSEMIDE 40 MG TAB PO SCH (05:05)
[2022-01-15 05:51] LABS: BASOPHILS # (AUTO) 0.1 (0.0-0.1); BASOPHILS % 0.6 % (0.0-1.0); EOSINOPHILS # (AUTO) 0.4 (0.0-0.4); EOSINOPHILS % 4.5 % (0.0-6.0); HEMOGLOBIN 9.2 g/dL (12.0-16.0); LYMPHOCYTES # (AUTO) 1.6 (1.0-3.2); LYMPHOCYTES % 19.6 % (18.0-39.1); MEAN CORPUSCULAR HEMOGLOBIN 24.9 pg (28-32); MEAN CORPUSCULAR HGB CONC 28.8 g/dL (31-35); MEAN CORPUSCULAR VOLUME 86.5 fL (81-99); MONOCYTES # (AUTO) 0.6 (0.2-0.8); NEUTROPHILS # (AUTO) 5.3 (2.1-6.9); PLATELET COUNT 259 x10e3/uL (140-360); RED CELL DISTRIBUTION WIDTH 24.6 % (11.7-14.4)
[2022-01-15 06:41] LABS: ALBUMIN 3.3 g/dL (3.5-5.0); ALBUMIN/GLOBULIN RATIO 1.2 (0.8-2.0); CALCIUM 9.3 mg/dL (8.4-10.2); CREATININE, SERUM 1.64 mg/dL (0.57-1.11)
[2022-01-15 08:10] VITALS: BP 151/76
[2022-01-15] MEDS: ACETYLCYSTEINE 20% INHAL SOLN 30 ML VIAL PO SCH ×2 (09:00→10:50)
[2022-01-15] MEDS: AMLODIPINE BESYLATE 5 MG TAB PO SCH (09:29)
[2022-01-15] MEDS: AZITHROMYCIN 250 MG TAB PO SCH (09:30)
[2022-01-15] MEDS: METOPROLOL SUCCINATE 25 MG TAB XL PO SCH (09:30)
[2022-01-15] MEDS: CITALOPRAM HYDROBROMIDE 20 MG TAB PO SCH (09:30)
[2022-01-15] MEDS: ASPIRIN 81 MG ENTERIC COATED PO SCH (09:30)
[2022-01-15 09:33] VITALS: BP 151/76
[2022-01-15 12:04] VITALS: BP 143/77
[2022-01-15] MEDS ORDERED: IOPAMIDOL 370 MG/ML 100 ML INFUS..BTL INJ ONE (14:24)
[2022-01-15 17:10] VITALS: BP 149/87
== END 2022-01-15 18:23 | disposition home or self-care (01) | DRG 280 ==
LOC: ER 14:15 → ERHOLD 16:57 → MED/SURG 20:56 → OBSVTOIN 01-07 13:43
PROVIDERS: ADMIT Internal Medicine; ATTEND Internal Medicine
PROC: 02HV33Z Insertion of Infusion Device into Superior Vena Cava, Percutaneous Approach (ICD-10-PCS; 2022-01-06)
PROC: 0T9030Z Drainage of Right Kidney with Drainage Device, Percutaneous Approach (ICD-10-PCS; 2022-01-10)
PROC: 4A023N7 Measurement of Cardiac Sampling and Pressure, Left Heart, Percutaneous Approach (ICD-10-PCS; principal; 2022-01-14)
PROC: B2111ZZ Fluoroscopy of Multiple Coronary Arteries using Low Osmolar Contrast (ICD-10-PCS; 2022-01-14)
PROC: B2151ZZ Fluoroscopy of Left Heart using Low Osmolar Contrast (ICD-10-PCS; 2022-01-14)
PROC: B241ZZ3 Ultrasonography of Multiple Coronary Arteries, Intravascular (ICD-10-PCS; 2022-01-14)
PROC: BT111ZZ Fluoroscopy of Right Kidney using Low Osmolar Contrast (ICD-10-PCS; 2022-01-15)
PROC: 0TP5X0Z Removal of Drainage Device from Kidney, External Approach (ICD-10-PCS; 2022-01-15)
DX: I13.0 Hypertensive heart and chronic kidney disease with heart failure and stage 1 through stage 4 chronic kidney disease, or unspecified chronic kidney disease (principal); I21.4 Non-ST elevation (NSTEMI) myocardial infarction; I50.21 Acute systolic (congestive) heart failure; N17.9 Acute kidney failure, unspecified; J44.1 Chronic obstructive pulmonary disease with (acute) exacerbation; N13.0 Hydronephrosis with ureteropelvic junction obstruction; E87.1 Hypo-osmolality and hyponatremia; N18.4 Chronic kidney disease, stage 4 (severe); M34.1 CR(E)ST syndrome; I73.00 Raynaud's syndrome without gangrene; I25.10 Atherosclerotic heart disease of native coronary artery without angina pectoris; E78.5 Hyperlipidemia, unspecified; R09.02 Hypoxemia; D50.9 Iron deficiency anemia, unspecified; I73.9 Peripheral vascular disease, unspecified; F41.9 Anxiety disorder, unspecified; I25.5 Ischemic cardiomyopathy; Z90.49 Acquired absence of other specified parts of digestive tract; Z88.5 Allergy status to narcotic agent; Z89.022 Acquired absence of left finger(s); Z89.021 Acquired absence of right finger(s); Z82.49 Family history of ischemic heart disease and other diseases of the circulatory system; Z87.891 Personal history of nicotine dependence; Z80.1 Family history of malignant neoplasm of trachea, bronchus and lung; Z84.89 Family history of other specified conditions; Z82.0 Family history of epilepsy and other diseases of the nervous system; Z95.820 Peripheral vascular angioplasty status with implants and grafts; Z20.822 Contact with and (suspected) exposure to COVID-19; N39.46 Mixed incontinence; Z87.440 Personal history of urinary (tract) infections
CPT/HCPCS: 36415; 50432; 71045; 74176; 74425; 74470; 76770; 76942; 80048; 80053; 80061; 81001; 82550; 82553; 82575; 82728; 83540; 83690; 83735; 83880; 84100; 84466; 84484; 84550; 85025; 85610; 85730; 86850; 86900; 87070; 87086; 87186; 87205; 92978; 93005; 93306; 93458; 94640; 94799; 99152; 99153; 99251; 99284; C1753; C1760; C1769; C1887; G0378; J0696; J1170; J1644; J1756; J1940; J2001; J2250; J2405; J2550; J2920; J2930; J3010; J3480; J7030; J7040; J7050; Q0162; Q9967

== ENCOUNTER → 2022-05-14 | Day surgery (SDC) | payer MEDICARE ==
[2022-05-13 12:07] LABS: BASOPHILS # (AUTO) 0.1 (0.0-0.1); BASOPHILS % 1.3 % (0.0-1.0); EOSINOPHILS # (AUTO) 0.1 (0.0-0.4); EOSINOPHILS % 1.1 % (0.0-6.0); HEMATOCRIT 34.1 % (34.2-44.1); LYMPHOCYTES # (AUTO) 1.1 (1.0-3.2); LYMPHOCYTES % 19.6 % (18.0-39.1); MEAN CORPUSCULAR HEMOGLOBIN 21.6 pg (28-32); MEAN CORPUSCULAR HGB CONC 29.3 g/dL (31-35); MEAN CORPUSCULAR VOLUME 73.8 fL (81-99); MONOCYTES # (AUTO) 0.4 (0.2-0.8); MONOCYTES % 7.8 % (4.4-11.3); NEUTROPHILS # (AUTO) 3.8 (2.1-6.9); PLATELET COUNT 250 x10e3/uL (140-360); RED BLOOD COUNT 4.62 x10e6/uL (3.6-5.1); RED CELL DISTRIBUTION WIDTH 23.1 % (11.7-14.4)
[2022-05-13 12:22] LABS: ANION GAP 16.8 mmol/L (8-16); CREATININE, SERUM 1.15 mg/dL (0.57-1.11); POTASSIUM 4.8 mmol/L (3.5-5.1)
[2022-05-13 12:45] LABS: ANISOCYTOSIS MODERATE; PLATELET ESTIMATE ADEQUATE; PLATELET MORPHOLOGY COMMENT NORMAL; RBC MORPHOLOGY COMMENT ABNORMAL
[2022-05-13 12:46] LABS: HYPOCHROMASIA MODERATE; MICROCYTOSIS MODERATE; TARGET CELLS FEW
[~2022-05-14] MED LIST changes: +ACETAMINOPHEN 1000 MG/100 ML 100 ML IV ONE; +BUMETANIDE1 MG PO; +CEFTRIAXONE 1 GM VIAL ONE; +CIALIS10 MG; +DEXAMETHASONE SOD PHOS INJ 4 MG/ML SDV ONE; +FENTANYL CITRATE/PF 100MCG/2 ML INJ ONE; +FLECTOR1 EACH PO; +FUROSEMIDE20 MG PO; +IOPAMIDOL 610MG/1ML 300 MG/ML VIAL IV ONE; +K-DUR10 MEQ PO; +LIDOCAINE HCL 2% LOCAL INJ 5 ML SDV VIAL INJ ONE; +ONDANSETRON HCL INJ 2MG/ML 2ML 2 MG/ML VIAL ONE; +PHENAZOPYRIDINE HCL 100 MG TAB ONE; +POVIDONE IODINE 0.05% 0.05 % ML PO ONE; +PROPOFOL IV EMULSION 10 MG/ML 20 ML VIAL ONE; +SEVOFLURANE INHAL SOLN 250 ML PEN BTL ONE; +VITAMIN B COMP1 EACH IM
[2022-05-14 13:20] VITALS: BP 150/68
== END | disposition home or self-care (01) ==
LOC: OR 08:46
PROVIDERS: ATTEND Urology
DX: N13.1 Hydronephrosis with ureteral stricture, not elsewhere classified (principal); N35.92 Unspecified urethral stricture, female; N32.89 Other specified disorders of bladder; R35.1 Nocturia; I12.9 Hypertensive chronic kidney disease with stage 1 through stage 4 chronic kidney disease, or unspecified chronic kidney disease; N18.9 Chronic kidney disease, unspecified; N81.6 Rectocele; N81.2 Incomplete uterovaginal prolapse; N95.2 Postmenopausal atrophic vaginitis; I25.2 Old myocardial infarction; J44.9 Chronic obstructive pulmonary disease, unspecified; J81.1 Chronic pulmonary edema; K21.9 Gastro-esophageal reflux disease without esophagitis; F41.9 Anxiety disorder, unspecified; Z88.6 Allergy status to analgesic agent; Z88.8 Allergy status to other drugs, medicaments and biological substances; Z01.812 Encounter for preprocedural laboratory examination; Z79.82 Long term (current) use of aspirin; Z79.899 Other long term (current) drug therapy
CPT/HCPCS: 36415; 52332; 52344; 74420; 80048; 85025; 87086; C1758; C1766; C1769; C2617; J0131; J0696; J1100; J2001; J2405; J2704; J3010; Q9967

== ENCOUNTER → 2022-06-25 | Day surgery (SDC) | payer MEDICARE ==
[2022-06-24 14:20] LABS: BASOPHILS # (AUTO) 0.1 (0.0-0.1); BASOPHILS % 1.3 % (0.0-1.0); EOSINOPHILS # (AUTO) 0.2 (0.0-0.4); EOSINOPHILS % 2.7 % (0.0-6.0); HEMATOCRIT 31.1 % (34.2-44.1); HEMOGLOBIN 9.3 g/dL (12.0-16.0); LYMPHOCYTES # (AUTO) 1.6 (1.0-3.2); LYMPHOCYTES % 23.1 % (18.0-39.1); MEAN CORPUSCULAR HEMOGLOBIN 21.2 pg (28-32); MEAN CORPUSCULAR HGB CONC 29.9 g/dL (31-35); MONOCYTES # (AUTO) 0.5 (0.2-0.8); MONOCYTES % 7.4 % (4.4-11.3); NEUTROPHILS # (AUTO) 4.6 (2.1-6.9); NEUTROPHILS % 65.4 % (38.7-80.0); PLATELET COUNT 284 x10e3/uL (140-360); RED BLOOD COUNT 4.38 x10e6/uL (3.6-5.1); RED CELL DISTRIBUTION WIDTH 20.6 % (11.7-14.4)
[2022-06-24 14:39] LABS: ANION GAP 14.9 mmol/L (8-16); CALCIUM 9.3 mg/dL (8.4-10.2); CREATININE, SERUM 1.23 mg/dL (0.57-1.11); POTASSIUM 3.9 mmol/L (3.5-5.1)
[~2022-06-25] MED LIST changes: -ACETAMINOPHEN 1000 MG/100 ML 100 ML IV ONE; +GENTAMICIN 80MG/NS 100 ML 200 ML IV ONE; -IOPAMIDOL 610MG/1ML 300 MG/ML VIAL IV ONE; +LACTATED RINGER'S 1,000 ML ONE; +MIDAZOLAM HCL 2 MG/2 ML VIAL ONE; +SCOPOLAMINE 1 MG PATCH ONE
[2022-06-25 11:00] VITALS: BP 138/68
== END | disposition home or self-care (01) ==
LOC: OR 06:42
PROVIDERS: ATTEND Urology
DX: N13.5 Crossing vessel and stricture of ureter without hydronephrosis (principal); Z46.6 Encounter for fitting and adjustment of urinary device; N81.10 Cystocele, unspecified; N81.6 Rectocele; N36.41 Hypermobility of urethra; N95.2 Postmenopausal atrophic vaginitis; Z01.810 Encounter for preprocedural cardiovascular examination; Z01.812 Encounter for preprocedural laboratory examination; Z79.899 Other long term (current) drug therapy
CPT/HCPCS: 36415; 52351; 74420; 80048; 84550; 85025; 87086; 93005; C1769; J0696; J1100; J1580; J2001; J2250; J2405; J2704; J3010; J7121

== ENCOUNTER → 2022-07-24 | Outpatient (CLI) | payer MEDICARE ==
[~2022-07-24] MED LIST changes: -CEFTRIAXONE 1 GM VIAL ONE; -DEXAMETHASONE SOD PHOS INJ 4 MG/ML SDV ONE; -FENTANYL CITRATE/PF 100MCG/2 ML INJ ONE; -GENTAMICIN 80MG/NS 100 ML 200 ML IV ONE; -LACTATED RINGER'S 1,000 ML ONE; -LIDOCAINE HCL 2% LOCAL INJ 5 ML SDV VIAL INJ ONE; -MIDAZOLAM HCL 2 MG/2 ML VIAL ONE; -ONDANSETRON HCL INJ 2MG/ML 2ML 2 MG/ML VIAL ONE; -PHENAZOPYRIDINE HCL 100 MG TAB ONE; -POVIDONE IODINE 0.05% 0.05 % ML PO ONE; -PROPOFOL IV EMULSION 10 MG/ML 20 ML VIAL ONE; -SCOPOLAMINE 1 MG PATCH ONE; -SEVOFLURANE INHAL SOLN 250 ML PEN BTL ONE
== END ==
LOC: NM 07:50
PROVIDERS: ATTEND Urology
DX: N13.30 Unspecified hydronephrosis (principal)
CPT/HCPCS: 78707; A9562

== ENCOUNTER → 2022-08-28 | Outpatient (CLI) | payer MEDICARE | LOC: CT 14:13 | PROVIDERS: ATTEND Internal Medicine Medical Oncology | DX: C48.0 Malignant neoplasm of retroperitoneum (principal) | CPT/HCPCS: 74176 ==

== ENCOUNTER 2022-09-01 13:44 | Inpatient (IN) | payer MEDICARE ==
[~2022-09-01] VITALS: Ht 167.6 cm; Wt 46.4 kg
[2022-09-01] MEDS ORDERED: ROPIVACAINE 0.5% 5 MG/ML 30 ML SDV ONE (13:46)
[2022-09-01 14:44] VITALS: BP 116/79; PULSE 76; RESP 18; TEMP 98; O2SAT 98
[2022-09-01] MEDS ORDERED: ONDANSETRON HCL INJ 2MG/ML 2ML 2 MG/ML VIAL IV PRN (16:45)
[2022-09-01] MEDS ORDERED: DIPHENHYDRAMINE HCL 25 MG CAP PO PRN (16:45)
[2022-09-01] MEDS ORDERED: HYDROCODONE/APAP 5MG-325MG TAB PO PRN (16:45)
[2022-09-01] MEDS: HYDROCODONE/APAP 10MG-325MG TAB PO PRN ×2 (17:33→21:56)
[2022-09-01] MEDS: SODIUM CHLORIDE 0.9% 1000ML 1,000 ML IV SCH (17:46)
[2022-09-01 20:00] VITALS: BP 140/70; PULSE 73; RESP 20; TEMP 98.1; O2SAT 95
[2022-09-01 21:00] VITALS: BP 140/70; PULSE 73; RESP 20; TEMP 98.1; O2SAT 95
[2022-09-02] VITALS (9 sets, daily range): BP systolic 119–139; BP diastolic 66–81; PULSE 65–73; RESP 18–20; TEMP 97.9–98.4; O2SAT 94–97
[2022-09-02] MEDS: HYDROCODONE/APAP 10MG-325MG TAB PO PRN ×2 (03:36→08:58)
[2022-09-02] MEDS ORDERED: ALBUTEROL SULFATE HFA 8GM INHALATION AEROSOL INH PRN (04:30)
[2022-09-02 06:27] LABS: BASOPHILS # (AUTO) 0.1 (0.0-0.1); BASOPHILS % 1.3 % (0.0-1.0); EOSINOPHILS # (AUTO) 0.3 (0.0-0.4); EOSINOPHILS % 3.1 % (0.0-6.0); HEMATOCRIT 31.6 % (34.2-44.1); HEMOGLOBIN 9.2 g/dL (12.0-16.0); LYMPHOCYTES # (AUTO) 1.4 (1.0-3.2); LYMPHOCYTES % 17.8 % (18.0-39.1); MEAN CORPUSCULAR HEMOGLOBIN 23.8 pg (28-32); MEAN CORPUSCULAR HGB CONC 29.1 g/dL (31-35); MEAN CORPUSCULAR VOLUME 81.9 fL (81-99); MONOCYTES # (AUTO) 0.7 (0.2-0.8); MONOCYTES % 8.7 % (4.4-11.3); NEUTROPHILS # (AUTO) 5.5 (2.1-6.9); NEUTROPHILS % 68.6 % (38.7-80.0); PLATELET COUNT 292 x10e3/uL (140-360); RED BLOOD COUNT 3.86 x10e6/uL (3.6-5.1); RED CELL DISTRIBUTION WIDTH 30.6 % (11.7-14.4)
[2022-09-02 06:59] LABS: ALBUMIN 2.6 g/dL (3.5-5.0); ALBUMIN/GLOBULIN RATIO 0.9 (0.8-2.0); ANION GAP 14.3 mmol/L (8-16); CALCIUM 8.7 mg/dL (8.4-10.2); CREATININE, SERUM 1.08 mg/dL (0.57-1.11); MAGNESIUM 1.9 MG/DL (1.3-2.1); POTASSIUM 4.3 mmol/L (3.5-5.1)
[2022-09-02] MEDS: CITALOPRAM HYDROBROMIDE 20 MG TAB PO SCH (08:56)
[2022-09-02] MEDS: AMLODIPINE BESYLATE 5 MG TAB PO SCH (08:57)
[2022-09-02 10:39] LABS: ANISOCYTOSIS MARKED; PLATELET ESTIMATE ADEQUATE; PLATELET MORPHOLOGY COMMENT NORMAL; RBC MORPHOLOGY COMMENT ABNORMAL
[2022-09-02 10:40] LABS: HYPOCHROMASIA SLIGHT; POLYCHROMASIA FEW
[2022-09-02] MEDS ORDERED: ONDANSETRON HCL 4 MG ORAL DISINTEGRATING TAB PO PRN (13:15)
[2022-09-02] MEDS: SODIUM CHLORIDE 0.9% 1000ML 1,000 ML IV SCH (14:57)
[2022-09-03] VITALS (8 sets, daily range): BP systolic 121–152; BP diastolic 64–79; PULSE 72–88; RESP 18–20; TEMP 98.5–98.9; O2SAT 94–100
[2022-09-03] MEDS ORDERED: HYDROMORPHONE 1MG/1ML INJ ONE ×2 (06:31→10:35)
[2022-09-03] MEDS ORDERED: SUGAMMADEX SODIUM 200 MG/2 ML VIAL IV ONE (06:31)
[2022-09-03] MEDS ORDERED: ACETAMINOPHEN 1000 MG/100 ML 100 ML IV ONE (06:32)
[2022-09-03] MEDS ORDERED: KETAMINE 50MG/5ML SYR ONE (06:32)
[2022-09-03] MEDS: CITALOPRAM HYDROBROMIDE 20 MG TAB PO SCH (09:00)
[2022-09-03] MEDS: AMLODIPINE BESYLATE 5 MG TAB PO SCH (09:00)
[2022-09-03] MEDS ORDERED: DIPHENHYDRAMINE HCL INJ 50 MG/ML VIAL IM PRN (09:45)
[2022-09-03] MEDS ORDERED: SODIUM CHLORIDE 0.9% 250ML IRRIG IR SCH (09:45)
[2022-09-03] MEDS ORDERED: NALOXONE HCL INJ 0.4 MG/ML AMP IV PRN (09:45)
[2022-09-03] MEDS ORDERED: ONDANSETRON HCL INJ 2MG/ML 2ML 2 MG/ML VIAL IV PRN (09:45)
[2022-09-03] MEDS ORDERED: ACETAMINOPHEN 1000 MG/100 ML IV PRN (09:45)
[2022-09-03] MEDS: MORPHINE SULFATE 1 MG/ML 30ML PCA IV PRN ×2 (09:50→21:03)
[2022-09-03 09:59] LABS: BASOPHILS # (AUTO) 0.1 (0.0-0.1); BASOPHILS % 0.5 % (0.0-1.0); EOSINOPHILS % 0.2 % (0.0-6.0); HEMATOCRIT 34.6 % (34.2-44.1); LYMPHOCYTES # (AUTO) 0.8 (1.0-3.2); LYMPHOCYTES % 4.7 % (18.0-39.1); MEAN CORPUSCULAR HEMOGLOBIN 24.4 pg (28-32); MEAN CORPUSCULAR HGB CONC 28.9 g/dL (31-35); MEAN CORPUSCULAR VOLUME 84.4 fL (81-99); MONOCYTES # (AUTO) 0.1 (0.2-0.8); MONOCYTES % 0.6 % (4.4-11.3); NEUTROPHILS # (AUTO) 16.2 (2.1-6.9); NEUTROPHILS % 93.2 % (38.7-80.0); PLATELET COUNT 269 x10e3/uL (140-360); RED CELL DISTRIBUTION WIDTH 31.4 % (11.7-14.4)
[2022-09-03 10:15] LABS: ANION GAP 15.4 mmol/L (8-16); CALCIUM 8.7 mg/dL (8.4-10.2); CREATININE, SERUM 1.15 mg/dL (0.57-1.11); POTASSIUM 4.4 mmol/L (3.5-5.1)
[2022-09-03] MEDS: SODIUM CHLORIDE 0.9% 1000ML 1,000 ML IV SCH ×2 (12:06→20:54)
[2022-09-03] MEDS ORDERED: FENTANYL CITRATE/PF 100MCG/2 ML INJ ONE (13:05)
[2022-09-03] MEDS ORDERED: MIDAZOLAM HCL 2 MG/2 ML VIAL ONE (13:05)
[2022-09-03] MEDS ORDERED: PHENYLEPHRINE HCL 1% 10 MG/ML VIAL ONE (13:25)
[2022-09-03] MEDS ORDERED: POVIDONE IODINE 0.05% 0.05 % ML PO ONE (13:25)
[2022-09-03] MEDS ORDERED: DEXAMETHASONE SOD PHOS INJ 4 MG/ML SDV ONE (13:25)
[2022-09-03] MEDS ORDERED: PROPOFOL IV EMULSION 10 MG/ML 20 ML VIAL ONE (13:25)
[2022-09-03] MEDS ORDERED: ONDANSETRON HCL INJ 2MG/ML 2ML 2 MG/ML VIAL ONE (13:25)
[2022-09-03] MEDS ORDERED: ROCURONIUM BROMIDE 10 MG/ML 5ML VIAL IV ONE (13:25)
[2022-09-03] MEDS ORDERED: LIDOCAINE HCL 2% LOCAL INJ 5 ML SDV VIAL INJ ONE (13:25)
[2022-09-03] MEDS ORDERED: SEVOFLURANE INHAL SOLN 250 ML PEN BTL ONE (13:25)
[2022-09-03] MEDS ORDERED: EPHEDRINE SULFATE INJ 50 MG/ML VIAL ONE (13:25)
[2022-09-03] MEDS ORDERED: CHLORASEPTIC SPRAY 177 ML BTL MM PRN (17:00)
[2022-09-04] VITALS (9 sets, daily range): BP systolic 103–115; BP diastolic 54–64; PULSE 70–84; RESP 16–20; TEMP 98–98.8; O2SAT 94–100
[2022-09-04] MEDS: SODIUM CHLORIDE 0.9% 1000ML 1,000 ML IV SCH ×2 (07:16→17:27)
[2022-09-04] MEDS: AMLODIPINE BESYLATE 5 MG TAB PO SCH (09:00)
[2022-09-04] MEDS ORDERED: ACETAMINOPHEN 1000 MG/100 ML IV PRN (09:00)
[2022-09-04] MEDS: CITALOPRAM HYDROBROMIDE 20 MG TAB PO SCH (09:00)
[2022-09-04] MEDS ORDERED: MORPHINE SULFATE 1 MG/ML 30ML PCA IV PRN (09:00)
[2022-09-04] MEDS ORDERED: ONDANSETRON HCL 4 MG ORAL DISINTEGRATING TAB PO PRN (14:30)
[2022-09-05] VITALS (10 sets, daily range): BP systolic 112–154; BP diastolic 51–110; PULSE 66–88; RESP 16–20; TEMP 97.6–98.9; O2SAT 91–100
[2022-09-05] MEDS: SODIUM CHLORIDE 0.9% 1000ML 1,000 ML IV SCH ×3 (04:00→23:20)
[2022-09-05 06:11] LABS: BASOPHILS # (AUTO) 0.1 (0.0-0.1); BASOPHILS % 0.7 % (0.0-1.0); EOSINOPHILS # (AUTO) 0.1 (0.0-0.4); EOSINOPHILS % 0.5 % (0.0-6.0); HEMATOCRIT 29.5 % (34.2-44.1); HEMOGLOBIN 8.5 g/dL (12.0-16.0); LYMPHOCYTES % 10.8 % (18.0-39.1); MEAN CORPUSCULAR HEMOGLOBIN 24.6 pg (28-32); MEAN CORPUSCULAR HGB CONC 28.8 g/dL (31-35); MEAN CORPUSCULAR VOLUME 85.5 fL (81-99); MONOCYTES # (AUTO) 0.9 (0.2-0.8); MONOCYTES % 9.2 % (4.4-11.3); NEUTROPHILS # (AUTO) 7.5 (2.1-6.9); NEUTROPHILS % 78.3 % (38.7-80.0); PLATELET COUNT 204 x10e3/uL (140-360); RED BLOOD COUNT 3.45 x10e6/uL (3.6-5.1)
[2022-09-05 06:37] LABS: ALBUMIN 2.3 g/dL (3.5-5.0); ALBUMIN/GLOBULIN RATIO 0.8 (0.8-2.0); ALKALINE PHOSPHATASE 194 IU/L (40-150); ANION GAP 12.1 mmol/L (8-16); BLOOD UREA NITROGEN 21 mg/dL (7-26); BUN/CREATININE RATIO 18 (6-25); CALCIUM 8.9 mg/dL (8.4-10.2); CARBON DIOXIDE 19 mmol/L (22-29); CHLORIDE 112 mmol/L (98-107); CREATININE, SERUM 1.15 mg/dL (0.57-1.11); GLUCOSE 69 mg/dL (74-118); POTASSIUM 4.1 mmol/L (3.5-5.1); SODIUM 139 mmol/L (136-145)
[2022-09-05 07:31] LABS: ALANINE AMINOTRANSFERASE < 6 IU/L (0-55)
[2022-09-05 09:52] LABS: ANISOCYTOSIS MARKED; HYPOCHROMASIA MODERATE; OVALOCYTES FEW; PLATELET ESTIMATE ADEQUATE; PLATELET MORPHOLOGY COMMENT NORMAL; RBC MORPHOLOGY COMMENT ABNORMAL
[2022-09-05] MEDS: AMLODIPINE BESYLATE 5 MG TAB PO SCH (09:57)
[2022-09-05] MEDS: CITALOPRAM HYDROBROMIDE 20 MG TAB PO SCH (09:57)
[2022-09-05] MEDS ORDERED: METOPROLOL SUCCINATE 50 MG TAB XL PO ONE (13:30)
[2022-09-05] MEDS: HYDROCODONE/APAP 10MG-325MG TAB PO PRN (15:52)
[2022-09-05] MEDS ORDERED: ACETAMINOPHEN/CODEINE 300MG - 30MG TAB PO PRN (16:45)
[2022-09-05] MEDS: SENNA-S TABLET PO SCH (17:00)
[2022-09-05] MEDS: ATORVASTATIN 40 MG TAB PO SCH (20:39)
[2022-09-06] VITALS (9 sets, daily range): BP systolic 95–153; BP diastolic 54–79; PULSE 58–112; RESP 16–22; TEMP 97.5–98.2; O2SAT 94–100
[2022-09-06 08:29] LABS: BASOPHILS # (AUTO) 0.1 (0.0-0.1); BASOPHILS % 0.8 % (0.0-1.0); EOSINOPHILS # (AUTO) 0.3 (0.0-0.4); HEMATOCRIT 27.5 % (34.2-44.1); HEMOGLOBIN 8.1 g/dL (12.0-16.0); LYMPHOCYTES # (AUTO) 1.2 (1.0-3.2); LYMPHOCYTES % 11.4 % (18.0-39.1); MEAN CORPUSCULAR HEMOGLOBIN 24.7 pg (28-32); MEAN CORPUSCULAR HGB CONC 29.5 g/dL (31-35); MEAN CORPUSCULAR VOLUME 83.8 fL (81-99); MONOCYTES # (AUTO) 0.8 (0.2-0.8); MONOCYTES % 7.5 % (4.4-11.3); NEUTROPHILS # (AUTO) 7.8 (2.1-6.9); PLATELET COUNT 222 x10e3/uL (140-360); RED BLOOD COUNT 3.28 x10e6/uL (3.6-5.1)
[2022-09-06] MEDS: AMLODIPINE BESYLATE 5 MG TAB PO SCH (08:52)
[2022-09-06] MEDS: METOPROLOL SUCCINATE 50 MG TAB XL PO SCH (08:52)
[2022-09-06] MEDS: SENNA-S TABLET PO SCH ×2 (08:52→16:39)
[2022-09-06] MEDS: CITALOPRAM HYDROBROMIDE 20 MG TAB PO SCH (08:52)
[2022-09-06 08:55] LABS: CALCIUM 8.7 mg/dL (8.4-10.2); CREATININE, SERUM 0.91 mg/dL (0.57-1.11)
[2022-09-06 10:52] LABS: LYMPHOCYTES % (MANUAL) 14 % (19-48); MONOCYTES % (MANUAL) 6 % (3.4-9.0); NEUTROPHILS % (MANUAL) 80 % (40-74); PLATELET ESTIMATE ADEQUATE; PLATELET MORPHOLOGY COMMENT NORMAL; RBC MORPHOLOGY COMMENT NORMAL
[2022-09-06] MEDS ORDERED: BISACODYL 10 MG SUPP PR ONE ×2 (12:00→17:00)
[2022-09-06] MEDS: HYDROCODONE/APAP 10MG-325MG TAB PO PRN ×2 (14:09→20:37)
[2022-09-06] MEDS: SODIUM CHLORIDE 0.9% 1000ML 1,000 ML IV SCH (15:47)
[2022-09-06] MEDS: ATORVASTATIN 40 MG TAB PO SCH (20:36)
[2022-09-07] VITALS (10 sets, daily range): BP systolic 124–159; BP diastolic 65–88; PULSE 62–77; RESP 17–22; TEMP 98.1–99.2; O2SAT 92–100
[2022-09-07] MEDS: SODIUM CHLORIDE 0.9% 1000ML 1,000 ML IV SCH ×2 (03:21→15:25)
[2022-09-07] MEDS: HYDROCODONE/APAP 10MG-325MG TAB PO PRN ×3 (04:37→21:24)
[2022-09-07 06:13] LABS: BASOPHILS # (AUTO) 0.1 (0.0-0.1); BASOPHILS % 0.8 % (0.0-1.0); EOSINOPHILS # (AUTO) 0.3 (0.0-0.4); EOSINOPHILS % 3.6 % (0.0-6.0); HEMATOCRIT 29.5 % (34.2-44.1); HEMOGLOBIN 8.7 g/dL (12.0-16.0); LYMPHOCYTES % 11.5 % (18.0-39.1); MEAN CORPUSCULAR HEMOGLOBIN 24.7 pg (28-32); MEAN CORPUSCULAR HGB CONC 29.5 g/dL (31-35); MEAN CORPUSCULAR VOLUME 83.8 fL (81-99); MONOCYTES # (AUTO) 0.7 (0.2-0.8); MONOCYTES % 7.8 % (4.4-11.3); NEUTROPHILS # (AUTO) 6.8 (2.1-6.9); NEUTROPHILS % 76.1 % (38.7-80.0); PLATELET COUNT 198 x10e3/uL (140-360); RED BLOOD COUNT 3.52 x10e6/uL (3.6-5.1); RED CELL DISTRIBUTION WIDTH 29.7 % (11.7-14.4)
[2022-09-07 06:25] LABS: ANION GAP 12.9 mmol/L (8-16); CALCIUM 8.1 mg/dL (8.4-10.2); CREATININE, SERUM 0.86 mg/dL (0.57-1.11); POTASSIUM 3.9 mmol/L (3.5-5.1)
[2022-09-07] MEDS: METOPROLOL SUCCINATE 50 MG TAB XL PO SCH (09:49)
[2022-09-07] MEDS: AMLODIPINE BESYLATE 5 MG TAB PO SCH (09:50)
[2022-09-07] MEDS: SENNA-S TABLET PO SCH ×2 (09:50→15:42)
[2022-09-07] MEDS: CITALOPRAM HYDROBROMIDE 20 MG TAB PO SCH (09:50)
[2022-09-07] MEDS: ATORVASTATIN 40 MG TAB PO SCH (21:03)
[2022-09-08 00:10] VITALS: PULSE 65; RESP 18; O2SAT 95
[2022-09-08 00:43] VITALS: BP 124/73; PULSE 62; RESP 16; TEMP 98.5; O2SAT 96
[2022-09-08 04:12] VITALS: BP 158/71; PULSE 62; RESP 18; TEMP 98.5; O2SAT 94
[2022-09-08] MEDS: SODIUM CHLORIDE 0.9% 1000ML 1,000 ML IV SCH (04:40)
[2022-09-08 07:51] VITALS: PULSE 75; RESP 18; O2SAT 96
[2022-09-08 08:00] VITALS: BP 159/69; PULSE 61; RESP 19; TEMP 98.1; O2SAT 95
[2022-09-08] MEDS: SENNA-S TABLET PO SCH (08:03)
[2022-09-08] MEDS: CITALOPRAM HYDROBROMIDE 20 MG TAB PO SCH (08:03)
[2022-09-08] MEDS: METOPROLOL SUCCINATE 50 MG TAB XL PO SCH (08:04)
[2022-09-08] MEDS: AMLODIPINE BESYLATE 5 MG TAB PO SCH (08:04)
[2022-09-08] MEDS: HYDROCODONE/APAP 10MG-325MG TAB PO PRN (08:19)
[2022-09-08] MEDS ORDERED: PANTOPRAZOLE SOD 40 MG TABEC PO SCH (16:30)
[2022-09-09] MEDS ORDERED: AMLODIPINE BESYLATE 10 MG TAB PO SCH (09:00)
== END 2022-09-08 11:07 | disposition home or self-care (01) | DRG 660 ==
LOC: MED/SURG3 13:44
PROVIDERS: ADMIT Internal Medicine; ATTEND Internal Medicine
PROC: 0TT00ZZ Resection of Right Kidney, Open Approach (ICD-10-PCS; principal; 2022-09-03 07:13)
DX: N26.1 Atrophy of kidney (terminal) (principal); I50.22 Chronic systolic (congestive) heart failure; I11.0 Hypertensive heart disease with heart failure; M34.9 Systemic sclerosis, unspecified; J44.9 Chronic obstructive pulmonary disease, unspecified; I25.10 Atherosclerotic heart disease of native coronary artery without angina pectoris; I95.9 Hypotension, unspecified; F41.9 Anxiety disorder, unspecified; R41.0 Disorientation, unspecified; Z99.81 Dependence on supplemental oxygen; Z89.029 Acquired absence of unspecified finger(s)
CPT/HCPCS: 36415; 71045; 74018; 80048; 80053; 83735; 83880; 85025; 88304; 88307; 93005; 93306; 94799; 96361; J0690; J1100; J1170; J2001; J2250; J2270; J2370; J2405; J2795; J7030

== ENCOUNTER 2023-07-23 12:00 | Emergency (ER) | payer MEDICARE ==
[~2023-07-23] VITALS: Ht 167.6 cm; Wt 45.4 kg
[~2023-07-23 12:00] MED LIST changes: +NAPROXEN250 MG PO
[2023-07-23 15:10] VITALS: O2SAT 100
== END 2023-07-23 16:05 | disposition home or self-care (01) ==
LOC: ER 14:36
DX: M54.50 Low back pain, unspecified (principal); R20.0 Anesthesia of skin; I10 Essential (primary) hypertension; I50.9 Heart failure, unspecified; D64.9 Anemia, unspecified; M34.9 Systemic sclerosis, unspecified; F41.9 Anxiety disorder, unspecified
CPT/HCPCS: 99283